=== PATIENT | male | born 1975 | race Hispanic/Latino ===

== ENCOUNTER 2024-09-06 19:13 | Emergency (ER) | payer SELFPAY ==
[~2024-09-06] VITALS: Ht 185.4 cm; Wt 106.1 kg
[2024-09-06 20:14] LABS: BASOPHILS # (AUTO) 0.09 K/uL (0.00-0.20); BASOPHILS % (AUTO) 0.7 % (0.0-5.0); EOSINOPHILS # (AUTO) 0.35 K/uL (0.00-0.70); EOSINOPHILS % (AUTO) 2.6 % (0.0-8.0); HEMATOCRIT 37.2 % (42-54); IMMATURE GRANULOCYTE ABSOLUTE 0.08 K/uL (0-1); LYMPHOCYTES # (AUTO) 2.1 K/uL (1.0-4.8); LYMPHOCYTES % (AUTO) 15.5 % (21.0-51.0); MEAN CORPUSCULAR HEMOGLOBIN 29.9 pg (27.0-33.0); MEAN CORPUSCULAR HGB CONC 34.7 g/dL (32.0-36.0); MEAN CORPUSCULAR VOLUME 86.1 fL (79-99); MONOCYTES # (AUTO) 1.4 K/uL (0.1-1.0); MONOCYTES % (AUTO) 10.4 % (3.0-13.0); NEUTROPHILS # (AUTO) 9.5 K/uL (1.8-7.7); NEUTROPHILS % (AUTO) 70.2 % (40.0-77.0); PLATELET COUNT (AUTO) 252 K/uL (130-400); RED BLOOD CELL COUNT(AUTO) 4.32 MIL/uL (4.50-6.20); RED CELL DISTRIBUTION WIDTH 13.6 % (11.0-15.5); WHITE BLOOD COUNT (AUTO) 13.5 K/uL (4.8-10.8)
[2024-09-06 20:28] LABS: CARBON DIOXIDE 24 mmol/L (21-32); CHLORIDE 106 mmol/L (101-111); GLOMERULAR FILTR. RATE CALC 93 mL/min (>90); GLUCOSE,RANDOM 99 mg/dL (70-105); POTASSIUM 4.2 mmol/L (3.5-5.1); SODIUM SERUM 138 mmol/L (136-145); UREA NITROGEN, BLOOD 9 mg/dL (7-18)
--- NOTE | 2024-09-06 20:31 | HMCIMG ---
RIGHT FOOT RADIOGRAPHS - 3 VIEWS INDICATION: Nonhealing ulcer right great toe COMPARISON: None FINDINGS: AP, lateral, and oblique views. No acute fracture or subluxation identified. No evidence for periosteal reaction, cortical erosive changes, or any abnormal subperiosteal bone resorption. Midfoot alignment is well maintained. No radiopaque foreign body noted. IMPRESSION: No evidence for osteomyelitis.
--- NOTE | 2024-09-06 21:30 | NUR ---
WOUND CARE DONE ORDERED
[2024-09-06 21:47] LABS: ERYTHROCYTE SEDIMENTATION RATE 27 MM/HR (0-15)
[2024-09-06] MEDS: CLINDAMYCIN IVPB 600MG/50ML 50 ML IV SCH (22:12)
[2024-09-06] MEDS: ketOROlac 15MG/ML VIAL (15MG/ML) IV ONE (22:12)
[2024-09-06] MEDS ORDERED: CLIN-141 PO (23:09)
[2024-09-06] MEDS ORDERED: KETO10TA2 PO (23:10)
--- NOTE | 2024-09-06 23:11 | ERN ---
General Chief Complaint: Wound Check Stated Complaint: RIGHT FOOT SWOLLEN Time Seen by MD: 19:16 Time Seen by Midlevel: 19:16 Source: patient History of Present Illness Initial Comments The patient is a 49-year-old morbidly obese male with a past medical history of uncontrolled type 2 diabetes presenting to the emergency department for evaluation of a wound to his right great toe. The patient reports have having a diabetic foot ulcer under his right great toe for the last eight months. Most recently he has noticed an increase in redness to his great toe so he decided to report to the ER for further evaluation. He does not take any medication for his 80s. The last time he took medication was six months ago and it was metformin. Denies any other symptoms. Allergies: Coded Allergies: No Known Allergies (Unverified Allergy, Unknown, 09/06/24) Home Meds Active Scripts Ketorolac Tromethamine (Ketorolac Tromethamine) 10 Mg Tablet, 1 TAB PO TID for pain for 5 Days, #15 TAB 0 Refills Prov:JARROD COLON 09/06/24 Clindamycin HCl (Clindamycin HCl) 300 Mg Capsule, 1 CAP PO QID for 10 Days, #40 CAP 0 Refills Prov:JARROD COLON 09/06/24 Past Medical History Past Medical History: Diabetes-Type II Past Surgical History: Unknown ROS Dictation CONSTITUTIONAL: Negative except for HPI HEAD/FACE: Negative except for HPI EENT: Negative except for HPI RESPIRATORY: Negative except for HPI GASTROINTESTINAL/ABDOMINAL: Negative except for HPI GENITOURINARY: Negative except for HPI MUSCULOSKELETAL: Negative except for HPI INTEGUMENTARY: Negative except for HPI NEUROLOGICAL/PSYCH: Negative except for HPI HEMATOLOGIC/LYMPHATIC: Negative except for HPI All Systems Negative, Except as noted above. 13 point review of systems assessed and all negative except for above. Physical Exam Physical Exam Dictation Vital Signs reviewed General Appearance: Alert, oriented x 3, no acute distress, morbidly obese Head and Face: non-traumatic. Eyes: PERRL, pink conjunctivas, eyelid no trauma, anterior chamber with arcus senilis. Ears: Pinnas intact and no signs of trauma or erythema ear canals clear and no discharge TM no erythema Nose: No discharge, no bleeding. Oropharynx: Mouth normal, tongue pink, pharynx clear,no erythema, tonsils no exudates, no abscesses noted, mucous membrane moist Neck: Supple, non-tender, no thyromegaly, no masses, no JVD, no bruits Breast:Deferred Chest:No tenderness, no crepitus, no paradoxical movement, no retractions Lungs:Clear, well-ventilated, symmetric, no rales, no wheezing, no rhonchi, no stridor, good breath sounds bilaterally Heart: Regular rate, regular rhythm, no murmur, no gallops Vascular: no peripheral edema, Abdomen: Soft, positive bowel sounds, nondistended, no guarding, nontender, no rebound, no masses no hepatomegaly, no splenomegaly, no Cotter's sign, no hernias. Rectal: Deferred Genital: Deferred Neurological: Normal speech, motor function intact, sensory function intact Musculoskeletal: Neck nontender, full range of motion, back nontender, full range of motion, Extremities: nontender, full range of motion Skin: Diabetic foot ulcer to the plantar aspect of the right great toe, there is some mild soft tissue swelling and redness to the right great toe. Pulses intact. Lymphatic: Deferred Results Laboratory and Microbiology Lab and Micro Result Laboratory Tests Test 09/06/24 20:00 White Blood Count 13.5 K/uL (4.8-10.8) H Red Blood Count 4.32 MIL/uL (4.50-6.20) L Hemoglobin 12.9 g/dL (14.0-18.0) L Hematocrit 37.2 % (42-54) L Mean Corpuscular Volume 86.1 fL (79-99) Mean Corpuscular Hemoglobin 29.9 pg (27.0-33.0) Mean Corpuscular Hemoglobin Concent 34.7 g/dL (32.0-36.0) Red Cell Distribution Width 13.6 % (11.0-15.5) Platelet Count 252 K/uL (130-400) Mean Platelet Volume 11.1 fL (7.5-10.5) H Immature Granulocyte % (Auto) 0.6 % (0-1) Neutrophils (%) (Auto) 70.2 % (40.0-77.0) Lymphocytes (%) (Auto) 15.5 % (21.0-51.0) L Monocytes (%) (Auto) 10.4 % (3.0-13.0) Eosinophils (%) (Auto) 2.6 % (0.0-8.0) Basophils (%) (Auto) 0.7 % (0.0-5.0) Neutrophils # (Auto) 9.5 K/uL (1.8-7.7) H Lymphocytes # (Auto) 2.1 K/uL (1.0-4.8) Monocytes # (Auto) 1.4 K/uL (0.1-1.0) H Eosinophils # (Auto) 0.35 K/uL (0.00-0.70) Basophils # (Auto) 0.09 K/uL (0.00-0.20) Absolute Immature Granulocyte (auto 0.08 K/uL (0-1) Nucleated Red Blood Cells 0.0 % (0.0-0.19) Erythrocyte Sedimentation Rate 27 MM/HR (0-15) H Sodium Level 138 mmol/L (136-145) Potassium Level 4.2 mmol/L (3.5-5.1) Chloride Level 106 mmol/L (101-111) Carbon Dioxide Level 24 mmol/L (21-32) Blood Urea Nitrogen 9 mg/dL (7-18) Creatinine 1.0 mg/dL (0.5-1.3) Glomerular Filtration Rate Calc 93 mL/min (>90) Random Glucose 99 mg/dL (70-105) Whole Blood Ketones Quantitative < 0.1 mmol/L (0.0-0.6) Lactic Acid Level 1.0 mmol/L (0.8-2.5) Total Calcium 8.4 mg/dL (8.5-10.1) L Labs Reviewed?: Yes MDM MDM: The patient is a 49-year-old morbidly obese male with a past medical history of uncontrolled type 2 diabetes presenting to the emergency department for evaluation of a wound to his right great toe. The patient reports have having a diabetic foot ulcer under his right great toe for the last eight months. Most recently he has noticed an increase in redness to his great toe so he decided to report to the ER for further evaluation. He does not take any medication for his 80s. The last time he took medication was six months ago and it was metformin. Denies any other symptoms. Patient was sent by his primary care doctor to rule out osteomyelitis. On physical examination there is a diabetic foot ulcer to the plantar aspect of the right great toe, there is some mild soft tissue swelling and redness to the right great toe. Pulses intact. His CBC shows leukocytosis with a white blood cell count of 13.5. No thrombocytopenia. There is mild anemia with a hemoglobin of 12.9. Chemistries are unremarkable. Lactic acid is normal. Ketones are negative. Random glucose is 99 which is unremarkable given his history of uncontrolled diabetes. His sed rate is normal. X-ray of the right foot shows no changes consistent with osteomyelitis. It appears patient has symptoms are chronic in nature with an acute component of soft tissue infection. The patient was given a loading dose of clindamycin in the emergency department and will be discharged home on oral antibiotics. Patient will need to follow up with Podiatry outpatient. Differential diagnosis: Cellulitis, osteomyelitis, diabetic foot ulcer There are no social concerns with this patient. Prescription drug management Prescriptions will include: Medical management and examination interpretation discussions were had by me with other qualified healthcare professionals as indicated for the patient's care. ED Course Orders Procedure Category Date Status Time Cbc With Differential LAB 09/06/24 Complete 19:32 Basic Metabolic Panel LAB 09/06/24 Complete 19:32 Erythrocyte LAB 09/06/24 Complete Sedimentation Rate 19:32 Ketone Blood LAB 09/06/24 Complete Quantitative 19:32 Foot Comp 3+Vws Rt RAD 09/06/24 Resulted 19:32 Lactic Acid LAB 09/06/24 Complete 19:32 Aerobic Culture DILMA 09/06/24 In Process 21:31 Anaerobic Culture DILMA 09/06/24 In Process 21:31 Ketorolac PHA 09/06/24 Complete Tromethamine 15mg/Ml 22:00 Clindamycin Ivpb PHA 09/06/24 Complete 600mg/50ml (Cleocin 22:00 Current Medications Medications (Trade) Dose Ordered Sig/Jennifer Route PRN Reason Start Time Stop Time Status Last Admin Dose Admin Clindamycin HCl/ Dextrose 50 ml @ 100 mls/hr Q8H IV 09/06/24 22:00 09/06/24 23:32 DC 09/06/24 22:12 Ketorolac Tromethamine (toRADol) 15 mg ONCE ONCE IV 09/06/24 22:00 09/06/24 22:01 DC 09/06/24 22:12 Vital Signs Date Time Temp Pulse Resp B/P (MAP) Pulse Ox O2 Delivery O2 Flow Rate FiO2 09/06/24 23:30 99.0 68 18 134/75 98 Room Air* 0 09/06/24 20:07 99.9 71 18 131/85 99 Room Air* 0 09/06/24 19:27 99.3 75 20 144/83 97 Room Air DX & DISP Disposition: Discharge Departure Impression: Primary Impression: Diabetic foot ulcer Additional Impression: Cellulitis Condition: Stable Scripts Ketorolac Tromethamine (Ketorolac Tromethamine) 10 Mg Tablet 1 TAB PO TID for pain for 5 Days, #15 TAB 0 Refills Prov: JARROD COLON 09/06/24 Clindamycin HCl (Clindamycin HCl) 300 Mg Capsule 1 CAP PO QID for 10 Days, #40 CAP 0 Refills Prov: JARROD COLON 09/06/24 Additional Instructions: Your blood work today is stable. Your x-ray does not show any evidence of osteomyelitis. Your blood sugar today was 99. You were given IV antibiotics. You will need to continue oral antibiotics outpatient and will need to follow up with a heel dipper for further evaluation. Referrals: SELF,REFERRAL (PCP) [facility] HYMAN DPM Time of Disposition: 23:08 I have reviewed the case, and I agree with, Diagnosis and Plan I performed the substantive portion of the visit. I have reviewed and per sonally made and approve the management plan that is documented in the note by myself or the CARRIE. I acknowledge for responsibility for the patient's management plan. JARROD COLON September 06, 2024 23:11
[2024-09-06 23:30] VITALS: BP 134/75; PULSE 68; RESP 18; TEMP 99; O2SAT 98
== END 2024-09-06 23:31 | disposition home or self-care (01) ==
LOC: EDH 19:13
DX: E11.621 Type 2 diabetes mellitus with foot ulcer (principal); L97.519 Non-pressure chronic ulcer of other part of right foot with unspecified severity; E66.01 Morbid (severe) obesity due to excess calories; Z79.899 Other long term (current) drug therapy
CPT/HCPCS: 99284; 96365; 96375; 80048; 85025; 85651; 87076; 87086; 87186; 83605; 82010; 36415; 73630; 87070; J1885; J3490

== ENCOUNTER 2024-09-20 20:08 | Inpatient (IN) | payer SELFPAY ==
[~2024-09-20] VITALS: Ht 185.4 cm; Wt 106.6 kg
[~2024-09-20 20:08] MED LIST: CLIN-141 PO; KETO10TA2 PO
[2024-09-20 20:38] LABS: BASOPHILS # (AUTO) 0.05 K/uL (0.00-0.20); BASOPHILS % (AUTO) 0.4 % (0.0-5.0); EOSINOPHILS # (AUTO) 0.06 K/uL (0.00-0.70); EOSINOPHILS % (AUTO) 0.5 % (0.0-8.0); HEMATOCRIT 28.8 % (42-54); IMMATURE GRANULOCYTE ABSOLUTE 0.16 K/uL (0-1); LYMPHOCYTES # (AUTO) 1.1 K/uL (1.0-4.8); LYMPHOCYTES % (AUTO) 8.6 % (21.0-51.0); MEAN CORPUSCULAR HEMOGLOBIN 29.7 pg (27.0-33.0); MEAN CORPUSCULAR HGB CONC 35.4 g/dL (32.0-36.0); MONOCYTES # (AUTO) 0.9 K/uL (0.1-1.0); MONOCYTES % (AUTO) 7.3 % (3.0-13.0); NEUTROPHILS # (AUTO) 10.5 K/uL (1.8-7.7); PLATELET COUNT (AUTO) 357 K/uL (130-400); RED BLOOD CELL COUNT(AUTO) 3.43 MIL/uL (4.50-6.20); RED CELL DISTRIBUTION WIDTH 13.5 % (11.0-15.5); WHITE BLOOD COUNT (AUTO) 12.8 K/uL (4.8-10.8)
--- NOTE | 2024-09-20 20:54 | ERN ---
ED Note History of Present Illness Stated Complaint: LEFT FOOT AND LEG PAIN Chief Complaint: Wound Check Time Seen by MD: 20:10 Time Seen by Midlevel: 20:10 Dictation: The Patient is a 49-year-old male with a history of diabetes who presents to the emergency department with complaints of right foot swelling and redness associated with the big toe ulcer. Patient reports that the ulcer has been going on for about 8-9 months but the redness and swelling started a last month. Patient was seen ere on September 06 and started on clindamycin for cellulitis but patient reports worsening swelling and redness. Reports fever and chills at home. Allergies: Coded Allergies: No Known Allergies (Unverified Allergy, Unknown, 09/06/24) Home Meds Active Scripts Ketorolac Tromethamine (Ketorolac Tromethamine) 10 Mg Tablet, 1 TAB PO TID for pain for 5 Days, #15 TAB 0 Refills Prov:JARROD COLON 09/06/24 Clindamycin HCl (Clindamycin HCl) 300 Mg Capsule, 1 CAP PO QID for 10 Days, #40 CAP 0 Refills Prov:JARROD COLON 09/06/24 Past Medical History Past Medical History: Diabetes-Type II, Hypertension Surgical History: Other Surgical History Other: RIGHT THIGH I AND D RN Note Reviewed/Agreed w/PFSH: Yes Review of System Dictation Constitutional: Negative for weight loss positive for fever, chills Eyes: Negative for injury, pain,redness, and discharge ENT: Negative for injury,pain or swelling Cardiovascular: Negative for chest pain, palpitations, and edema Respiratory: Negative for shortness of breath, cough, and wheezing, Abdomen/GI: Negative for abdominal pain, nausea, vomiting, diarrhea, and constipation Back: Negative for injury and pain : Negative for injury, bleeding and discharge MS/Extremity: Negative for injury and deformity positive for right foot swelling Skin: Negative for rash, and discoloration positive for right toe ulcer Neuro: Negative for headache, weakness, numbness, tingling, and seizure Psych: Negative for suicide ideation, homicidal ideation, and hallucinations Initial Vital Sign VS Vital Signs Date Time Temp Pulse Resp B/P (MAP) Pulse Ox O2 Delivery O2 Flow Rate FiO2 09/20/24 20:14 100.6 82 18 139/75 99 Room Air 0 09/20/24 21:49 21 Physical Exam Dictation Vital Signs reviewed General Appearance: Alert, oriented x 3, no acute distress, well developed, nourished. Head and Face: non-traumatic. Eyes: PERRL, pink conjunctivas, eyelid no trauma, anterior chamber with arcus senilis. Ears: Pinnas intact and no signs of trauma or erythema ear canals clear and no discharge TM no erythema Nose: No discharge, no bleeding. Oropharynx: Mouth normal, tongue pink. pharynx clear,no erythema, tonsils no exudates, no abscesses noted, mucous membrane moist Neck: Supple, non-tender, no thyromegaly, no masses, no JVD, no bruits Breast:Deferred Chest:No tenderness, no crepitus, no paradoxical movement, no retractions Lungs:Clear, well-ventilated, symmetric, no rales, no wheezing, no rhonchi, no stridor, good breath sounds bilaterally Heart: Regular rate, regular rhythm, no murmur, no gallops Vascular: no peripheral edema, dorsalis pedis 2+ right foot Abdomen: Soft, positive bowel sounds, nondistended, no guarding, nontender, no rebound, no masses no hepatomegaly, no splenomegaly, no Cotter's sign, no hernias. Rectal: Deferred Genital: Deferred Neurological: Normal speech, motor function intact, sensory function intact Musculoskeletal: Neck nontender, full range of motion, back nontender, full range of motion, Extremities: nontender, full range of motion , swelling to right ankle, swelling to right foot, Skin: Color pink, dry, no turgor, no rash, no lacerations, no abrasions, no contusions. Erythema to right foot, plantar toe diabetic ulcer with a purulent drainage Lymphatic: Deferred Results (Laboratory/Radiology) Laboratory/Radiology Laboratory Tests Test 09/20/24 20:31 09/20/24 21:38 White Blood Count 12.8 K/uL (4.8-10.8) H Red Blood Count 3.43 MIL/uL (4.50-6.20) L Hemoglobin 10.2 g/dL (14.0-18.0) L Hematocrit 28.8 % (42-54) L Mean Corpuscular Volume 84.0 fL (79-99) Mean Corpuscular Hemoglobin 29.7 pg (27.0-33.0) Mean Corpuscular Hemoglobin Concent 35.4 g/dL (32.0-36.0) Red Cell Distribution Width 13.5 % (11.0-15.5) Platelet Count 357 K/uL (130-400) Mean Platelet Volume 9.6 fL (7.5-10.5) Immature Granulocyte % (Auto) 1.2 % (0-1) H Neutrophils (%) (Auto) 82.0 % (40.0-77.0) H Lymphocytes (%) (Auto) 8.6 % (21.0-51.0) L Monocytes (%) (Auto) 7.3 % (3.0-13.0) Eosinophils (%) (Auto) 0.5 % (0.0-8.0) Basophils (%) (Auto) 0.4 % (0.0-5.0) Neutrophils # (Auto) 10.5 K/uL (1.8-7.7) H Lymphocytes # (Auto) 1.1 K/uL (1.0-4.8) Monocytes # (Auto) 0.9 K/uL (0.1-1.0) Eosinophils # (Auto) 0.06 K/uL (0.00-0.70) Basophils # (Auto) 0.05 K/uL (0.00-0.20) Absolute Immature Granulocyte (auto 0.16 K/uL (0-1) Nucleated Red Blood Cells 0.0 % (0.0-0.19) White Cell Morphology Comment See comments Erythrocyte Sedimentation Rate > 150 MM/HR (0-15) H Sodium Level 131 mmol/L (136-145) L Potassium Level 3.7 mmol/L (3.5-5.1) Chloride Level 100 mmol/L (101-111) L Carbon Dioxide Level 22 mmol/L (21-32) Blood Urea Nitrogen 16 mg/dL (7-18) Creatinine 1.2 mg/dL (0.5-1.3) Glomerular Filtration Rate Calc 75 mL/min (>90) Random Glucose 198 mg/dL (70-105) H Lactic Acid Level 1.2 mmol/L (0.8-2.5) Total Calcium 8.2 mg/dL (8.5-10.1) L Total Creatine Kinase 103 U/L (21-232) Troponin I High Sensitivity 25 ng/L (4-75) Urine Color LIGHT-YELLOW (YELLOW) Urine Appearance CLEAR (CLEAR) Urine pH 6.0 (5.0-8.0) Urine Specific [place] 1.014 (1.001-1.031) Urine Protein 50 mg/dL (NEGATIVE) H Urine Glucose (UA) NEGATIVE mg/dL (NEGATIVE) Urine Ketones NEGATIVE mg/dL (NEGATIVE) Urine Occult Blood SMALL (NEGATIVE) H Urine Nitrate NEGATIVE (NEGATIVE) Urine Bilirubin NEGATIVE mg/dL (NEGATIVE) Urine Urobilinogen 4.0 mg/dL (0.2-1.0) H Urine Leukocyte Esterase NEGATIVE [place]/uL Urine RBC 0-1 /HPF (0-1) Urine WBC 0-1 /HPF (0-1) Urine Bacteria RARE /HPF (None Seen) Labs Reviewed?: Yes EKG: (+) rhythm (Sinus rhythm) EKG Comment: Date: Time:2108 Ventricular rate:71 IL interval:194 QRS duration:94 QT/QTc:348 EKG interpretation: Sinus rhythm Reviewed by ED Attending no STEMI ED Course ED Course Orders Procedure Category Date Status Time Iv Insertion CPOE 09/20/24 Transmitted 20:20 Pulse Ox(Continuous) RT 09/20/24 Transmitted 20:20 Vital Signs Per CPOE 09/20/24 Transmitted Routine 20:20 12 Lead Ekg Tracing- EKG 09/20/24 Logged Technical 20:20 Cbc With Differential LAB 09/20/24 Complete 20:20 Blood Cult DILMA 09/20/24 In Process 20:20 Urinalysis Profile LAB 09/20/24 Complete 20:20 Culture Urine DILMA 09/20/24 In Process 20:20 Creatine Kinase, Total LAB 09/20/24 Complete 20:20 Troponin I High LAB 09/20/24 Complete Sensitivity 20:20 Lactic Acid LAB 09/20/24 Complete 20:20 Basic Metabolic Panel LAB 09/20/24 Complete 20:20 Erythrocyte LAB 09/20/24 Complete Sedimentation Rate 20:24 Aerobic Culture DILMA 09/20/24 Logged 20:24 Anaerobic Culture DILMA 09/20/24 Logged 20:24 Foot Comp 3+Vws Rt RAD 09/20/24 Resulted 20:24 Acetaminophen 500mg PHA 09/20/24 Complete Tab (Tylenol 500mg T 20:30 Zosyn 3.375gm+Ns 50ml PHA 09/20/24 Complete (Zosyn 3.375gm+Ns 20:24 Vancomycin 1g/250ml PHA 09/20/24 Complete Kit (Vancomycin 1g/2 20:30 0.9%Nacl 1000ml (Ns PHA 09/20/24 Complete 1000ml) 20:30 Ankle Comp 3vws Rt RAD 09/20/24 Resulted 20:51 Edm Admit Bridge Order ADM 09/20/24 Transmitted 22:17 Vital Signs(Adult CPOE 09/20/24 Transmitted Hospitalist) 22:42 Daily Weights CPOE 09/20/24 Transmitted 22:42 I&O Q Shift CPOE 09/20/24 Transmitted 22:42 Fever: Blood Cx X 2 CPOE 09/20/24 Transmitted 22:42 Famotidine 20mg Tab PHA 09/21/24 Complete (Pepcid 20mg Tab) 09:00 Ondansetron 4mg Inj PHA 09/20/24 In Process (Zofran 4mg Inj) 23:00 Lactulose 20 Gm/30 Ml PHA 09/20/24 In Process Udcup (Constulose 23:00 Nurse To Enter Home CPOE 09/20/24 Transmitted Medication 22:42 Admit Orders ADM 09/20/24 Transmitted 22:42 Condition: CPOE 09/20/24 Transmitted 22:42 Activity: Ad Adrianne CPOE 09/20/24 Transmitted 22:42 Consistent Carb DIET 09/21/24 Transmitted Breakfast Apply Scds CPOE 09/20/24 Transmitted 22:42 Famotidine 20mg Tab PHA 09/21/24 In Process (Pepcid 20mg Tab) 09:00 Vancomycin 1g/250ml PHA 09/20/24 Complete Kit (Vancomycin 1g/2 23:00 Zosyn 3.375gm+Ns 50ml PHA 09/21/24 In Process (Zosyn 3.375gm+Ns 05:00 Hydrocodone/Apap PHA 09/20/24 In Process 5325 ([place] 5/325mg) 23:00 Hydrocodone/Apap PHA 25 In Process 5325 ([place] 5/325mg) 23:00 0.9%Nacl 1000ml (Ns PHA 09/20/24 In Process 1000ml) 23:00 Initiate ENEDELIA 09/20/24 In Process Hyperglycemia Protoco 22:42 Insulin Regular, PHA 09/21/24 In Process Human 3ml (Humulin R 07:30 Initiate Hypoglycemia ENEDELIA 09/20/24 In Process Protocol 22:42 Dextrose 50%-Water PHA 09/20/24 In Process (D50w) 23:00 Glucagon 1mg Kit PHA 09/20/24 In Process (Glucagon 1mg Kit) 23:00 Magnesium 2gm Premix PHA 09/20/24 In Process 50ml (Magnesium 2gm 23:00 Initiate Po ENEDELIA 09/20/24 In Process Hypokalemia Protoc 22:42 Potassium Chloride PHA 09/20/24 In Process 20meq/100ml ([place] 23:00 Potassium Chl 10% PHA 09/20/24 In Process Elixir 20meq (Kcl 10% 23:00 Potassium Chloride PHA 09/20/24 In Process 20meq Er (K-Dur/Klor- 23:00 Notify Physician If CPOE 09/20/24 Transmitted There Is 22:42 Notify Md On The Next CPOE 09/20/24 Transmitted 22:42 Notify Md On The CPOE 09/20/24 Transmitted Next(Cont.) 22:42 Podiatry Consult CONPHYSVC 09/20/24 Transmitted 22:42 Infectious Disease CONPHYSVC 09/20/24 Transmitted Consult 22:42 Mr Foot Right Wo MRI 09/20/24 Logged 22:42 Cbc With Differential LAB 09/21/24 Verified 04:00 Comprehensive LAB 09/21/24 Verified Metabolic Panel 04:00 Magnesium LAB 09/21/24 Verified 04:00 Hemoglobin A1c LAB 09/21/24 Verified 04:00 Lactic Acid LAB 09/21/24 Verified 04:00 Procalcitonin LAB 09/21/24 Verified 04:00 Vancomycin Protocol PHA 09/20/24 In Process (Vancomycin Protocol 23:30 Vancomycin Trough LAB 09/22/24 Verified 08:00 Vancomycin 1.5 Gm/250 PHA 09/21/24 In Process Ml Bag (Vancomycin 09:00 Vital Signs Date Time Temp Pulse Resp B/P (MAP) Pulse Ox O2 Delivery O2 Flow Rate FiO2 09/20/24 21:49 100.9 85 20 121/52 99 Room Air* 0 21 09/20/24 21:04 100.9 09/20/24 20:14 100.6 82 18 139/75 99 Room Air 0 Medical Decision Making MDM MDM: The Patient is a 49-year-old male with a history of diabetes who presents to the emergency department with complaints of right foot swelling and redness associated with the big toe ulcer. Patient reports that the ulcer has been going on for about 8-9 months but the redness and swelling started a last month. Patient was seen ere on September 06 and started on clindamycin for cellulitis but patient reports worsening swelling and redness. Reports fever and chills at home. CBC showed mild leukocytosis, mild normocytic anemia, chemistry showed mild hyponatremia, hypochloremia, blood glucose of 188, negative troponin, ESR of greater than 150 x-ray showed no osteomyelitis. Patient wound is getting worse and will be admitted for further evaluation and treatment. Differential diagnosis: Cellulitis, sepsis, osteomyelitis, diabetic ulcer Comorbidities: Diabetes Tests considered and not ordered secondary to shared decision making include: none Previous outside records reviewed: none Risk of complication and/or morbidity or mortality of patient management: The patient meets criteria for admission. Need for emergency major/minor surgery: No There are no social concerns with this patient. I independently interpreted the tests I ordered (labs, urinalysis, etc.). I discussed the case with the hospitalist for admission. [facility] who accepts admission I discussed the case with the following specialists: none. Historian: pateint. I independently interpreted imaging studies and EKGs that I ordered (US, CT, XR, EKG, etc.). External chart review: none. Medical management and examination interpretation discussions were had by me w ith other qualified healthcare professionals as indicated for the patient's care. DX & DISP Disposition: Inpatient Decision to Admit Date: Sep 20, 2024 Decision to Admit Time: 22:17 Departure Impression: Primary Impression: Cellulitis of right foot Additional Impressions: Diabetic ulcer of right great toe, Leukocytosis, Hyponatremia, Hypochloremia Condition: Stable Referrals: SELF,REFERRAL (PCP) I have reviewed the case, and I agree with, Diagnosis and Plan REINA SEAMAN [facility] Sep 20, 2024 20:54
[2024-09-20 21:03] LABS: CREATININE 1.2 mg/dL (0.5-1.3); POTASSIUM 3.7 mmol/L (3.5-5.1)
[2024-09-20] MEDS: [UNRECOGNIZED DRUG - OTHER] IV ONE (21:04)
[2024-09-20] MEDS: acetaMINOPHEN 500 MG TABLET PO ONE (21:04)
[2024-09-20] MEDS: VANCOMYCIN 1G/250ML KIT 250 ML IV ONE (21:04)
[2024-09-20] MEDS: ZOSYN 3.375GM+NS 50ML 50 ML IVPB STA (21:04)
--- NOTE | 2024-09-20 21:12 | HMCIMG ---
Exam Type: FOOT COMP 3+VWS RT, ANKLE COMP 3VWS RT Clinical Information: r/o osteomyelitis, swelling, cellulitis Comparison: None Findings and impression: Soft tissue swelling of the ankle consistent with cellulitis or sprain. No fractures or dislocations. Calcaneal spurs. No bone destruction to suggest osteomyelitis
[2024-09-20 21:46] LABS: ADD UA MICROSCOPIC YES; APPEARANCE,URINE CLEAR (CLEAR); BILIRUBIN,URINE NEGATIVE (NEGATIVE); COLOR,URINE LIGHT-YELLOW (YELLOW); GLUCOSE, URINE (UA) NEGATIVE (NEGATIVE); KETONES,URINE NEGATIVE (NEGATIVE); LEUKOCYTE ESTERASE ,URINE NEGATIVE Leu/uL (NEGATIVE); NITRATE,URINE NEGATIVE (NEGATIVE); OCCULT BLOOD,URINE SMALL (NEGATIVE); PROTEIN,URINE 50 mg/dL (NEGATIVE)
[2024-09-20 21:51] LABS: BACTERIA,URINE RARE /HPF (None Seen); RBC,URINE 0-1 /HPF (0-1); WBC,URINE 0-1 /HPF (0-1)
[2024-09-20] MEDS ORDERED: MAGNESIUM 2GM PREMIX 50ML 50 ML IV PRN (23:00)
[2024-09-20] MEDS ORDERED: GLUCAGON 1MG KIT 1 MG ML IM PRN (23:00)
[2024-09-20] MEDS ORDERED: PoTASSium chloRIDE 20MEQ/100ML 100 ML IV PRN (23:00)
[2024-09-20] MEDS ORDERED: ondanSETRON 4MG INJ IV PRN (23:00)
[2024-09-20] MEDS ORDERED: VANCOMYCIN 1G/250ML KIT 250 ML IV SCH (23:00)
[2024-09-20] MEDS ORDERED: PoTASSium chl 10% ELIXIR 20MEQ 20 MEQ/15 ML UDCUP PO PRN (23:00)
[2024-09-20] MEDS ORDERED: DEXTROSE 50%-WATER 50 ML DISP.SYRIN IV PRN (23:00)
[2024-09-20] MEDS: 0.9%NACL 1000ML 1,000 ML IV SCH (23:01)
--- NOTE | 2024-09-20 23:11 | HP ---
[facility] Date of Service: Sep 20, 2024 Time of Service: 22:42 PCP: Self-referral HISTORY OF PRESENT ILLNESS: This is a 49-year-old male with past medical history of diabetes who presents to the ED for complaints of swelling, redness and pain to the right ankle which started 4 days ago.Patient reports he has an old ulcer underneath his right big toe and has been an ongoing ulcer for almost 9 months and he was seen in this facility last August for his right big toe ulcer was given antibiotic and so far it improves ,not as painful and swollen like it was he said however the swelling went to his right ankle.Patient denies trauma,injury or any insect bites and today pain is worse and he is having difficulty walking and on and off fever so he decided to come to the Ed for evaluation. Seen and examined patient in the ER awake alert and coherent appears uncomfortable complaints of 9/10 pain level to the right foot. Patient denies nausea, vomiting, abdominal pain, chest pain, palpitation and shortness of breaths. Latest vital signs temperature a 100.9, heart rate 85, blood pressure 121/52 saturation 99% on room air. Labs: WBC 12.8 with negative left shift of neutrophils 82, hemoglobin 10.2, hematocrit 28 platelet count 357, ESR >150. Sodium 131, chloride 100, glucose 198, total calcium 8.2 troponin 25. Right foot ankle x-ray result revealed soft tissue swelling of the ankle consistent with cellulitis or sprain. No fractures or dislocations. Calcaneal spurs. No bone destruction to suggest osteomyelitis. Right foot x-ray result revealed soft tissue swelling of the ankle consistent with cellulitis or sprain. No fracture or dislocation . Calcaneal spurs. No bone destruction to suggest osteomyelitis. While in the ER patient received Tylenol 1000 mg p.o., vancomycin 125 mL/hour, Zosyn IV, and fluid resuscitation of 30 mL/kilogram over 3 hours of NS. We will admit patient for further medical management. REVIEW OF SYSTEMS CONSTITUTIONAL: Denies fevers, chills, or night sweats. No unintentional weight loss reported. NEUROLOGICAL: Denies headache, amaurosis fugax, motor weakness, sensory deficit, vertigo/spinning sensation, gait abnormalities, or tremors. ENT: No hearing loss, otalgia, otorrhea, rhinitis, rhinorrhea, hoarseness, or sore throat. CARDIOVASCULAR: Denies any exertional angina, dyspnea on exertion, orthopnea, paroxysmal nocturnal dyspnea, palpitations, life-threatening arrhythmias, claudication. PULMONARY: Denies any shortness of breath, cough, phlegm/sputum, hemoptysis, pleuritic chest pain. SLEEP: Denies morning headaches, daytime somnolence or napping. Denies di fficulty falling asleep, staying asleep, waking from sleep. Denies knowledge of snoring. GASTROINTESTINAL: Denies any type of dysphagia to either liquids or solids. Denies nausea, vomiting, pyrosis, early satiety, abdominal pain, diarrhea, constipation, or changes in stool consistency or caliber. Denies coffee-ground emesis, hematemesis, hematochezia, or melanotic stools. GENITOURINARY: Denies frequency, urgency, nocturia, hematuria or incontinence (Storage/Irritative symptoms.) Low urinary stream, straining to void, urinary intermittency or hesitancy, splitting of the voiding stream, terminal dribbling. ENDOCRINOLOGIC: Denies polyuria, polydipsia, polyphagia or heat/cold intolerances. HEMATOLOGIC: Denies thrombophilia/previous clots, or coagulopathy/bleeding disorders. ONCOLOGIC: Denies personal history of malignancy. DERMATOLOGIC: Denies rashes or pruritus. PSYCHIATRIC: Denies any suicidal or homicidal ideation. Denies hallucinations. PAST MEDICAL HISTORY: [ Diabetes ] PAST SURGICAL HISTORY: [ Patient denies ] PAST SOCIAL HISTORY: [ Patient lives alone. Patient admits to smoking one pack of cigarette every two days admits to drinking four beers per month denies recreational drug use] FAMILY HISTORY: [ Noncontributory ] Coded Allergies: No Known Allergies (Unverified Allergy, Unknown, 09/06/24) PHYSICAL EXAM GENERAL APPEARANCE: The patient is awake, alert, and oriented, in no acute cardiopulmonary distress. NEUROLOGICAL: Cranial nerves II-XII grossly intact. Motor is 5/5 in bilateral upper and lower extremities proximal to distal. No sensory deficits. HEENT: Face is symmetric. Pupils are equal and reactive. Extraocular movements are intact. NECK: Supple. No JVD. No thyromegaly. No submental, submandibular, pre- /postauricular, occipital or supraclavicular lymphadenopathy. CHEST: Normal chest expansion. No Telemetry. LUNGS: Absence of any rales, rhonchi or any wheezing. CARDIOVASCULAR: Regular. S1 and S2 normal. No appreciable rubs, murmurs or gallops. ABDOMEN: Soft, nontender, and nondistended. There is no rebound, voluntary guarding, or rigidity. : Deferred. No Newman. EXTREMITIES: Right foot swelling and redness SKIN: Poor healing wound ulcer to right big toe Vital Sign (Last 24 Hours) 09/20/24 21:49 Temp 100.9 Pulse 85 Resp 20 B/P (MAP) 121/52 Pulse Ox 99 O2 Delivery Room Air* O2 Flow Rate 0 FiO2 21 LABS: Laboratory: Test 09/20/24 21:38 09/20/24 20:31 Range/Units Urine Color LIGHT-YELLOW YELLOW Urine Appearance CLEAR CLEAR Urine pH 6.0 5.0-8.0 Urine Specific [place] 1.014 1.001-1.031 Urine Protein 50 H NEGATIVE mg/dL Urine Glucose (UA) NEGATIVE NEGATIVE mg/dL Urine Ketones NEGATIVE NEGATIVE mg/dL Urine Occult Blood SMALL H NEGATIVE Urine Nitrate NEGATIVE NEGATIVE Urine Bilirubin NEGATIVE NEGATIVE mg/dL Urine Urobilinogen 4.0 H 0.2-1.0 mg/dL Urine Leukocyte Esterase NEGATIVE NEGATIVE Marshall/uL Urine RBC 0-1 0-1 /HPF Urine WBC 0-1 0-1 /HPF Urine Bacteria RARE None Seen /HPF White Blood Count 12.8 H 4.8-10.8 K/uL Red Blood Count 3.43 L 4.50-6.20 MIL/uL Hemoglobin 10.2 L 14.0-18.0 g/dL Hematocrit 28.8 L 42-54 % Mean Corpuscular Volume 84.0 79-99 fL Mean Corpuscular Hemoglobin 29.7 27.0-33.0 pg Mean Corpuscular Hemoglobin Concent 35.4 32.0-36.0 g/dL Red Cell Distribution Width 13.5 11.0-15.5 % Platelet Count 357 130-400 K/uL Mean Platelet Volume 9.6 7.5-10.5 fL Immature Granulocyte % (Auto) 1.2 H 0-1 % Neutrophils (%) (Auto) 82.0 H 40.0-77.0 % Lymphocytes (%) (Auto) 8.6 L 21.0-51.0 % Monocytes (%) (Auto) 7.3 3.0-13.0 % Eosinophils (%) (Auto) 0.5 0.0-8.0 % Basophils (%) (Auto) 0.4 0.0-5.0 % Neutrophils # (Auto) 10.5 H 1.8-7.7 K/uL Lymphocytes # (Auto) 1.1 1.0-4.8 K/uL Monocytes # (Auto) 0.9 0.1-1.0 K/uL Eosinophils # (Auto) 0.06 0.00-0.70 K/uL Basophils # (Auto) 0.05 0.00-0.20 K/uL Absolute Immature Granulocyte (auto 0.16 0-1 K/uL Nucleated Red Blood Cells 0.0 0.0-0.19 % White Cell Morphology Comment See comments Erythrocyte Sedimentation Rate > 150 H 0-15 MM/HR Sodium Level 131 L 136-145 mmol/L Potassium Level 3.7 3.5-5.1 mmol/L Chloride Level 100 L 101-111 mmol/L Carbon Dioxide Level 22 21-32 mmol/L Blood Urea Nitrogen 16 7-18 mg/dL Creatinine 1.2 0.5-1.3 mg/dL Glomerular Filtration Rate Calc 75 >90 mL/min Random Glucose 198 H 70-105 mg/dL Lactic Acid Level 1.2 0.8-2.5 mmol/L Total Calcium 8.2 L 8.5-10.1 mg/dL Total Creatine Kinase 103 21-232 U/L Troponin I High Sensitivity 25 4-75 ng/L Current Medications Medications (Trade) Dose Ordered Sig/Jennifer Route PRN Reason Start Time Stop Time Status Last Admin Dose Admin Piperacillin Sod/ Tazobactam Sod 50 ml @ 200 mls/hr STAT STAT IVPB 09/20/24 20:24 09/20/24 20:38 DC 09/20/24 21:04 200 MLS/HR DIAGNOSTICS / RADIOLOGY: [ ] ASSESSMENT: Right ankle cellulitis POA Poor wound healing ulcer to right big toe POA Uncontrolled diabetes POA Obesity POA Acute normocytic normochromic anemia Hyponatremia POA Nicotine dependence POA Active alcohol drinker POA PLAN: We will admit patient in medical surgical We will start on consistent carb diet We will start NS @ 100 ml / hr x1 bag and re evaluate We will start patient on Zosyn IV and vancomycin IV for broad-spectrum coverage We will start on Famotidine 20 mg p.o. bid for GI prophylaxis We will replace electrolytes as needed per protocol We will start on insulin sliding scale AC & HS with hypoglycemia protocol We will add prn medication for fever,pain,cough ,nausea and vomiting We will obtain MR I of right foot without contrast Counseled on smoking and alcohol use cessation We will seek podiatry consultation We will seek Infectious Disease consultation We will reconcile home meds once medlist available We will follow up urine culture , blood and wound culture We will request labs in am Further orders to follow depending on above results Case discussed with attending physician and came up with above treatment and plan of care. ADVANCED CARE PLANNING 1. Which of the following were discussed? Hospice Care - No Therapeutic options - Yes Advance Directives - No Other discussions - 2. Discussed with who? Patient 3. Voluntary nature of this service was explained to the patient? Yes 4. Amount of time spent - __22 5. Reviewed by Physician? (if this service was performed by NPP) Yes Patient seen and examined by me. Agree with note by [employer] SEE ADDITIONAL ORDERS PER CHART DISCUSSED WITH NURSING STAFF ISABEL AGEE [facility] Sep 20, 2024 23:10
[2024-09-20] MEDS ORDERED: VANCOMYCIN PROTOCOL PER PHARMACY IV SCH (23:30)
[2024-09-21] VITALS (10 sets, daily range): BP systolic 110–145; BP diastolic 49–76; PULSE 67–82; RESP 18–20; TEMP 98.4–102.3; O2SAT 94–100
[2024-09-21] MEDS: HYDROcodone/APAP 5/325 1 TAB TABLET PO PRN ×2 (01:42→05:45)
[2024-09-21] MEDS: ZOSYN 3.375GM+NS 50ML 50 ML IV SCH (05:44)
[2024-09-21 05:45] LABS: BASOPHILS # (AUTO) 0.05 K/uL (0.00-0.20); BASOPHILS % (AUTO) 0.4 % (0.0-5.0); EOSINOPHILS # (AUTO) 0.04 K/uL (0.00-0.70); EOSINOPHILS % (AUTO) 0.3 % (0.0-8.0); HEMATOCRIT 28.1 % (42-54); LYMPHOCYTES # (AUTO) 1.4 K/uL (1.0-4.8); LYMPHOCYTES % (AUTO) 10.1 % (21.0-51.0); MEAN CORPUSCULAR HEMOGLOBIN 29.4 pg (27.0-33.0); MEAN CORPUSCULAR HGB CONC 33.8 g/dL (32.0-36.0); MONOCYTES # (AUTO) 1.3 K/uL (0.1-1.0); MONOCYTES % (AUTO) 9.4 % (3.0-13.0); NEUTROPHILS # (AUTO) 10.7 K/uL (1.8-7.7); NEUTROPHILS % (AUTO) 79.1 % (40.0-77.0); PLATELET COUNT (AUTO) 346 K/uL (130-400); RED BLOOD CELL COUNT(AUTO) 3.23 MIL/uL (4.50-6.20); RED CELL DISTRIBUTION WIDTH 13.9 % (11.0-15.5); WHITE BLOOD COUNT (AUTO) 13.5 K/uL (4.8-10.8)
[2024-09-21 06:04] LABS: ALBUMIN 2.1 g/dL (3.5-5.0); BILIRUBIN,TOTAL 0.8 mg/dL (0.2-1.0); CREATININE 1.2 mg/dL (0.5-1.3); MAGNESIUM 1.8 mg/dL (1.80-2.40); POTASSIUM 3.8 mmol/L (3.5-5.1); TOTAL PROTEIN, SERUM 6.5 g/dL (6.0-8.3)
[2024-09-21 06:07] LABS: HEMOGLOBIN A1C 7.6 % (4.0-6.0)
--- NOTE | 2024-09-21 06:35 | EKG ---
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
[2024-09-21] MEDS: INSULIN humuLIN R 100 UNIT/ML 3ML SQ SCH (07:30)
[2024-09-21] MEDS: FAMOTIDINE 20MG TAB PO SCH (08:49)
[2024-09-21] MEDS: PoTASSium chloRIDE 20MEQ ER 20 MEQ ERTAB PO PRN (08:49)
[2024-09-21] MEDS: VANCOMYCIN 1.5 GM/250 ML BAG 250 ML IV SCH (08:50)
[2024-09-21] MEDS: LACTULOSE 20 GM/30 ML UDCUP PO PRN (08:51)
[2024-09-21] MEDS ORDERED: FAMOTIDINE 20MG TAB PO SCH (09:00)
--- NOTE | 2024-09-21 09:54 | HMCIMG ---
Exam Type: CHEST 1VW Clinical Information: Shortness of breath on exertion, leukocytosis Comparison: None Findings: The lungs are clear of infiltrates. The heart is normal in size. The bony and soft tissue structures of the chest are unremarkable. Impression: Clear lungs.
--- NOTE | 2024-09-21 10:54 | PN ---
[facility] PROGRESS NOTE Date of Service: Sep 21, 2024 Time of Service: 10:54 SUBJECTIVE: The patient is a 49-year-old male with a past medical history of type 2 diabetes mellitus presented to the emergency department with swelling, redness, and pain in his right ankle. Additionally, he has had an ulcer on his right big toe for approximately nine months. The patient was seen at this facility on September 06 and prescribed antibiotics; however, he did not complete the course. While the pain slightly improved, the swelling worsened and extended further into the right ankle. In the emergency department, the patient was febrile, with a temperature of 10 0.9F. Laboratory results showed a white blood cell count of 12.8, an ESR greater than 150, sodium levels of 131, and glucose levels of 198. An X-ray of the right foot and ankle indicated soft tissue swelling consistent with cellulitis, but no evidence of bony destruction or osteomyelitis was found. The patient received fluid resuscitation and was started on vancomycin and Zosyn. He was admitted for further management. 09/21/24: The patient was examined at bedside today. He had a fever of 102F at 4:00 a.m. but was otherwise normotensive and breathing room air. He is complaining of swelling and pain in his right foot, which is very sensitive and extremely tender to the touch. The patient is a chronic smoker, consuming one pack of cigarettes every two days for the past 33 years, and he does not have an established primary care provider. 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 He denies any vomiting, abdominal pain, dizziness, or other complaints. Laboratory results show that his white blood cell count has increased to 13.5 from 12.8, with neutrophils at 79.1%. His hemoglobin is at 9.5 g/dL, and hematocrit is at 28.1%. Kidney function tests are normal, blood sugar is 140 mg/dL, and a procalcitonin level is 0.51. We will continue treatment with 0.9% NaCl at 100 cc/hour, Zosyn, and vancomycin. An MRI of foot without contrast is pending. Podiatry recommendations are available, Iodosorb daily for wound care. The 10 mL fluid over foot swelling was aspirated, which was sent for analysis by the Infectious Disease provider. Wound cultures, both aerobic and anaerobic, are pending. Further assessment and planning will be discussed below. REVIEW OF SYSTEMS CONSTITUTIONAL: Complaints of fever, no chills, or night sweats. No unintentional weight loss reported. NEUROLOGICAL: Denies headache, amaurosis fugax, motor weakness, sensory deficit, vertigo/spinning sensation, gait abnormalities, or tremors. ENT: No hearing loss, otalgia, otorrhea, rhinitis, rhinorrhea, hoarseness, or sore throat. CARDIOVASCULAR: Denies any exertional angina, dyspnea on exertion, orthopnea, paroxysmal nocturnal dyspnea, palpitations, life-threatening arrhythmias, claudication. PULMONARY: Denies any shortness of breath, cough, phlegm/sputum, hemoptysis, pleuritic chest pain. SLEEP: Denies morning headaches, daytime somnolence or napping. Denies difficulty falling asleep, staying asleep, waking from sleep. Denies knowledge of snoring. GASTROINTESTINAL: Denies any type of dysphagia to either liquids or solids. Denies nausea, vomiting, pyrosis, early satiety, abdominal pain, diarrhea, constipation, or changes in stool consistency or caliber. Denies coffee-ground emesis, hematemesis, hematochezia, or melanotic stools. GENITOURINARY: Denies frequency, urgency, nocturia, hematuria or incontinence (Storage/Irritative symptoms.) Low urinary stream, straining to void, urinary intermittency or hesitancy, splitting of the voiding stream, terminal dribbling. ENDOCRINOLOGIC: Denies polyuria, polydipsia, polyphagia or heat/cold intolerances. HEMATOLOGIC: Denies thrombophilia/previous clots, or coagulopathy/bleeding disorders. ONCOLOGIC: Denies personal history of malignancy. DERMATOLOGIC: Complaints of right ankle and foot swelling pain, ulcer over right great toe Denies rashes or pruritus. PSYCHIATRIC: Denies any suicidal or homicidal ideation. Denies hallucinations. PHYSICAL EXAM GENERAL APPEARANCE: The patient is awake, alert, and oriented, in no acute cardiopulmonary distress. NEUROLOGICAL: Cranial nerves II-XII grossly intact. Motor is 5/5 in bilateral upper and lower extremities proximal to distal. No sensory deficits. HEENT: Face is symmetric. Pupils are equal and reactive. Extraocular movements are intact. NECK: Supple. No JVD. No thyromegaly. No submental, submandibular, pre- /postauricular, occipital or supraclavicular lymphadenopathy. CHEST: Normal chest expansion. No Telemetry. LUNGS: Absence of any rales, rhonchi or any wheezing. CARDIOVASCULAR: Regular. S1 and S2 normal. No appreciable rubs, murmurs or gallops. ABDOMEN: Soft, nontender, and nondistended. There is no rebound, voluntary guarding, or rigidity. : Deferred. No Newman. EXTREMITIES: Right foot swelling, redness and tenderness. Rashes, pruritus SKIN: Poor healing wound ulcer to right big toe Vital Signs (last 8hr) Date Time Temp Pulse Resp B/P (MAP) Pulse Ox O2 Delivery O2 Flow Rate FiO2 09/21/24 08:00 98.4 67 20 110/64 97 Room Air 09/21/24 04:00 102.0 81 20 122/60 Room Air LABS: Laboratory: Test 09/21/24 05:42 09/21/24 05:10 09/20/24 21:38 09/20/24 20:31 Range/Units Whole Blood Glucose 140 H 70-110 MG/DL White Blood Count 13.5 H 4.8-10.8 K/uL Red Blood Count 3.23 L 4.50-6.20 MIL/uL Hemoglobin 9.5 L 14.0-18.0 g/dL Hematocrit 28.1 L 42-54 % Mean Corpuscular Volume 87.0 79-99 fL Mean Corpuscular Hemoglobin 29.4 27.0-33.0 pg Mean Corpuscular Hemoglobin Concent 33.8 32.0-36.0 g/dL Red Cell Distribution Width 13.9 11.0-15.5 % Platelet Count 346 130-400 K/uL Mean Platelet Volume 9.9 7.5-10.5 fL Immature Granulocyte % (Auto) 0.7 0-1 % Neutrophils (%) (Auto) 79.1 H 40.0-77.0 % Lymphocytes (%) (Auto) 10.1 L 21.0-51.0 % Monocytes (%) (Auto) 9.4 3.0-13.0 % Eosinophils (%) (Auto) 0.3 0.0-8.0 % Basophils (%) (Auto) 0.4 0.0-5.0 % Neutrophils # (Auto) 10.7 H 1.8-7.7 K/uL Lymphocytes # (Auto) 1.4 1.0-4.8 K/uL Monocytes # (Auto) 1.3 H 0.1-1.0 K/uL Eosinophils # (Auto) 0.04 0.00-0.70 K/uL Basophils # (Auto) 0.05 0.00-0.20 K/uL Absolute Immature Granulocyte (auto 0.10 0-1 K/uL Nucleated Red Blood Cells 0.0 0.0-0.19 % Sodium Level 137 136-145 mmol/L Potassium Level 3.8 3.5-5.1 mmol/L Chloride Level 105 101-111 mmol/L Carbon Dioxide Level 21 21-32 mmol/L Blood Urea Nitrogen 10 7-18 mg/dL Creatinine 1.2 0.5-1.3 mg/dL Glomerular Filtration Rate Calc 75 >90 mL/min Random Glucose 138 H 70-105 mg/dL Hemoglobin A1c 7.6 H 4.0-6.0 % Estimated Average Glucose (eAG) 171 H 70-126 mg/dL Lactic Acid Level 1.0 0.8-2.5 mmol/L Total Calcium 8.0 L 8.5-10.1 mg/dL Magnesium Level 1.80 1.80-2.40 mg/dL Total Bilirubin 0.8 0.2-1.0 mg/dL Aspartate Amino Transf (AST/SGOT) 12 10-37 U/L Alanine Aminotransferase (ALT/SGPT) 22 12-78 U/L Alkaline Phosphatase 104 50-136 U/L Total Protein 6.5 6.0-8.3 g/dL Albumin 2.1 L 3.5-5.0 g/dL Procalcitonin 0.51 H 0.05-0.5 ng/mL Urine Color LIGHT-YELLOW YELLOW Urine Appearance CLEAR CLEAR Urine pH 6.0 5.0-8.0 Urine Specific [place] 1.014 1.001-1.031 Urine Protein 50 H NEGATIVE mg/dL Urine Glucose (UA) NEGATIVE NEGATIVE mg/dL Urine Ketones NEGATIVE NEGATIVE mg/dL Urine Occult Blood SMALL H NEGATIVE Urine Nitrate NEGATIVE NEGATIVE Urine Bilirubin NEGATIVE NEGATIVE mg/dL Urine Urobilinogen 4.0 H 0.2-1.0 mg/dL Urine Leukocyte Esterase NEGATIVE NEGATIVE Marshall/uL Urine RBC 0-1 0-1 /HPF Urine WBC 0-1 0-1 /HPF Urine Bacteria RARE None Seen /HPF White Cell Morphology Comment See comments Erythrocyte Sedimentation Rate > 150 H 0-15 MM/HR Total Creatine Kinase 103 21-232 U/L Troponin I High Sensitivity 25 4-75 ng/L Current Medications Medications (Trade) Dose Ordered Sig/Jennifer Route PRN Reason Start Time Stop Time Status Last Admin Dose Admin Acetaminophen (TYLenol 325MG TAB) 650 mg Q6H PRN PO FEVER/HEADACHE 09/21/24 06:30 10/21/24 06:29 Acetaminophen/ Hydrocodone Bitart (NORco 5/325MG) 1 tab Q4H PRN PO MODERATE PAIN (4-6) 09/20/24 23:00 09/25/24 22:59 09/21/24 08:50 1 TAB Acetaminophen/ Hydrocodone Bitart (NORco 5/325MG) 2 tab Q4H PRN PO SEVERE PAIN (7-10) 09/20/24 23:00 09/25/24 22:59 09/21/24 05:45 2 TAB Dextrose (D50w) 50 ml AD PRN IV HYPOGLYCEMIA PROTOCOL 09/20/24 23:00 10/20/24 22:59 Famotidine (Pepcid 20mg Tab) 20 mg BID PO 09/21/24 09:00 09/20/24 22:56 DC Famotidine (Pepcid 20mg Tab) 20 mg BID PO 09/21/24 09:00 10/21/24 08:59 09/21/24 08:49 20 MG Glucagon (Glucagon 1mg Kit) 1 mg AD PRN IM HYPOGLYCEMIA PROTOCOL 09/20/24 23:00 10/20/24 22:59 Insulin Human Regular (humuLIN R 100 UNIT/ML 3ML) INSULIN SLIDING SCAL... ACHS SQ 09/21/24 07:30 10/21/24 07:29 Lactulose (Constulose 20gm/ 30ml Udcup) 20 gm BID PRN PO CONSTIPATION 09/20/24 23:00 10/20/24 22:59 09/21/24 08:51 20 GM Magnesium Sulfate 50 ml @ 0 mls/hr PROTOCOL PRN IV OTHER [SEE ORDER COMMENTS] 09/20/24 23:00 10/20/24 22:59 Ondansetron HCl (zoFRAN 4MG INJ) 4 mg Q6H PRN IV NAUSEA/VOMITING 09/20/24 23:00 10/20/24 22:59 Piperacillin Sod/ Tazobactam Sod 50 ml @ 12.5 mls/hr ZOSY8 IV 09/21/24 05:00 10/01/24 04:59 09/21/24 05:44 12.5 MLS/HR Piperacillin Sod/ Tazobactam Sod 50 ml @ 200 mls/hr STAT STAT IVPB 09/20/24 20:24 09/20/24 20:38 DC 09/20/24 21:04 200 MLS/HR Potassium Chloride 100 ml @ 100 mls/hr AD PRN IV POTASSIUM PROTOCOL 09/20/24 23:00 10/20/24 22:59 Potassium Chloride (K-Dur/Klor-Con 20meq) 20 meq AD PRN PO POTASSIUM PROTOCOL 09/20/24 23:00 10/20/24 22:59 09/21/24 08:49 20 MEQ Potassium Chloride (KCl 10% Elixir 20meq/15ml) 20 meq AD PRN PO POTASSIUM PROTOCOL 09/20/24 23:00 10/20/24 22:59 Sodium Chloride 1,000 ml @ 100 mls/hr Q10H IV 09/20/24 23:00 10/20/24 22:59 09/21/24 08:48 100 MLS/HR Vancomycin HCl 250 ml @ 125 mls/hr ONCE IV 09/20/24 23:00 09/20/24 23:12 DC Vancomycin HCl 250 ml @ 125 mls/hr Q12H IV 09/21/24 09:00 10/01/24 08:59 09/21/24 08:50 125 MLS/HR Vancomycin HCl (Vancomycin Protocol) 1 each AD IV 09/20/24 23:30 10/04/24 23:29 DIAGNOSTICS / RADIOLOGY: [address] [address] IMAGING REPORT Signed PATIENT: VERNON LAMBERT MR#: [id number] : 1975 SEX: M AGE: 49 LOCATION: EDH ORDER 28 STATUS: REG ER REPORT#: [id number] SERVICE 23 REASON: r/o osteomyelitis, swelling, cellulitis ORDERING PHYSICIAN: SEAMAN,REINA EMPLOYER RELATIONS REPRESENTATIVE PROCEDURE: FT 3VW RT - FOOT COMP 3+VWS RT Exam Type: FOOT COMP 3+VWS RT, ANKLE COMP 3VWS RT Clinical Information: r/o osteomyelitis, swelling, cellulitis Comparison: None Findings and impression: Soft tissue swelling of the ankle consistent with cellulitis or sprain. No fractures or dislocations. Calcaneal spurs. No bone destruction to suggest osteomyelitis DICTATED BY: SHARDA SAMUEL MD DATE: 09/20/242107 ELECTRONICALLY SIGNED BY: SHARDA SAMUEL MD DATE: 09/20/242111 [place] [address] [id number] IMAGING REPORT Signed PATIENT: VERNON LAMBERT MR#: [id number] : 1975 SEX: M AGE: 49 LOCATION: ED ORDER 51 STATUS: REG ER REPORT#: [id number] SERVICE 50 REASON: swelling ORDERING PHYSICIAN: REINA SEAMAN EMPLOYER RELATIONS REPRESENTATIVE PROCEDURE: [id number] - ANKLE COMP 3VWS RT Exam Type: FOOT COMP 3+VWS RT, ANKLE COMP 3VWS RT Clinical Information: r/o osteomyelitis, swelling, cellulitis Comparison: None Findings and impression: Soft tissue swelling of the ankle consistent with cellulitis or sprain. No fractures or dislocations. Calcaneal spurs. No bone destruction to suggest osteomyelitis DICTATED BY: SHARDA SAMUEL MD DATE: 09/20/242107 ELECTRONICALLY SIGNED BY: SHARDA SAMUEL MD DATE: 09/20/242111 [place] [address] [id number] IMAGING REPORT Signed PATIENT: VERNON LAMBERT MR#: [id number] : 1975 SEX: M AGE: 49 LOCATION: 3BH ORDER 6 STATUS: ADM IN REPORT#: [id number] SERVICE 4 REASON: Shortness of breath on exertion, leukocytosis ORDERING PHYSICIAN: VIRI JACKSON MD PROCEDURE: CXR1VW - CHEST 1VW Exam Type: CHEST 1VW Clinical Information: Shortness of breath on exertion, leukocytosis Comparison: None Findings: The lungs are clear of infiltrates. The heart is normal in size. The bony and soft tissue structures of the chest are unremarkable. Impression: Clear lungs. DICTATED BY: SHARDA SAMUEL MD DATE: 09/21/24944 ELECTRONICALLY SIGNED BY: SHARDA SAMUEL MD DATE: 09/21/24953 ASSESSMENT: Right ankle cellulitis POA Poor wound healing ulcer to right big toe, pending culture results POA Leukocytosis POA Elevated acute phase reactants, ESR, Procalcitonin POA Uncontrolled type 2 diabetes mellitus POA Acute normocytic normochromic anemia Hyponatremia, resolved POA Hypoalbuminemia POA Obesity POA Nicotine dependence POA Active alcohol drinker POA PLAN: The patient remains admitted on the medical surgical floor. Right ankle cellulitis POA Poor wound healing ulcer to right big toe POA Leukocytosis Elevated acute phase reactants, ESR, Procalcitonin POA * Continue with 0.9% Na Cl 100 cc/hour and re-evaluate tomorrow. * Continue with broad-spectrum antibiotics IV Zosyn and vancomycin. * Monitor for febrile episodes. * MRI right foot without contrast is pending. Follow up with aerobic and anaerobic cultures when the results are available. * Continue with Iodosorb daily for wound care per implementation project manager recommendations. * Follow up with Infectious Disease recommendations. Uncontrolled type 2 diabetes mellitus POA * Continue with insulin sliding scale AC & HS with hypoglycemia protocol * Continue with consistent carb diet. Nicotine dependence POA Active alcohol drinker POA * Counseled on smoking and alcohol use cessation DVT prophylaxis: Heparin 5000 IU q.12h GI prophylaxis: Famotidine 20 mg p.o. b.i.d. We will replace electrolytes as needed per protocol P.r.n. medications: * Zofran 4 mg q.6 for nausea/vomiting * [place] 5/325 2 tablets q.4 for severe pain (7-10) * [place] 5/325 tablet q.4 for moderate pain (4-6) * Lactulose 20 g b.i.d. for constipation * Tylenol 650 mg q.6 for fever and headaches. Patient does not take any medications at home. A.m. labs: CBC, BMP The plan was discussed with the patient. He verbalizes understanding. Further orders per hospitalization course. ATTESTATION BY PHYSICIAN I have seen and examined the patient. I reviewed the documentation, medical decision making, and treatment plan as noted by the resident provider above. I agree with the findings and plan of care. Nickolas Fraser MD, MANALI MD Sep 21, 2024 10:54
--- NOTE | 2024-09-21 11:14 | NUR ---
DCP: HOME Pt currently lives alone in his home. Pt states that he just moved to the [place] from [place] a month ago. Pt does not report any insecurities with food, mcc, and/or utilities. Pt does not have DME, home health, or provider services. Pt states that recently he has been needing some help from girlfriend in completing ADLs. Pt does not have a PCP however SW left him some community resources. At [place] pt will stay with girlfriend for a few days and then go back home. Addendum: 09/21/24 at 1117 by TROY CARRERA SS Amended: Links added.
[2024-09-21] MEDS: IODOSORB GEL 40GM TP SCH (12:00)
--- NOTE | 2024-09-21 13:18 | CONS ---
CONSULTATION NOTE Date of Service: Sep 21, 2024 Reason for Consultation: This 49 years old male was seen for consultation on cellulitis to the right ankle and ulceration today right big toe patient was seen in the past at the hospital was given antibiotics patient continues to works were his stay in that he have to stay in on his foot all the time. Patient has a history of diabetes Requesting Physician: Dr. Thao HISTORY OF PRESENT ILLNESS: As stated above REVIEW OF SYSTEMS CONSTITUTIONAL: Denies fever, chills, or fatigue. HEAD/FACE: No signs of trauma. EENT: Denies eye pain, blurred vision, double vision, or light sensitivity. RESPIRATORY: Denies shortness of breath, cough, wheezing CARDIOVASCULAR: Denies chest pain, palpitation, syncope GASTROINTESTINAL/ABDOMINAL: Denies abdominal pain, constipation, diarrhea, nausea or vomiting GENITOURINARY: Denies dysuria or hematuria. MUSCULOSKELETAL: Denies joint pain, tenderness, or trauma. INTEGUMENTARY: Open ulcer plantar great toe right foot cellulitis of the right ankle NEUROLOGICAL/PSYCH: Denies anxiety, depression, heat or cold intolerance. PAST MEDICAL HISTORY: Diabetes hypertension. PAST SURGICAL HISTORY: None PAST SOCIAL HISTORY: Denies any smoking drinking or using illicit drugs FAMILY HISTORY: Noncontributory Coded Allergies: No Known Allergies (Unverified Allergy, Unknown, 09/06/24) PHYSICAL EXAM EYES: Anicteric. Pupils equal and reactive. HENT: No oral thrush seen, moist Oral mucosa NECK: Supple, no JVD or thyromegaly. LUNGS: Good air entry. No rales, no rhonchi. CARDIOVASCULAR: S1, S2 regular. No murmur heard. ABDOMEN: Soft, non tender, bowel sounds present, no organomegaly CENTRAL NERVOUS SYSTEM: Awake, alert, oriented x 3. Peripheral polyneuropathy secondary to diabetes SKIN: Ulcer plantar aspect of the right hallux at the level of subcutaneous tissue cellulitis of the right ankle LYMPHATICS: No peripheral lymphadenopathy MUSCULOSKELETAL: No joint swelling, erythema or tenderness. EXTREMITIES: No cyanosis or clubbing BACK: No deformity, no pressure ulcer. GENITOURINARY: No dysuria or hematuria Vital Sign (Last 24 Hours) 09/21/24 09/21/24 02:35 11:54 Temp 99.1 Pulse 75 Resp 18 B/P (MAP) 125/72 Pulse Ox 95 O2 Delivery Room Air O2 Flow Rate 0 FiO2 21 Intake & Output (last 24hrs) 09/20/24 09/20/24 09/21/24 15:00 23:00 07:00 Output Total 750 ml Balance -750 ml LABS: Laboratory: Test 09/21/24 11:26 09/21/24 05:10 09/20/24 21:38 09/20/24 20:31 Range/Units Whole Blood Glucose 201 H 70-110 MG/DL White Blood Count 13.5 H 4.8-10.8 K/uL Red Blood Count 3.23 L 4.50-6.20 MIL/uL Hemoglobin 9.5 L 14.0-18.0 g/dL Hematocrit 28.1 L 42-54 % Mean Corpuscular Volume 87.0 79-99 fL Mean Corpuscular Hemoglobin 29.4 27.0-33.0 pg Mean Corpuscular Hemoglobin Concent 33.8 32.0-36.0 g/dL Red Cell Distribution Width 13.9 11.0-15.5 % Platelet Count 346 130-400 K/uL Mean Platelet Volume 9.9 7.5-10.5 fL Immature Granulocyte % (Auto) 0.7 0-1 % Neutrophils (%) (Auto) 79.1 H 40.0-77.0 % Lymphocytes (%) (Auto) 10.1 L 21.0-51.0 % Monocytes (%) (Auto) 9.4 3.0-13.0 % Eosinophils (%) (Auto) 0.3 0.0-8.0 % Basophils (%) (Auto) 0.4 0.0-5.0 % Neutrophils # (Auto) 10.7 H 1.8-7.7 K/uL Lymphocytes # (Auto) 1.4 1.0-4.8 K/uL Monocytes # (Auto) 1.3 H 0.1-1.0 K/uL Eosinophils # (Auto) 0.04 0.00-0.70 K/uL Basophils # (Auto) 0.05 0.00-0.20 K/uL Absolute Immature Granulocyte (auto 0.10 0-1 K/uL Nucleated Red Blood Cells 0.0 0.0-0.19 % Sodium Level 137 136-145 mmol/L Potassium Level 3.8 3.5-5.1 mmol/L Chloride Level 105 101-111 mmol/L Carbon Dioxide Level 21 21-32 mmol/L Blood Urea Nitrogen 10 7-18 mg/dL Creatinine 1.2 0.5-1.3 mg/dL Glomerular Filtration Rate Calc 75 >90 mL/min Random Glucose 138 H 70-105 mg/dL Hemoglobin A1c 7.6 H 4.0-6.0 % Estimated Average Glucose (eAG) 171 H 70-126 mg/dL Lactic Acid Level 1.0 0.8-2.5 mmol/L Total Calcium 8.0 L 8.5-10.1 mg/dL Magnesium Level 1.80 1.80-2.40 mg/dL Total Bilirubin 0.8 0.2-1.0 mg/dL Aspartate Amino Transf (AST/SGOT) 12 10-37 U/L Alanine Aminotransferase (ALT/SGPT) 22 12-78 U/L Alkaline Phosphatase 104 50-136 U/L Total Protein 6.5 6.0-8.3 g/dL Albumin 2.1 L 3.5-5.0 g/dL Procalcitonin 0.51 H 0.05-0.5 ng/mL Urine Color LIGHT-YELLOW YELLOW Urine Appearance CLEAR CLEAR Urine pH 6.0 5.0-8.0 Urine Specific [place] 1.014 1.001-1.031 Urine Protein 50 H NEGATIVE mg/dL Urine Glucose (UA) NEGATIVE NEGATIVE mg/dL Urine Ketones NEGATIVE NEGATIVE mg/dL Urine Occult Blood SMALL H NEGATIVE Urine Nitrate NEGATIVE NEGATIVE Urine Bilirubin NEGATIVE NEGATIVE mg/dL Urine Urobilinogen 4.0 H 0.2-1.0 mg/dL Urine Leukocyte Esterase NEGATIVE NEGATIVE Marshall/uL Urine RBC 0-1 0-1 /HPF Urine WBC 0-1 0-1 /HPF Urine Bacteria RARE None Seen /HPF White Cell Morphology Comment See comments Erythrocyte Sedimentation Rate > 150 H 0-15 MM/HR Total Creatine Kinase 103 21-232 U/L Troponin I High Sensitivity 25 4-75 ng/L DIAGNOSTICS / RADIOLOGY: X-rays negative for osteomyelitis or gas in the soft tissues. ASSESSMENT: Diabetic foot ulcer right hallux Cellulitis of the right ankle Diabetic foot infection. Diabetic polyneuropathy PLAN: Continue IV antibiotic therapy follow up cultures and sensitivity start Iodosorb daily for wound care and more we will monitor progress thank you. JARROD SMITH DPM Sep 21, 2024 13:18
[2024-09-21] MEDS: HEParin 5,000 UNIT VIAL SQ SCH (13:30)
--- NOTE | 2024-09-21 15:08 | NUR ---
[facility] Consult: Patient assessed by wound healing team. See wound assessment. Assessment and recommendations provided to primary nurse. Education provided. Wound care done. Addendum: 09/21/24 at 1544 by RILEY WEST RN RN/ Amended: Links added.
[2024-09-21] MEDS: acetaMINOPHEN 325 MG TAB PO PRN (16:26)
[2024-09-22] VITALS (22 sets, daily range): BP systolic 91–145; BP diastolic 45–77; PULSE 61–79; RESP 15–20; TEMP 97.5–101; O2SAT 92–96
--- NOTE | 2024-09-22 00:45 | PN ---
INFECTIOUS DISEASE FOLLOWUP NOTE DATE OF SERVICE: 09/21/2024 SUBJECTIVE: The patient is seen and examined at bedside. No fever or chills. No nausea or vomiting. right ankle, but I aspirated 10 mL of purulent fluid from the lateral right ankle. PHYSICAL EXAMINATION: VITAL SIGNS: Temperature 99.5. EYES: No icterus. Pupils equal and reactive. HENT: No oral thrush seen. Moist oral mucosa. NECK: Supple. No JVD. No thyromegaly. LUNGS: Good air entry. No rales. No rhonchi. CARDIOVASCULAR: S1 and S2, regular. No murmur heard. ABDOMEN: Full, soft, nontender. Bowel sounds are present. CENTRAL NERVOUS SYSTEM: Awake, alert and oriented x 3. No focal deficits. SKIN: No rashes, no itchiness. LYMPHATIC: Has right ankle lymphadenopathy. EXTREMITIES: Swelling involving the lateral aspect of the right ankle. also involvement of the lateral aspect of the right great toe. ASSESSMENT: A 49-year-old male with multiple problems, which include: * Possible right great toe osteomyelitis. * Right ankle cellulitis and abscess. * Diabetic foot ulcer. * Morbid obesity. * . PLAN: * Continue wound care. * Continue vancomycin. * Continue Zosyn. * Continue pain management. * Continue antidiabetic. * Followup cultures. TID: [id number] RECEIPT: [id number]
[2024-09-22 05:29] LABS: BASOPHILS # (AUTO) 0.07 K/uL (0.00-0.20); BASOPHILS % (AUTO) 0.6 % (0.0-5.0); EOSINOPHILS % (AUTO) 0.9 % (0.0-8.0); HEMATOCRIT 25.5 % (42-54); IMMATURE GRANULOCYTE ABSOLUTE 0.11 K/uL (0-1); LYMPHOCYTES # (AUTO) 1.7 K/uL (1.0-4.8); LYMPHOCYTES % (AUTO) 14.2 % (21.0-51.0); MEAN CORPUSCULAR HEMOGLOBIN 29.9 pg (27.0-33.0); MEAN CORPUSCULAR HGB CONC 34.9 g/dL (32.0-36.0); MEAN CORPUSCULAR VOLUME 85.6 fL (79-99); MONOCYTES # (AUTO) 1.3 K/uL (0.1-1.0); MONOCYTES % (AUTO) 11.3 % (3.0-13.0); NEUTROPHILS # (AUTO) 8.5 K/uL (1.8-7.7); NEUTROPHILS % (AUTO) 72.1 % (40.0-77.0); PLATELET COUNT (AUTO) 406 K/uL (130-400); RED BLOOD CELL COUNT(AUTO) 2.98 MIL/uL (4.50-6.20); WHITE BLOOD COUNT (AUTO) 11.7 K/uL (4.8-10.8)
[2024-09-22 05:51] LABS: POTASSIUM 3.8 mmol/L (3.5-5.1)
--- NOTE | 2024-09-22 09:13 | HMCIMG ---
MR FOOT RIGHT WO HISTORY: right foot cellulitis TECHNIQUE: Multiplanar multisequence MRI of the right mid/forefoot was performed without contrast. FINDINGS: Diffuse soft tissue swelling suggesting cellulitis/myositis. Study degraded by motion. Soft tissue ulcer seen in the first toe. Mild abnormal T1 and T2 signals in the distal phalanx of the first toe suggesting early osteomyelitis.. IMPRESSION: 1. Diffuse soft tissue swelling suggesting cellulitis/myositis. 2. Study degraded by motion. 3. Soft tissue ulcer seen in the first toe. 4. Mild abnormal T1 and T2 signals in the inferior distal phalanx of the first toe suggesting early osteomyelitis..
--- NOTE | 2024-09-22 11:08 | PN ---
PROGRESS NOTE Date of Service: Sep 22, 2024 Time of Service: 11:03 SUBJECTIVE: Follow up cellulitis and abscess ankle right s/p aspiration of ankle with pus discharge. MRI positive for osteomyelitis of the right hallux. REVIEW OF SYSTEMS CONSTITUTIONAL: Denies fever, chills, or fatigue. HEAD/FACE: No signs of trauma. EENT: Denies eye pain, blurred vision, double vision, or light sensitivity. RESPIRATORY: Denies shortness of breath, cough, wheezing CARDIOVASCULAR: Denies chest pain, palpitation, syncope GASTROINTESTINAL/ABDOMINAL: Denies abdominal pain, constipation, diarrhea, nausea or vomiting GENITOURINARY: Denies dysuria or hematuria. MUSCULOSKELETAL: Denies joint pain, tenderness, or trauma. INTEGUMENTARY: Open ulcer plantar great toe right foot cellulitis of the right ankle NEUROLOGICAL/PSYCH: Denies anxiety, depression, heat or cold intolerance. PHYSICAL EXAM EYES: Anicteric. Pupils equal and reactive. HENT: No oral thrush seen, moist Oral mucosa NECK: Supple, no JVD or thyromegaly. LUNGS: Good air entry. No rales, no rhonchi. CARDIOVASCULAR: S1, S2 regular. No murmur heard. ABDOMEN: Soft, non tender, bowel sounds present, no organomegaly CENTRAL NERVOUS SYSTEM: Awake, alert, oriented x 3. Peripheral polyneuropathy secondary to diabetes SKIN: Ulcer plantar aspect of the right hallux at the level of subcutaneous tissue cellulitis of the right ankle LYMPHATICS: No peripheral lymphadenopathy MUSCULOSKELETAL: No joint swelling, erythema or tenderness. EXTREMITIES: No cyanosis or clubbing BACK: No deformity, no pressure ulcer. GENITOURINARY: No dysuria or hematuria Vital Signs (last 8hr) Date Time Temp Pulse Resp B/P (MAP) Pulse Ox O2 Delivery O2 Flow Rate FiO2 09/22/24 07:48 98.2 67 18 135/77 96 Room Air 09/22/24 04:31 99.7 75 17 131/65 100 Room Air LABS: Laboratory: Test 09/22/24 07:50 09/22/24 05:37 09/22/24 04:53 09/21/24 05:10 Range/Units Vancomycin Level Trough 7.4 L 10.0-20.0 UG/ML Whole Blood Glucose 119 #H 70-110 MG/DL White Blood Count 11.7 H 4.8-10.8 K/uL Red Blood Count 2.98 L 4.50-6.20 MIL/uL Hemoglobin 8.9 L 14.0-18.0 g/dL Hematocrit 25.5 L 42-54 % Mean Corpuscular Volume 85.6 79-99 fL Mean Corpuscular Hemoglobin 29.9 27.0-33.0 pg Mean Corpuscular Hemoglobin Concent 34.9 32.0-36.0 g/dL Red Cell Distribution Width 14.0 11.0-15.5 % Platelet Count 406 H 130-400 K/uL Mean Platelet Volume 9.9 7.5-10.5 fL Immature Granulocyte % (Auto) 0.9 0-1 % Neutrophils (%) (Auto) 72.1 40.0-77.0 % Lymphocytes (%) (Auto) 14.2 L 21.0-51.0 % Monocytes (%) (Auto) 11.3 3.0-13.0 % Eosinophils (%) (Auto) 0.9 0.0-8.0 % Basophils (%) (Auto) 0.6 0.0-5.0 % Neutrophils # (Auto) 8.5 H 1.8-7.7 K/uL Lymphocytes # (Auto) 1.7 1.0-4.8 K/uL Monocytes # (Auto) 1.3 H 0.1-1.0 K/uL Eosinophils # (Auto) 0.10 0.00-0.70 K/uL Basophils # (Auto) 0.07 0.00-0.20 K/uL Absolute Immature Granulocyte (auto 0.11 0-1 K/uL Nucleated Red Blood Cells 0.0 0.0-0.19 % Sodium Level 137 136-145 mmol/L Potassium Level 3.8 3.5-5.1 mmol/L Chloride Level 104 101-111 mmol/L Carbon Dioxide Level 22 21-32 mmol/L Blood Urea Nitrogen 8 7-18 mg/dL Creatinine 1.0 0.5-1.3 mg/dL Glomerular Filtration Rate Calc 93 >90 mL/min Random Glucose 107 H 70-105 mg/dL Total Calcium 8.3 L 8.5-10.1 mg/dL Hemoglobin A1c 7.6 H 4.0-6.0 % Estimated Average Glucose (eAG) 171 H 70-126 mg/dL Lactic Acid Level 1.0 0.8-2.5 mmol/L Magnesium Level 1.80 1.80-2.40 mg/dL Total Bilirubin 0.8 0.2-1.0 mg/dL Aspartate Amino Transf (AST/SGOT) 12 10-37 U/L Alanine Aminotransferase (ALT/SGPT) 22 12-78 U/L Alkaline Phosphatase 104 50-136 U/L Total Protein 6.5 6.0-8.3 g/dL Albumin 2.1 L 3.5-5.0 g/dL Procalcitonin 0.51 H 0.05-0.5 ng/mL Test 09/20/24 21:38 09/20/24 20:31 Range/Units Urine Color LIGHT-YELLOW YELLOW Urine Appearance CLEAR CLEAR Urine pH 6.0 5.0-8.0 Urine Specific [place] 1.014 1.001-1.031 Urine Protein 50 H NEGATIVE mg/dL Urine Glucose (UA) NEGATIVE NEGATIVE mg/dL Urine Ketones NEGATIVE NEGATIVE mg/dL Urine Occult Blood SMALL H NEGATIVE Urine Nitrate NEGATIVE NEGATIVE Urine Bilirubin NEGATIVE NEGATIVE mg/dL Urine Urobilinogen 4.0 H 0.2-1.0 mg/dL Urine Leukocyte Esterase NEGATIVE NEGATIVE Marshall/uL Urine RBC 0-1 0-1 /HPF Urine WBC 0-1 0-1 /HPF Urine Bacteria RARE None Seen /HPF White Cell Morphology Comment See comments Erythrocyte Sedimentation Rate > 150 H 0-15 MM/HR Total Creatine Kinase 103 21-232 U/L Troponin I High Sensitivity 25 4-75 ng/L DIAGNOSTICS / RADIOLOGY: X-rays negative for osteomyelitis or gas in the soft tissues. ASSESSMENT: Diabetic foot ulcer right hallux Cellulitis of the right ankle Diabetic foot infection. Diabetic polyneuropathy Osteomyelitis hallux right abscess ankle right PLAN: Plan for I&D abscess , amputation of hallux was recommended patient does not want amputation Continue IV antibiotics and local wound care after I&D today. JARROD SMITH DPM Sep 22, 2024 11:08
--- NOTE | 2024-09-22 12:10 | PN ---
INFECTIOUS DISEASE PROGRESS NOTE Date of Service: Sep 22, 2024 SUBJECTIVE: This 49 year old male patient is being seen today at bedside. No fever or chills. No nausea or vomiting. Patient states to have discomfort to right lower extremity, redness, swelling and tenderness noted. Denies dysuria or hematuria. No distress. He continues with antibiotics. 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 no other issues or concerns, we continue to follow patient. No over night events reported by nurse. PHYSICAL EXAM EYES: Anicteric. Pupils equal and reactive. HENT: No oral thrush seen, moist Oral mucosa NECK: Supple, no JVD or thyromegaly. LUNGS: Good air entry. No rales, no rhonchi. CARDIOVASCULAR: S1, S2 regular. No murmur heard. ABDOMEN: Soft, non tender, bowel sounds present, no organomegaly CENTRAL NERVOUS SYSTEM: Awake, alert, oriented x 3. No focal deficits. SKIN: No rashes, no swelling. LYMPHATICS: No peripheral lymphadenopathy MUSCULOSKELETAL: No joint swelling, erythema or tenderness. EXTREMITIES: redness, tenderness and swelling to right lower extremity, dry dressing BACK: No deformity, no pressure ulcer. GENITOURINARY: No dysuria or hematuria Vital Sign (Last 12 Hours) 09/22/24 09/22/24 09/22/24 04:31 07:48 11:22 Temp 99.7 98.2 97.9 Pulse 75 67 61 Resp 17 18 18 B/P (MAP) 131/65 135/77 128/71 Pulse Ox 100 96 100 O2 Delivery Room Air Room Air Room Air Intake & Output (last 24hrs) 09/21/24 09/21/24 09/22/24 15:00 23:00 07:00 Intake Total 440 ml 720 ml Output Total 900 ml 900 ml 1500 ml Balance -460 ml -180 ml -1500 ml LABS: Laboratory: Test 09/22/24 11:06 09/22/24 07:50 09/22/24 04:53 09/21/24 05:10 Range/Units Whole Blood Glucose 160 H 70-110 MG/DL Vancomycin Level Trough 7.4 L 10.0-20.0 UG/ML White Blood Count 11.7 H 4.8-10.8 K/uL Red Blood Count 2.98 L 4.50-6.20 MIL/uL Hemoglobin 8.9 L 14.0-18.0 g/dL Hematocrit 25.5 L 42-54 % Mean Corpuscular Volume 85.6 79-99 fL Mean Corpuscular Hemoglobin 29.9 27.0-33.0 pg Mean Corpuscular Hemoglobin Concent 34.9 32.0-36.0 g/dL Red Cell Distribution Width 14.0 11.0-15.5 % Platelet Count 406 H 130-400 K/uL Mean Platelet Volume 9.9 7.5-10.5 fL Immature Granulocyte % (Auto) 0.9 0-1 % Neutrophils (%) (Auto) 72.1 40.0-77.0 % Lymphocytes (%) (Auto) 14.2 L 21.0-51.0 % Monocytes (%) (Auto) 11.3 3.0-13.0 % Eosinophils (%) (Auto) 0.9 0.0-8.0 % Basophils (%) (Auto) 0.6 0.0-5.0 % Neutrophils # (Auto) 8.5 H 1.8-7.7 K/uL Lymphocytes # (Auto) 1.7 1.0-4.8 K/uL Monocytes # (Auto) 1.3 H 0.1-1.0 K/uL Eosinophils # (Auto) 0.10 0.00-0.70 K/uL Basophils # (Auto) 0.07 0.00-0.20 K/uL Absolute Immature Granulocyte (auto 0.11 0-1 K/uL Nucleated Red Blood Cells 0.0 0.0-0.19 % Sodium Level 137 136-145 mmol/L Potassium Level 3.8 3.5-5.1 mmol/L Chloride Level 104 101-111 mmol/L Carbon Dioxide Level 22 21-32 mmol/L Blood Urea Nitrogen 8 7-18 mg/dL Creatinine 1.0 0.5-1.3 mg/dL Glomerular Filtration Rate Calc 93 >90 mL/min Random Glucose 107 H 70-105 mg/dL Total Calcium 8.3 L 8.5-10.1 mg/dL Hemoglobin A1c 7.6 H 4.0-6.0 % Estimated Average Glucose (eAG) 171 H 70-126 mg/dL Lactic Acid Level 1.0 0.8-2.5 mmol/L Magnesium Level 1.80 1.80-2.40 mg/dL Total Bilirubin 0.8 0.2-1.0 mg/dL Aspartate Amino Transf (AST/SGOT) 12 10-37 U/L Alanine Aminotransferase (ALT/SGPT) 22 12-78 U/L Alkaline Phosphatase 104 50-136 U/L Total Protein 6.5 6.0-8.3 g/dL Albumin 2.1 L 3.5-5.0 g/dL Procalcitonin 0.51 H 0.05-0.5 ng/mL Test 09/20/24 21:38 09/20/24 20:31 Range/Units Urine Color LIGHT-YELLOW YELLOW Urine Appearance CLEAR CLEAR Urine pH 6.0 5.0-8.0 Urine Specific [place] 1.014 1.001-1.031 Urine Protein 50 H NEGATIVE mg/dL Urine Glucose (UA) NEGATIVE NEGATIVE mg/dL Urine Ketones NEGATIVE NEGATIVE mg/dL Urine Occult Blood SMALL H NEGATIVE Urine Nitrate NEGATIVE NEGATIVE Urine Bilirubin NEGATIVE NEGATIVE mg/dL Urine Urobilinogen 4.0 H 0.2-1.0 mg/dL Urine Leukocyte Esterase NEGATIVE NEGATIVE Marshall/uL Urine RBC 0-1 0-1 /HPF Urine WBC 0-1 0-1 /HPF Urine Bacteria RARE None Seen /HPF White Cell Morphology Comment See comments Erythrocyte Sedimentation Rate > 150 H 0-15 MM/HR Total Creatine Kinase 103 21-232 U/L Troponin I High Sensitivity 25 4-75 ng/L ASSESSMENT: A 49-year-old male with multiple problems, which include: * possible right great toe osteomyelitis. * Right ankle cellulitis and abscess. * Diabetic foot ulcer. * Morbid obesity. PLAN: * Continue wound care. * Continue vancomycin. * Continue Zosyn. * Continue pain management. * Continue antidiabetic. * Followup cultures. * pending possible I&D to right ankle * continue pain management This case has been discussed with my supervising physician Dr. Ny. DEBORAH [facility] Sep 22, 2024 12:10
--- NOTE | 2024-09-22 13:12 | PN ---
[facility] PROGRESS NOTE Date of Service: Sep 22, 2024 Time of Service: 13:11 SUBJECTIVE: The patient is a 49-year-old male with a past medical history of type 2 diabetes mellitus presented to the emergency department with swelling, redness, and pain in his right ankle. Additionally, he has had an ulcer on his right big toe for approximately nine months. The patient was seen at this facility on September 06 and prescribed antibiotics; however, he did not complete the course. While the pain slightly improved, the swelling worsened and extended further into the right ankle. In the emergency department, the patient was febrile, with a temperature of 10 0.9F. Laboratory results showed a white blood cell count of 12.8, an ESR greater than 150, sodium levels of 131, and glucose levels of 198. An X-ray of the right foot and ankle indicated soft tissue swelling consistent with cellulitis, but no evidence of bony destruction or osteomyelitis was found. The patient received fluid resuscitation and was started on vancomycin and Zosyn. He was admitted for further management. 09/21/24: The patient was examined at bedside today. He had a fever of 102F at 4:00 a.m. but was otherwise normotensive and breathing room air. He is complaining of swelling and pain in his right foot, which is very sensitive and extremely tender to the touch. The patient is a chronic smoker, consuming one pack of cigarettes every two days for the past 33 years, and he does not have an established primary care provider. 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 He denies any vomiting, abdominal pain, dizziness, or other complaints. Laboratory results show that his white blood cell count has increased to 13.5 from 12.8, with neutrophils at 79.1%. His hemoglobin is at 9.5 g/dL, and hematocrit is at 28.1%. Kidney function tests are normal, blood sugar is 140 mg/dL, and a procalcitonin level is 0.51. We will continue treatment with 0.9% NaCl at 100 cc/hour, Zosyn, and vancomycin. An MRI of foot without contrast is pending. Podiatry recommendations are available, Iodosorb daily for wound care. The 10 mL fluid over foot swelling was aspirated, which was sent for analysis by the Infectious Disease provider. Wound cultures, both aerobic and anaerobic, are pending. Further assessment and planning will be discussed below. 09/22/24 patient was seen and examined at bedside. Case discussed with RN and family by the bedside. He was still having a fever as high as 102 await podiatry intervention. REVIEW OF SYSTEMS CONSTITUTIONAL: Complaints of fever, no chills, or night sweats. No unintentional weight loss reported. NEUROLOGICAL: Denies headache, amaurosis fugax, motor weakness, sensory deficit, vertigo/spinning sensation, gait abnormalities, or tremors. ENT: No hearing loss, otalgia, otorrhea, rhinitis, rhinorrhea, hoarseness, or sore throat. CARDIOVASCULAR: Denies any exertional angina, dyspnea on exertion, orthopnea, paroxysmal nocturnal dyspnea, palpitations, life-threatening arrhythmias, claudication. PULMONARY: Denies any shortness of breath, cough, phlegm/sputum, hemoptysis, pleuritic chest pain. SLEEP: Denies morning headaches, daytime somnolence or napping. Denies difficulty falling asleep, staying asleep, waking from sleep. Denies knowledge of snoring. GASTROINTESTINAL: Denies any type of dysphagia to either liquids or solids. Denies nausea, vomiting, pyrosis, early satiety, abdominal pain, diarrhea, constipation, or changes in stool consistency or caliber. Denies coffee-ground emesis, hematemesis, hematochezia, or melanotic stools. GENITOURINARY: Denies frequency, urgency, nocturia, hematuria or incontinence (Storage/Irritative symptoms.) Low urinary stream, straining to void, urinary intermittency or hesitancy, splitting of the voiding stream, terminal dribbling. ENDOCRINOLOGIC: Denies polyuria, polydipsia, polyphagia or heat/cold intolerances. HEMATOLOGIC: Denies thrombophilia/previous clots, or coagulopathy/bleeding disorders. ONCOLOGIC: Denies personal history of malignancy. DERMATOLOGIC: Complaints of right ankle and foot swelling pain, ulcer over right great toe Denies rashes or pruritus. PSYCHIATRIC: Denies any suicidal or homicidal ideation. Denies hallucinations. PHYSICAL EXAM GENERAL APPEARANCE: The patient is awake, alert, and oriented, in no acute car diopulmonary distress. NEUROLOGICAL: Cranial nerves II-XII grossly intact. Motor is 5/5 in bilateral upper and lower extremities proximal to distal. No sensory deficits. HEENT: Face is symmetric. Pupils are equal and reactive. Extraocular movements are intact. NECK: Supple. No JVD. No thyromegaly. No submental, submandibular, pre- /postauricular, occipital or supraclavicular lymphadenopathy. CHEST: Normal chest expansion. No Telemetry. LUNGS: Absence of any rales, rhonchi or any wheezing. CARDIOVASCULAR: Regular. S1 and S2 normal. No appreciable rubs, murmurs or gallops. ABDOMEN: Soft, nontender, and nondistended. There is no rebound, voluntary guarding, or rigidity. : Deferred. No Newman. EXTREMITIES: Right foot swelling, redness and tenderness. Rashes, pruritus SKIN: Poor healing wound ulcer to right big toe Vital Signs (last 8hr) Date Time Temp Pulse Resp B/P (MAP) Pulse Ox O2 Delivery O2 Flow Rate FiO2 09/22/24 11:22 97.9 61 18 128/71 100 Room Air 09/22/24 07:48 98.2 67 18 135/77 96 Room Air LABS: Laboratory: Test 09/22/24 11:06 09/22/24 07:50 09/22/24 04:53 09/21/24 05:10 Range/Units Whole Blood Glucose 160 H 70-110 MG/DL Vancomycin Level Trough 7.4 L 10.0-20.0 UG/ML White Blood Count 11.7 H 4.8-10.8 K/uL Red Blood Count 2.98 L 4.50-6.20 MIL/uL Hemoglobin 8.9 L 14.0-18.0 g/dL Hematocrit 25.5 L 42-54 % Mean Corpuscular Volume 85.6 79-99 fL Mean Corpuscular Hemoglobin 29.9 27.0-33.0 pg Mean Corpuscular Hemoglobin Concent 34.9 32.0-36.0 g/dL Red Cell Distribution Width 14.0 11.0-15.5 % Platelet Count 406 H 130-400 K/uL Mean Platelet Volume 9.9 7.5-10.5 fL Immature Granulocyte % (Auto) 0.9 0-1 % Neutrophils (%) (Auto) 72.1 40.0-77.0 % Lymphocytes (%) (Auto) 14.2 L 21.0-51.0 % Monocytes (%) (Auto) 11.3 3.0-13.0 % Eosinophils (%) (Auto) 0.9 0.0-8.0 % Basophils (%) (Auto) 0.6 0.0-5.0 % Neutrophils # (Auto) 8.5 H 1.8-7.7 K/uL Lymphocytes # (Auto) 1.7 1.0-4.8 K/uL Monocytes # (Auto) 1.3 H 0.1-1.0 K/uL Eosinophils # (Auto) 0.10 0.00-0.70 K/uL Basophils # (Auto) 0.07 0.00-0.20 K/uL Absolute Immature Granulocyte (auto 0.11 0-1 K/uL Nucleated Red Blood Cells 0.0 0.0-0.19 % Sodium Level 137 136-145 mmol/L Potassium Level 3.8 3.5-5.1 mmol/L Chloride Level 104 101-111 mmol/L Carbon Dioxide Level 22 21-32 mmol/L Blood Urea Nitrogen 8 7-18 mg/dL Creatinine 1.0 0.5-1.3 mg/dL Glomerular Filtration Rate Calc 93 >90 mL/min Random Glucose 107 H 70-105 mg/dL Total Calcium 8.3 L 8.5-10.1 mg/dL Hemoglobin A1c 7.6 H 4.0-6.0 % Estimated Average Glucose (eAG) 171 H 70-126 mg/dL Lactic Acid Level 1.0 0.8-2.5 mmol/L Magnesium Level 1.80 1.80-2.40 mg/dL Total Bilirubin 0.8 0.2-1.0 mg/dL Aspartate Amino Transf (AST/SGOT) 12 10-37 U/L Alanine Aminotransferase (ALT/SGPT) 22 12-78 U/L Alkaline Phosphatase 104 50-136 U/L Total Protein 6.5 6.0-8.3 g/dL Albumin 2.1 L 3.5-5.0 g/dL Procalcitonin 0.51 H 0.05-0.5 ng/mL Test 09/20/24 21:38 09/20/24 20:31 Range/Units Urine Color LIGHT-YELLOW YELLOW Urine Appearance CLEAR CLEAR Urine pH 6.0 5.0-8.0 Urine Specific [place] 1.014 1.001-1.031 Urine Protein 50 H NEGATIVE mg/dL Urine Glucose (UA) NEGATIVE NEGATIVE mg/dL Urine Ketones NEGATIVE NEGATIVE mg/dL Urine Occult Blood SMALL H NEGATIVE Urine Nitrate NEGATIVE NEGATIVE Urine Bilirubin NEGATIVE NEGATIVE mg/dL Urine Urobilinogen 4.0 H 0.2-1.0 mg/dL Urine Leukocyte Esterase NEGATIVE NEGATIVE Marshall/uL Urine RBC 0-1 0-1 /HPF Urine WBC 0-1 0-1 /HPF Urine Bacteria RARE None Seen /HPF White Cell Morphology Comment See comments Erythrocyte Sedimentation Rate > 150 H 0-15 MM/HR Total Creatine Kinase 103 21-232 U/L Troponin I High Sensitivity 25 4-75 ng/L Current Medications Medications (Trade) Dose Ordered Sig/Jennifer Route PRN Reason Start Time Stop Time Status Last Admin Dose Admin Acetaminophen (TYLenol 325MG TAB) 650 mg Q6H PRN PO FEVER/HEADACHE 09/21/24 06:30 10/21/24 06:29 09/21/24 16:26 650 MG Acetaminophen/ Hydrocodone Bitart (NORco 5/325MG) 1 tab Q4H PRN PO MODERATE PAIN (4-6) 09/20/24 23:00 09/25/24 22:59 09/21/24 08:50 1 TAB Acetaminophen/ Hydrocodone Bitart (NORco 5/325MG) 2 tab Q4H PRN PO SEVERE PAIN (7-10) 09/20/24 23:00 09/25/24 22:59 09/22/24 06:05 2 TAB Cadexomer Iodine (Iodosorb Gel 40gm) 1 APPL DAILY TP 09/21/24 12:00 10/21/24 11:59 09/22/24 08:07 1 APPL Dextrose (D50w) 50 ml AD PRN IV HYPOGLYCEMIA PROTOCOL 09/20/24 23:00 10/20/24 22:59 Famotidine (Pepcid 20mg Tab) 20 mg BID PO 09/21/24 09:00 09/20/24 22:56 DC Famotidine (Pepcid 20mg Tab) 20 mg BID PO 09/21/24 09:00 10/21/24 08:59 09/22/24 08:07 20 MG Glucagon (Glucagon 1mg Kit) 1 mg AD PRN IM HYPOGLYCEMIA PROTOCOL 09/20/24 23:00 10/20/24 22:59 Heparin Sodium (Porcine) (HEParin 5,000 UNIT VIAL) 5,000 unit Q12H SQ 09/21/24 12:30 10/21/24 12:29 09/22/24 02:09 5,000 UNIT Insulin Human Regular (humuLIN R 100 UNIT/ML 3ML) INSULIN SLIDING SCAL... ACHS SQ 09/21/24 07:30 10/21/24 07:29 09/21/24 22:00 4 UNIT Lactulose (Constulose 20gm/ 30ml Udcup) 20 gm BID PRN PO CONSTIPATION 09/20/24 23:00 10/20/24 22:59 09/21/24 08:51 20 GM Magnesium Sulfate 50 ml @ 0 mls/hr PROTOCOL PRN IV OTHER [SEE ORDER COMMENTS] 09/20/24 23:00 10/20/24 22:59 Ondansetron HCl (zoFRAN 4MG INJ) 4 mg Q6H PRN IV NAUSEA/VOMITING 09/20/24 23:00 10/20/24 22:59 Piperacillin Sod/ Tazobactam Sod 50 ml @ 12.5 mls/hr ZOSY8 IV 09/21/24 05:00 10/01/24 04:59 09/22/24 12:11 12.5 MLS/HR Piperacillin Sod/ Tazobactam Sod 50 ml @ 200 mls/hr STAT STAT IVPB 09/20/24 20:24 09/20/24 20:38 DC 09/20/24 21:04 200 MLS/HR Potassium Chloride 100 ml @ 100 mls/hr AD PRN IV POTASSIUM PROTOCOL 09/20/24 23:00 10/20/24 22:59 Potassium Chloride (K-Dur/Klor-Con 20meq) 20 meq AD PRN PO POTASSIUM PROTOCOL 09/20/24 23:00 10/20/24 22:59 09/22/24 08:07 20 MEQ Potassium Chloride (KCl 10% Elixir 20meq/15ml) 20 meq AD PRN PO POTASSIUM PROTOCOL 09/20/24 23:00 10/20/24 22:59 Sodium Chloride 1,000 ml @ 100 mls/hr Q10H IV 09/20/24 23:00 10/20/24 22:59 09/22/24 05:58 100 MLS/HR Vancomycin HCl 250 ml @ 125 mls/hr ONCE IV 09/20/24 23:00 09/20/24 23:12 DC Vancomycin HCl 250 ml @ 125 mls/hr Q12H IV 09/21/24 09:00 10/01/24 08:59 09/22/24 08:06 125 MLS/HR Vancomycin HCl (Vancomycin Protocol) 1 each AD IV 09/20/24 23:30 10/04/24 23:29 DIAGNOSTICS / RADIOLOGY: [ ] ASSESSMENT: Right ankle cellulitis POA Poor wound healing ulcer to right big toe, pending culture results POA Leukocytosis POA Elevated acute phase reactants, ESR, Procalcitonin POA Uncontrolled type 2 diabetes mellitus POA Acute normocytic normochromic anemia Hyponatremia, resolved POA Hypoalbuminemia POA Obesity POA Nicotine dependence POA Active alcohol drinker POA PLAN: The patient remains admitted on the medical surgical floor. Right ankle cellulitis POA Poor wound healing ulcer to right big toe POA Leukocytosis Elevated acute phase reactants, ESR, Procalcitonin POA * Continue with 0.9% Na Cl 100 cc/hour and re-evaluate tomorrow. * Continue with broad-spectrum antibiotics IV Zosyn and vancomycin. * Monitor for febrile episodes. * MRI right foot without contrast is pending. Follow up with aerobic and anaerobic cultures when the results are available. 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 * Follow up with Infectious Disease recommendations. Uncontrolled type 2 diabetes mellitus POA * Continue with insulin sliding scale AC & HS with hypoglycemia protocol * Continue with consistent carb diet. Nicotine dependence POA Active alcohol drinker POA * Counseled on smoking and alcohol use cessation DVT prophylaxis: Heparin 5000 IU q.12h GI prophylaxis: Famotidine 20 mg p.o. b.i.d. We will replace electrolytes as needed per protocol P.r.n. medications: * Zofran 4 mg q.6 for nausea/vomiting * [place] 5/325 2 tablets q.4 for severe pain (7-10) * [place] 5/325 tablet q.4 for moderate pain (4-6) * Lactulose 20 g b.i.d. for constipation * Tylenol 650 mg q.6 for fever and headaches. Patient does not take any medications at home. A.m. labs: CBC, BMP The plan was discussed with the patient. He verbalizes understanding. Further orders per hospitalization course. RUSS MCCOY MD Sep 22, 2024 13:12
[2024-09-22] MEDS: hydroMORPHone 0.5 MG SYG (0.5MG/0.5ML) IVP PRN (15:18)
[2024-09-22] MEDS ORDERED: proPOFol 10 MG/ML 20ML VIAL IV ONE ×3 (17:11→18:21)
[2024-09-22] MEDS ORDERED: FENTanyl CITRate PF 50 MCG/1 ML 2ML VIAL ONE ×2 (17:11→18:06)
[2024-09-22] MEDS ORDERED: ondanSETRON 4MG INJ ONE ×2 (17:11→18:09)
[2024-09-22] MEDS ORDERED: BUPIvacaine/PF 0.5% 30ML VIAL ONE (18:07)
[2024-09-22] MEDS ORDERED: MIDAZOLAM HCL 1 MG/ML 2ML VIAL ONE (18:07)
[2024-09-22] MEDS ORDERED: LIDOCAINE HCL 1% 20 ML VIAL ONE (18:07)
[2024-09-22] MEDS ORDERED: ketaMINE 50MG/ML SYRINGE 50 MG/ML DISP.SYRIN ONE (18:08)
[2024-09-22] MEDS ORDERED: rocuRONium bROMide 10MG/1ML 5ML VL ONE (18:22)
--- NOTE | 2024-09-22 18:51 | OP ---
Operative Note: DATE OF PROCEDURE: 09/22/24 SURGEON: JARROD SMITH DPM NON DESTRUCTIVE EVALUATION MANAGER: OR Tech ANESTHESIA: General with postoperative popliteal block ANESTHESIOLOGIST/CHARTERED ACCOUNTANT: Otto Brumfield CRNA PREOPERATIVE DIAGNOSIS: Right ankle abscess POSTOPERATIVE DIAGNOSIS: Right ankle abscess to joint level septic joint SYNOPSIS: Patient admitted through the ER with ulceration to the plantar aspect of the right foot and cellulitis to the right ankle aspiration of the right ankle was positive for abscess at this time was taken to the OR for incision and drainage of this abscess this abscess was noted to be into the ankle joint. And today was drained and pulse lavage with packing was done. PROCEDURE: Incision and drainage abscess and septic joint right ankle ESTIMATED BLOOD LOSS: 10 cc INDICATIONS: Septic joint abscess right ankle DESCRIPTION OF PROCEDURE: The patient was brought into the operating room table placed in the supine position. At this time the right ankle and foot was prepped and draped in usual sterile fashion. At this moment then utilizing a 15 blade curvilinear incision was performed along posterior aspect of the lateral malleoli. This incision was carried down through subcutaneous tissue. At this time abscess formation was noted to be within the subcutaneous tissue. Utilizing blunt instrumentation further dissection was performed down to the level of the ankle lateral. Were the abscess was continued lateral and dorsally. And into the joint capsule at this time. Drainage was performed at this time of this abscess and utilizing pulse lavage the area was irrigated with 1 L of normal saline. The wound was packed at this time with iodoform packing 4x4s and Kerlix. Continue IV antibiotics. Cultures and sensitivity were taken during this operation. And were sent for aerobic anaerobic and Gram stain. At this time we will continue with local wound care IV antibiotics daily. With wound packing. Patient tolerated procedure and anesthesia well was sent to recovery room with vital signs stable. JARROD SMITH DPM Sep 22, 2024 18:51
[2024-09-23] VITALS (10 sets, daily range): BP systolic 105–158; BP diastolic 51–72; PULSE 62–78; RESP 18–20; TEMP 98–98.4; O2SAT 99–100
--- NOTE | 2024-09-23 12:37 | PN ---
[facility] PROGRESS NOTE Date of Service: Sep 23, 2024 Time of Service: 12:37 SUBJECTIVE: The patient is a 49-year-old male with a past medical history of type 2 diabetes mellitus presented to the emergency department with swelling, redness, and pain in his right ankle. Additionally, he has had an ulcer on his right big toe for approximately nine months. The patient was seen at this facility on September 06 and prescribed antibiotics; however, he did not complete the course. While the pain slightly improved, the swelling worsened and extended further into the right ankle. In the emergency department, the patient was febrile, with a temperature of 10 0.9F. Laboratory results showed a white blood cell count of 12.8, an ESR greater than 150, sodium levels of 131, and glucose levels of 198. An X-ray of the right foot and ankle indicated soft tissue swelling consistent with cellulitis, but no evidence of bony destruction or osteomyelitis was found. The patient received fluid resuscitation and was started on vancomycin and Zosyn. He was admitted for further management. 09/21/24: The patient was examined at bedside today. He had a fever of 102F at 4:00 a.m. but was otherwise normotensive and breathing room air. He is complaining of swelling and pain in his right foot, which is very sensitive and extremely tender to the touch. The patient is a chronic smoker, consuming one pack of cigarettes every two days for the past 33 years, and he does not have an established primary care provider. 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 He denies any vomiting, abdominal pain, dizziness, or other complaints. Laboratory results show that his white blood cell count has increased to 13.5 from 12.8, with neutrophils at 79.1%. His hemoglobin is at 9.5 g/dL, and hematocrit is at 28.1%. Kidney function tests are normal, blood sugar is 140 mg/dL, and a procalcitonin level is 0.51. We will continue treatment with 0.9% NaCl at 100 cc/hour, Zosyn, and vancomycin. An MRI of foot without contrast is pending. Podiatry recommendations are available, Iodosorb daily for wound care. The 10 mL fluid over foot swelling was aspirated, which was sent for analysis by the Infectious Disease provider. Wound cultures, both aerobic and anaerobic, are pending. Further assessment and planning will be discussed below. 09/22/24 patient was seen and examined at bedside. Case discussed with RN and family by the bedside. He was still having a fever as high as 102 await podiatry intervention. 09/23/24: The patient was examined at the bedside today. He underwent incision and drainage yesterday by Dr. Lemos due to an abscess in the right ankle that reached the joint level, resulting in a septic joint. The procedure was completed without any complications. Recommendations include continuing local wound care and administering IV antibiotics daily along with a wound dressing. According to the nurse, the packing was completely soaked with pus, indicating that it is actively draining. An MRI revealed mild abnormal T1 and T2 signals in the left inferior distal phalanx of the first toe, suggesting early osteomyelitis. Dr. Lemos recommended amputation of the hallux; however, the patient prefers to avoid amputation and pursue a trial of antibiotics instead. He has been afebrile for over 24 hours, and his vital signs are stable. He reports slight improvement in his right ankle pain and denies any additional complaints or concerns. Laboratory results show a decrease in white blood cell count from 13.5 to 11.7, with hemoglobin at 8.9 and hematocrit at 25.5. Blood sugar levels have significantly improved, currently at 124, down from 198. Cultures have showed coagulase negative Staphylococcus, patient continues to receive vancomycin and Zosyn. He was told that the preoperative EKG was abnormal, and we will repeat the EKG today. We will continue with IV antibiotics and fluids. Follow up with Podiatry and adhere to Infectious Disease recommendations. Further assessment and planning are discussed below. REVIEW OF SYSTEMS CONSTITUTIONAL: No fever, chills, or night sweats. No unintentional weight loss reported. NEUROLOGICAL: Denies headache, amaurosis fugax, motor weakness, sensory deficit, vertigo/spinning sensation, gait abnormalities, or tremors. ENT: No hearing loss, otalgia, otorrhea, rhinitis, rhinorrhea, hoarseness, or sore throat. CARDIOVASCULAR: Denies any exertional angina, dyspnea on exertion, orthopnea, paroxysmal nocturnal dyspnea, palpitations, life-threatening arrhythmias, claudication. PULMONARY: Denies any shortness of breath, cough, phlegm/sputum, hemoptysis, pleuritic chest pain. SLEEP: Denies morning headaches, daytime somnolence or napping. Denies difficulty falling asleep, staying asleep, waking from sleep. Denies knowledge of snoring. GASTROINTESTINAL: Denies any type of dysphagia to either liquids or solids. Denies nausea, vomiting, pyrosis, early satiety, abdominal pain, diarrhea, constipation, or changes in stool consistency or caliber. Denies coffee-ground emesis, hematemesis, hematochezia, or melanotic stools. GENITOURINARY: Denies frequency, urgency, nocturia, hematuria or incontinence (Storage/Irritative symptoms.) Low urinary stream, straining to void, urinary intermittency or hesitancy, splitting of the voiding stream, terminal dribbling. ENDOCRINOLOGIC: Denies polyuria, polydipsia, polyphagia or heat/cold intolerances. HEMATOLOGIC: Denies thrombophilia/previous clots, or coagulopathy/bleeding disorders. ONCOLOGIC: Denies personal history of malignancy. DERMATOLOGIC: Complaints of right ankle and foot swelling pain, ulcer over right great toe Denies rashes or pruritus. PSYCHIATRIC: Denies any suicidal or homicidal ideation. Denies hallucinations. PHYSICAL EXAM GENERAL APPEARANCE: The patient is awake, alert, and oriented, in no acute cardiopulmonary distress. NEUROLOGICAL: Cranial nerves II-XII grossly intact. Motor is 5/5 in bilateral upper and lower extremities proximal to distal. No sensory deficits. HEENT: Face is symmetric. Pupils are equal and reactive. Extraocular movements are intact. NECK: Supple. No JVD. No thyromegaly. No submental, submandibular, pre- /postauricular, occipital or supraclavicular lymphadenopathy. CHEST: Normal chest expansion. No Telemetry. LUNGS: Absence of any rales, rhonchi or any wheezing. CARDIOVASCULAR: Regular. S1 and S2 normal. No appreciable rubs, murmurs or gallops. ABDOMEN: Soft, nontender, and nondistended. There is no rebound, voluntary guarding, or rigidity. : Deferred. No Newman. EXTREMITIES: Right foot swelling, redness and tenderness. Incision and drainage on the lateral portion of the right ankle, with packing in placed SKIN: Poor healing wound ulcer to right big toe Vital Signs (last 8hr) Date Time Temp Pulse Resp B/P (MAP) Pulse Ox O2 Delivery O2 Flow Rate FiO2 09/23/24 11:27 98.4 70 18 105/59 97 Room Air 09/23/24 08:00 99 Room Air* 0 21 09/23/24 07:55 98.4 65 18 158/65 99 Room Air LABS: Laboratory: Test 09/23/24 10:51 09/22/24 07:50 09/22/24 04:53 Range/Units Whole Blood Glucose 202 #H 70-110 MG/DL Vancomycin Level Trough 7.4 L 10.0-20.0 UG/ML White Blood Count 11.7 H 4.8-10.8 K/uL Red Blood Count 2.98 L 4.50-6.20 MIL/uL Hemoglobin 8.9 L 14.0-18.0 g/dL Hematocrit 25.5 L 42-54 % Mean Corpuscular Volume 85.6 79-99 fL Mean Corpuscular Hemoglobin 29.9 27.0-33.0 pg Mean Corpuscular Hemoglobin Concent 34.9 32.0-36.0 g/dL Red Cell Distribution Width 14.0 11.0-15.5 % Platelet Count 406 H 130-400 K/uL Mean Platelet Volume 9.9 7.5-10.5 fL Immature Granulocyte % (Auto) 0.9 0-1 % Neutrophils (%) (Auto) 72.1 40.0-77.0 % Lymphocytes (%) (Auto) 14.2 L 21.0-51.0 % Monocytes (%) (Auto) 11.3 3.0-13.0 % Eosinophils (%) (Auto) 0.9 0.0-8.0 % Basophils (%) (Auto) 0.6 0.0-5.0 % Neutrophils # (Auto) 8.5 H 1.8-7.7 K/uL Lymphocytes # (Auto) 1.7 1.0-4.8 K/uL Monocytes # (Auto) 1.3 H 0.1-1.0 K/uL Eosinophils # (Auto) 0.10 0.00-0.70 K/uL Basophils # (Auto) 0.07 0.00-0.20 K/uL Absolute Immature Granulocyte (auto 0.11 0-1 K/uL Nucleated Red Blood Cells 0.0 0.0-0.19 % Sodium Level 137 136-145 mmol/L Potassium Level 3.8 3.5-5.1 mmol/L Chloride Level 104 101-111 mmol/L Carbon Dioxide Level 22 21-32 mmol/L Blood Urea Nitrogen 8 7-18 mg/dL Creatinine 1.0 0.5-1.3 mg/dL Glomerular Filtration Rate Calc 93 >90 mL/min Random Glucose 107 H 70-105 mg/dL Total Calcium 8.3 L 8.5-10.1 mg/dL Current Medications Medications (Trade) Dose Ordered Sig/Jennfier Route PRN Reason Start Time Stop Time Status Last Admin Dose Admin Acetaminophen (TYLenol 325MG TAB) 650 mg Q6H PRN PO FEVER/HEADACHE 09/21/24 06:30 10/21/24 06:29 09/21/24 16:26 650 MG Acetaminophen/ Hydrocodone Bitart (NORco 5/325MG) 1 tab Q4H PRN PO MODERATE PAIN (4-6) 09/20/24 23:00 09/25/24 22:59 09/21/24 08:50 1 TAB Acetaminophen/ Hydrocodone Bitart (NORco 5/325MG) 2 tab Q4H PRN PO SEVERE PAIN (7-10) 09/20/24 23:00 09/25/24 22:59 09/23/24 12:11 2 TAB Cadexomer Iodine (Iodosorb Gel 40gm) 1 APPL DAILY TP 09/21/24 12:00 10/21/24 11:59 09/23/24 07:44 1 APPL Dextrose (D50w) 50 ml AD PRN IV HYPOGLYCEMIA PROTOCOL 09/20/24 23:00 10/20/24 22:59 Famotidine (Pepcid 20mg Tab) 20 mg BID PO 09/21/24 09:00 09/20/24 22:56 DC Famotidine (Pepcid 20mg Tab) 20 mg BID PO 09/21/24 09:00 10/21/24 08:59 09/23/24 07:43 20 MG Glucagon (Glucagon 1mg Kit) 1 mg AD PRN IM HYPOGLYCEMIA PROTOCOL 09/20/24 23:00 10/20/24 22:59 Heparin Sodium (Porcine) (HEParin 5,000 UNIT VIAL) 5,000 unit Q12H SQ 09/21/24 12:30 10/21/24 12:29 09/23/24 11:59 5,000 UNIT Hydromorphone HCl (DiLAUDid 0.5MG INJ) 0.5 mg Q6H PRN IVP SEVERE PAIN (7-10) 09/22/24 15:30 09/27/24 15:29 09/22/24 15:18 0.5 MG Insulin Human Regular (humuLIN R 100 UNIT/ML 3ML) INSULIN SLIDING SCAL... ACHS SQ 09/21/24 07:30 10/21/24 07:29 09/23/24 11:58 3 UNIT Lactulose (Constulose 20gm/ 30ml Udcup) 20 gm BID PRN PO CONSTIPATION 09/20/24 23:00 10/20/24 22:59 09/21/24 08:51 20 GM Magnesium Sulfate 50 ml @ 0 mls/hr PROTOCOL PRN IV OTHER [SEE ORDER COMMENTS] 09/20/24 23:00 10/20/24 22:59 Ondansetron HCl (zoFRAN 4MG INJ) 4 mg Q6H PRN IV NAUSEA/VOMITING 09/20/24 23:00 10/20/24 22:59 Piperacillin Sod/ Tazobactam Sod 50 ml @ 12.5 mls/hr ZOSY8 IV 09/21/24 05:00 10/01/24 04:59 09/23/24 12:01 12.5 MLS/HR Piperacillin Sod/ Tazobactam Sod 50 ml @ 200 mls/hr STAT STAT IVPB 09/20/24 20:24 09/20/24 20:38 DC 09/20/24 21:04 200 MLS/HR Potassium Chloride 100 ml @ 100 mls/hr AD PRN IV POTASSIUM PROTOCOL 09/20/24 23:00 10/20/24 22:59 Potassium Chloride (K-Dur/Klor-Con 20meq) 20 meq AD PRN PO POTASSIUM PROTOCOL 09/20/24 23:00 10/20/24 22:59 09/22/24 08:07 20 MEQ Potassium Chloride (KCl 10% Elixir 20meq/15ml) 20 meq AD PRN PO POTASSIUM PROTOCOL 09/20/24 23:00 10/20/24 22:59 Sodium Chloride 1,000 ml @ 100 mls/hr Q10H IV 09/20/24 23:00 10/20/24 22:59 09/22/24 05:58 100 MLS/HR Vancomycin HCl 250 ml @ 125 mls/hr ONCE IV 09/20/24 23:00 09/20/24 23:12 DC Vancomycin HCl 250 ml @ 125 mls/hr Q12H IV 09/21/24 09:00 10/01/24 08:59 09/23/24 07:43 125 MLS/HR Vancomycin HCl (Vancomycin Protocol) 1 each AD IV 09/20/24 23:30 10/04/24 23:29 DIAGNOSTICS / RADIOLOGY: [place] [id number] [place] [address] [id number] IMAGING REPORT Signed PATIENT: VERNON LAMBERT MR#: [id number] : 1975 SEX: M AGE: 49 LOCATION: 3BH ORDER 53 STATUS: ADM IN REPORT#: [id number] SERVICE 41 REASON: right foot cellulitis ORDERING PHYSICIAN: ISABEL AGEE PROCEDURE: FT RT WO - MR FOOT RIGHT WO MR FOOT RIGHT WO HISTORY: right foot cellulitis TECHNIQUE: Multiplanar multisequence MRI of the right mid/forefoot was performed without contrast. FINDINGS: Diffuse soft tissue swelling suggesting cellulitis/myositis. Study degraded by motion. Soft tissue ulcer seen in the first toe. Mild abnormal T1 and T2 signals in the distal phalanx of the first toe suggesting early osteomyelitis.. IMPRESSION: 1. Diffuse soft tissue swelling suggesting cellulitis/myositis. 2. Study degraded by motion. 3. Soft tissue ulcer seen in the first toe. 4. Mild abnormal T1 and T2 signals in the inferior distal phalanx of the first toe suggesting early osteomyelitis.. DICTATED BY: ORQUIDEA BERUMEN MD DATE: 09/22/24905 ELECTRONICALLY SIGNED BY: ORQUIDEA BERUMEN MD DATE: 09/22/24 0900 [facility] [address] [place] [address] IMAGING REPORT Signed PATIENT: VERNON LAMBERT MR#: [id number] : 1975 SEX: M AGE: 49 LOCATION: EDH ORDER 51 STATUS: REG ER REPORT#: [id number] SERVICE 50 REASON: swelling ORDERING PHYSICIAN: REINA SEAMAN TOOL GRINDING TECHNICIAN PROCEDURE: [id number] - ANKLE COMP 3VWS RT Exam Type: FOOT COMP 3+VWS RT, ANKLE COMP 3VWS RT Clinical Information: r/o osteomyelitis, swelling, cellulitis Comparison: None Findings and impression: Soft tissue swelling of the ankle consistent with cellulitis or sprain. No fractures or dislocations. Calcaneal spurs. No bone destruction to suggest osteomyelitis DICTATED BY: SHARDA SAMUEL MD DATE: 09/20/242107 ELECTRONICALLY SIGNED BY: SHARDA SAMUEL MD DATE: 09/20/242111 [address] [address] IMAGING REPORT Signed PATIENT: VERNON LAMBERT MR#: [id number] : 1975 SEX: M AGE: 49 LOCATION: ED ORDER 28 STATUS: REG ER REPORT#: [id number] SERVICE 23 REASON: r/o osteomyelitis, swelling, cellulitis ORDERING PHYSICIAN: REINA SEAMAN PROCEDURE: FT 3VW RT - FOOT COMP 3+VWS RT Exam Type: FOOT COMP 3+VWS RT, ANKLE COMP 3VWS RT Clinical Information: r/o osteomyelitis, swelling, cellulitis Comparison: None Findings and impression: Soft tissue swelling of the ankle consistent with cellulitis or sprain. No fractures or dislocations. Calcaneal spurs. No bone destruction to suggest osteomyelitis DICTATED BY: SHARDA SAMUEL MD DATE: 09/20/242107 ELECTRONICALLY SIGNED BY: SHARDA SAMUEL MD DATE: 09/20/242111 RUN DATE: 09/23/24 [facility] PAGE 1 RUN TIME: 53[id number] [place] [id number] [employer] CLIA # [id number] Fiberglasser: Nixon Sharma DO Specimen Report PATIENT: VERNON LAMBERT ACCT: [id number] LOC: [facility] U: [id number] AGE/SX: 49/M ROOM: [facility] RE09/20/[address]: TARAS CARR MD : 1975 BED: 1 DIS: STATUS: ADM IN TLOC: SPEC: [id number] SHEILA: 09/21/24 STATUS: RES REQ: [id number] RECD: 09/21/[address]: YANI MENDOZA MD SOURCE: LEG ENTR: 09/21/[address]: TARAS CARR MD SPDESC: ABSCESS SELF,REFERRAL JARROD LEMOS DPM ORDERED: ASTRID CULTURE, AEROBIC CULTURE COMMENTS: Has specimen been collected/obtained? Y Has specimen been collected/obtained? Y Has specimen been collected/obtained? Y Has specimen been collected/obtained? Y Has specimen been collected/obtained? Y Procedure Result Brad Date-Time ANAEROBIC CULTURE Preliminary 09/23/24 [facility] COLONY DESCRIPTION: REPORT 1: NO ANAEROBES AT 24-35 HOURS; STUDIES TO CONTINUE Test(s) performed by: [facility] [address] [place] [address] AEROBIC CULTURE Preliminary 09/23/24 [facility] COLONY DESCRIPTION: REPORT 1: 1+ SKIN JULIANNE ; STUDIES TO CONTINUE COAGULASE NEGATIVE STAPHYLOCOCCUS @ [facility] Test Performed at: [facility] [address] [place], [place] Medical Insulating Machine Operator: Sukh Alicea D.O. RUN DATE: 09/23/24 [facility] PAGE 1 RUN TIME: 53[id number] [address], [place] [address] Department of Laboratories CLIA # [id number] Fiberglasser: Nixon Sharma DO Specimen Report PATIENT: VERNON LAMBERT ACCT: [id number] LOC: [facility] U: [id number] AGE/SX: 49/M ROOM: 311 RE09/20/[address]: TARAS CARR MD : 1975 BED: 1 DIS: STATUS: ADM IN TLOC: SPEC: [id number] SHEILA: 09/21/24 STATUS: RES REQ: [id number] RECD: 09/21/[address]: REINA SEAMANP SOURCE: FOOT ENTR: 09/20/[address],REFERRAL ORDERED: ASTRID CULTURE, AEROBIC CULTURE - Procedure Result Brad Date-Time ANAEROBIC CULTURE Preliminary 09/23/24-1004 [facility] COL[facility]Y DESCRIPTION: REPORT 1: NO ANAEROBES AT 24-35 HOURS; STUDIES TO CONTINUE REPORT 2: NO ANAEROBES AT 48-59 HOURS; STUDIES TO CONTINUE Test(s) performed by: [facility] [address] [place] [address] AEROBIC CULTURE Preliminary 09/23/24-1004 [facility] COL[place] DESCRIPTION: REPORT 1: 1+ SKIN JULIANNE ; STUDIES TO CONTINUE COAGULASE NEGATIVE STAPHYLOCOCCUS REPORT 2: 1+ GRAM POSITIVE COCCI IN CLUSTERS STAPHYLOCOCCUS AUREUS SENSITIVITY TO FOLLOW @ [facility] Test Performed at: [facility] [address] [place], [place], [place] Medical Insulating Machine Operator: Sukh Alicea D.O. ASSESSMENT: Right ankle cellulitis and abscess, s/p incision and drainage on 09/22/2024 POA Poor wound healing ulcer to right big toe, +coagulase negative Staphylococcus aureus POA Possible right great toe osteomyelitis, per MRI 09/20/2024 Leukocytosis POA Elevated acute phase reactants, ESR, Procalcitonin POA Uncontrolled type 2 diabetes mellitus POA Acute normocytic normochromic anemia Hyponatremia, resolved POA Hypoalbuminemia POA Obesity POA Nicotine dependence POA Active alcohol drinker POA PLAN: The patient remains admitted on the medical surgical floor. Right ankle cellulitis and abscess, s/p incision and drainage on 09/22/2024 POA Poor wound healing ulcer to right big toe, +coagulase negative Staphylococcus aureus POA Leukocytosis POA Elevated acute phase reactants, ESR, Procalcitonin POA * Continue with 0.9% Na Cl 100 cc/hour and re-evaluate tomorrow. * Continue with broad-spectrum antibiotics IV Zosyn and vancomycin. * Monitor for febrile episodes. * Cultures showed coagulase negative Staphylococcus aureus, skin julianne, susceptibility results are pending. * Continue with Iodosorb daily for wound care per legal support assistant recommendations. * Follow up with Infectious Disease recommendations. Possible right great toe osteomyelitis, per MRI 09/20/2024 * The legal support assistant discussed that the patient will need an amputation of the hallux; however, the patient does not want to proceed with the amputation and instead wants to try a course of antibiotics. Uncontrolled type 2 diabetes mellitus POA * Continue with insulin sliding scale AC & HS with hypoglycemia protocol * Continue with consistent carb diet. Nicotine dependence POA Active alcohol drinker POA * Counseled on smoking and alcohol use cessation DVT prophylaxis: Heparin 5000 IU q.12h GI prophylaxis: Famotidine 20 mg p.o. b.i.d. We will replace electrolytes as needed per protocol P.r.n. medications: * Zofran 4 mg q.6 for nausea/vomiting * [place] 5/325 2 tablets q.4 for severe pain (7-10) * [place] 5/325 tablet q.4 for moderate pain (4-6) * Lactulose 20 g b.i.d. for constipation * Tylenol 650 mg q.6 for fever and headaches. Patient does not take any medications at home. A.m. labs: CBC, BMP The plan was discussed with the patient. He verbalizes understanding. Further orders per hospitalization course. ATTESTATION BY PHYSICIAN I have seen and examined the patient. I reviewed the documentation, medical decision making, and treatment plan as noted by the resident provider above. I agree with the findings and plan of care. Nickolas Fraser MD, MANALI MD Sep 23, 2024 12:37
[2024-09-24] VITALS (7 sets, daily range): BP systolic 117–138; BP diastolic 55–77; PULSE 60–73; RESP 16–48; TEMP 97.7–98.2; O2SAT 95–100
--- NOTE | 2024-09-24 04:43 | NUR ---
nurse note patient alert and oriented times 4. plan of care discussed with him and he verbalized understanding. patient voids on the urinal osmin clear urine. He has been having intermittent pain tonight on his right ankle relieved by dilaudid and narco. I changed his right foot dressing at this time. His right great toe has yellow slough. I placed ns, pat dry, iodosorb, 4x4 gauze, kerlix, tape. His right ankle is red and swollen around the incision side. The incision site has bright red tissue inside with minimal serosanguineous drainage. I cleaned it with ns, pat dry, packed it with iodoform packing, 4x4, kerlix, tape. The patient tolerated it well. He is calm in bed ready to go to sleep again. He has slept about 5 hours tonight. Call light within reach, bed alarm on, 2 side rails up. will continue to monitor patient.
[2024-09-24 05:34] LABS: BASOPHILS # (AUTO) 0.09 K/uL (0.00-0.20); BASOPHILS % (AUTO) 0.9 % (0.0-5.0); EOSINOPHILS # (AUTO) 0.17 K/uL (0.00-0.70); EOSINOPHILS % (AUTO) 1.7 % (0.0-8.0); IMMATURE GRANULOCYTE ABSOLUTE 0.12 K/uL (0-1); LYMPHOCYTES # (AUTO) 1.5 K/uL (1.0-4.8); LYMPHOCYTES % (AUTO) 15.6 % (21.0-51.0); MEAN CORPUSCULAR HEMOGLOBIN 29.3 pg (27.0-33.0); MEAN CORPUSCULAR HGB CONC 34.6 g/dL (32.0-36.0); MEAN CORPUSCULAR VOLUME 84.8 fL (79-99); MONOCYTES # (AUTO) 0.8 K/uL (0.1-1.0); MONOCYTES % (AUTO) 8.2 % (3.0-13.0); NEUTROPHILS # (AUTO) 7.1 K/uL (1.8-7.7); NEUTROPHILS % (AUTO) 72.4 % (40.0-77.0); PLATELET COUNT (AUTO) 446 K/uL (130-400); RED BLOOD CELL COUNT(AUTO) 2.83 MIL/uL (4.50-6.20); RED CELL DISTRIBUTION WIDTH 13.7 % (11.0-15.5); WHITE BLOOD COUNT (AUTO) 9.8 K/uL (4.8-10.8)
[2024-09-24 05:47] LABS: CREATININE 1.1 mg/dL (0.5-1.3); POTASSIUM 3.9 mmol/L (3.5-5.1)
--- NOTE | 2024-09-24 09:06 | PN ---
[facility] PROGRESS NOTE Date of Service: Sep 24, 2024 Time of Service: 09:06 SUBJECTIVE: The patient is a 49-year-old male with a past medical history of type 2 diabetes mellitus presented to the emergency department with swelling, redness, and pain in his right ankle. Additionally, he has had an ulcer on his right big toe for approximately nine months. The patient was seen at this facility on September 06 and prescribed antibiotics; however, he did not complete the course. While the pain slightly improved, the swelling worsened and extended further into the right ankle. In the emergency department, the patient was febrile, with a temperature of 10 0.9F. Laboratory results showed a white blood cell count of 12.8, an ESR greater than 150, sodium levels of 131, and glucose levels of 198. An X-ray of the right foot and ankle indicated soft tissue swelling consistent with cellulitis, but no evidence of bony destruction or osteomyelitis was found. The patient received fluid resuscitation and was started on vancomycin and Zosyn. He was admitted for further management. 09/21/24: The patient was examined at bedside today. He had a fever of 102F at 4:00 a.m. but was otherwise normotensive and breathing room air. He is complaining of swelling and pain in his right foot, which is very sensitive and extremely tender to the touch. The patient is a chronic smoker, consuming one pack of cigarettes every two days for the past 33 years, and he does not have an established primary care provider. 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 He denies any vomiting, abdominal pain, dizziness, or other complaints. Laboratory results show that his white blood cell count has increased to 13.5 from 12.8, with neutrophils at 79.1%. His hemoglobin is at 9.5 g/dL, and hematocrit is at 28.1%. Kidney function tests are normal, blood sugar is 140 mg/dL, and a procalcitonin level is 0.51. We will continue treatment with 0.9% NaCl at 100 cc/hour, Zosyn, and vancomycin. An MRI of foot without contrast is pending. Podiatry recommendations are available, Iodosorb daily for wound care. The 10 mL fluid over foot swelling was aspirated, which was sent for analysis by the Infectious Disease provider. Wound cultures, both aerobic and anaerobic, are pending. Further assessment and planning will be discussed below. 09/22/24 patient was seen and examined at bedside. Case discussed with RN and family by the bedside. He was still having a fever as high as 102 await podiatry intervention. 09/23/24: The patient was examined at the bedside today. He underwent incision and drainage yesterday by Dr. Lemos due to an abscess in the right ankle that reached the joint level, resulting in a septic joint. The procedure was completed without any complications. Recommendations include continuing local wound care and administering IV antibiotics daily along with a wound dressing. According to the nurse, the packing was completely soaked with pus, indicating that it is actively draining. An MRI revealed mild abnormal T1 and T2 signals in the left inferior distal phalanx of the first toe, suggesting early osteomyelitis. Dr. Lemos recommended amputation of the hallux; however, the patient prefers to avoid amputation and pursue a trial of antibiotics instead. He has been afebrile for over 24 hours, and his vital signs are stable. He reports slight improvement in his right ankle pain and denies any additional complaints or concerns. Laboratory results show a decrease in white blood cell count from 13.5 to 11.7, with hemoglobin at 8.9 and hematocrit at 25.5. Blood sugar levels have significantly improved, currently at 124, down from 198. Cultures have showed coagulase negative Staphylococcus, patient continues to receive vancomycin and Zosyn. He was told that the preoperative EKG was abnormal, and we will repeat the EKG today. We will continue with IV antibiotics and fluids. Follow up with Podiatry and adhere to Infectious Disease recommendations. Further assessment and planning are discussed below. 09/24/24: The patient was examined at the bedside today, and there were no acute episodes overnight. He is hemodynamically stable, afebrile for over 48 hours. The patient inquired about how long he should take to decide on amputation. It was explained that this decision would depend on improvements seen with IV antibiotics, his clinical symptoms, and follow-up radiology investigations. Declined amputation of hallux for now. The wound culture tested positive for beta-hemolytic Streptococcus group G, and coagulase negative staphylococcus which is susceptible to penicillin; sensitivity results are still pending. He is currently receiving Zosyn and vancomycin. He has not been ambulating since admission, as he is anxious about getting his symptoms back worse than before. Lab results show an improvement in white blood cell count, now at 9.8 (down from 11.7), hemoglobin at 8.3, sodium at 135, and BUN 9 and creatinine at 1.1, with no other significant abnormalities. We continue to conduct daily wound dressings and are awaiting recommendations from Infectious Disease regarding whether the patient requires long-term IV ant ibiotics post discharge. Further assessment and planning have been discussed below. REVIEW OF SYSTEMS CONSTITUTIONAL: No fever, chills, or night sweats. No unintentional weight loss reported. NEUROLOGICAL: Denies headache, amaurosis fugax, motor weakness, sensory deficit, vertigo/spinning sensation, gait abnormalities, or tremors. ENT: No hearing loss, otalgia, otorrhea, rhinitis, rhinorrhea, hoarseness, or sore throat. CARDIOVASCULAR: Denies any exertional angina, dyspnea on exertion, orthopnea, paroxysmal nocturnal dyspnea, palpitations, life-threatening arrhythmias, claudication. PULMONARY: Denies any shortness of breath, cough, phlegm/sputum, hemoptysis, pleuritic chest pain. SLEEP: Denies morning headaches, daytime somnolence or napping. Denies difficulty falling asleep, staying asleep, waking from sleep. Denies knowledge of snoring. GASTROINTESTINAL: Denies any type of dysphagia to either liquids or solids. Denies nausea, vomiting, pyrosis, early satiety, abdominal pain, diarrhea, constipation, or changes in stool consistency or caliber. Denies coffee-ground emesis, hematemesis, hematochezia, or melanotic stools. GENITOURINARY: Denies frequency, urgency, nocturia, hematuria or incontinence (Storage/Irritative symptoms.) Low urinary stream, straining to void, urinary intermittency or hesitancy, splitting of the voiding stream, terminal dribbling. ENDOCRINOLOGIC: Denies polyuria, polydipsia, polyphagia or heat/cold intolerances. HEMATOLOGIC: Denies thrombophilia/previous clots, or coagulopathy/bleeding disorders. ONCOLOGIC: Denies personal history of malignancy. DERMATOLOGIC: Complaints of right ankle and foot swelling pain, dressing present over right foot, Denies rashes or pruritus. PSYCHIATRIC: Denies any suicidal or homicidal ideation. Denies hallucinations. PHYSICAL EXAM GENERAL APPEARANCE: The patient is awake, alert, and oriented, in no acute cardiopulmonary distress. NEUROLOGICAL: Cranial nerves II-XII grossly intact. Motor is 5/5 in bilateral upper and lower extremities proximal to distal. No sensory deficits. HEENT: Face is symmetric. Pupils are equal and reactive. Extraocular movements are intact. NECK: Supple. No JVD. No thyromegaly. No submental, submandibular, pre- /postauricular, occipital or supraclavicular lymphadenopathy. CHEST: Normal chest expansion. No Telemetry. LUNGS: Absence of any rales, rhonchi or any wheezing. CARDIOVASCULAR: Regular. S1 and S2 normal. No appreciable rubs, murmurs or gallops. ABDOMEN: Soft, nontender, and nondistended. There is no rebound, voluntary guarding, or rigidity. : Deferred. No Newman. EXTREMITIES: Incision and drainage on the lateral portion of the right ankle, with packing in placed SKIN: Poor healing wound ulcer to right big toe Vital Signs (last 8hr) Date Time Temp Pulse Resp B/P (MAP) Pulse Ox O2 Delivery O2 Flow Rate FiO2 09/24/24 08:29 97.9 60 18 133/66 100 Room Air 09/24/24 03:33 98.2 73 16 138/77 98 Room Air LABS: Laboratory: Test 09/24/24 05:10 09/24/24 05:05 09/23/24 19:57 Range/Units White Blood Count 9.8 4.8-10.8 K/uL Red Blood Count 2.83 L 4.50-6.20 MIL/uL Hemoglobin 8.3 L 14.0-18.0 g/dL Hematocrit 24.0 L 42-54 % Mean Corpuscular Volume 84.8 79-99 fL Mean Corpuscular Hemoglobin 29.3 27.0-33.0 pg Mean Corpuscular Hemoglobin Concent 34.6 32.0-36.0 g/dL Red Cell Distribution Width 13.7 11.0-15.5 % Platelet Count 446 H 130-400 K/uL Mean Platelet Volume 9.5 7.5-10.5 fL Immature Granulocyte % (Auto) 1.2 H 0-1 % Neutrophils (%) (Auto) 72.4 40.0-77.0 % Lymphocytes (%) (Auto) 15.6 L 21.0-51.0 % Monocytes (%) (Auto) 8.2 3.0-13.0 % Eosinophils (%) (Auto) 1.7 0.0-8.0 % Basophils (%) (Auto) 0.9 0.0-5.0 % Neutrophils # (Auto) 7.1 1.8-7.7 K/uL Lymphocytes # (Auto) 1.5 1.0-4.8 K/uL Monocytes # (Auto) 0.8 0.1-1.0 K/uL Eosinophils # (Auto) 0.17 0.00-0.70 K/uL Basophils # (Auto) 0.09 0.00-0.20 K/uL Absolute Immature Granulocyte (auto 0.12 0-1 K/uL Nucleated Red Blood Cells 0.0 0.0-0.19 % Sodium Level 135 L 136-145 mmol/L Potassium Level 3.9 3.5-5.1 mmol/L Chloride Level 101 101-111 mmol/L Carbon Dioxide Level 24 21-32 mmol/L Blood Urea Nitrogen 9 7-18 mg/dL Creatinine 1.1 0.5-1.3 mg/dL Glomerular Filtration Rate Calc 83 >90 mL/min Random Glucose 113 H 70-105 mg/dL Total Calcium 8.3 L 8.5-10.1 mg/dL Whole Blood Glucose 111 #H 70-110 MG/DL Vancomycin Level Trough 10.3 # 10.0-20.0 UG/ML Current Medications Medications (Trade) Dose Ordered Sig/Jennifer Route PRN Reason Start Time Stop Time Status Last Admin Dose Admin Acetaminophen (TYLenol 325MG TAB) 650 mg Q6H PRN PO FEVER/HEADACHE 09/21/24 06:30 10/21/24 06:29 09/21/24 16:26 650 MG Acetaminophen/ Hydrocodone Bitart (NORco 5/325MG) 1 tab Q4H PRN PO MODERATE PAIN (4-6) 09/20/24 23:00 09/25/24 22:59 09/21/24 08:50 1 TAB Acetaminophen/ Hydrocodone Bitart (NORco 5/325MG) 2 tab Q4H PRN PO SEVERE PAIN (7-10) 09/20/24 23:00 09/25/24 22:59 09/24/24 04:11 2 TAB Cadexomer Iodine (Iodosorb Gel 40gm) 1 APPL DAILY TP 09/21/24 12:00 10/21/24 11:59 09/24/24 08:50 1 APPL Dextrose (D50w) 50 ml AD PRN IV HYPOGLYCEMIA PROTOCOL 09/20/24 23:00 10/20/24 22:59 Famotidine (Pepcid 20mg Tab) 20 mg BID PO 09/21/24 09:00 09/20/24 22:56 DC Famotidine (Pepcid 20mg Tab) 20 mg BID PO 09/21/24 09:00 10/21/24 08:59 09/24/24 08:48 20 MG Glucagon (Glucagon 1mg Kit) 1 mg AD PRN IM HYPOGLYCEMIA PROTOCOL 09/20/24 23:00 10/20/24 22:59 Heparin Sodium (Porcine) (HEParin 5,000 UNIT VIAL) 5,000 unit Q12H SQ 09/21/24 12:30 10/21/24 12:29 09/23/24 22:15 5,000 UNIT Hydromorphone HCl (DiLAUDid 0.5MG INJ) 0.5 mg Q6H PRN IVP SEVERE PAIN (7-10) 09/22/24 15:30 09/24/24 07:49 DC 09/23/24 22:16 0.5 MG Insulin Human Regular (humuLIN R 100 UNIT/ML 3ML) INSULIN SLIDING SCAL... ACHS SQ 09/21/24 07:30 10/21/24 07:29 09/23/24 20:15 4 UNIT Lactulose (Constulose 20gm/ 30ml Udcup) 20 gm BID PRN PO CONSTIPATION 09/20/24 23:00 10/20/24 22:59 09/21/24 08:51 20 GM Magnesium Sulfate 50 ml @ 0 mls/hr PROTOCOL PRN IV OTHER [SEE ORDER COMMENTS] 09/20/24 23:00 10/20/24 22:59 Ondansetron HCl (zoFRAN 4MG INJ) 4 mg Q6H PRN IV NAUSEA/VOMITING 09/20/24 23:00 10/20/24 22:59 Piperacillin Sod/ Tazobactam Sod 50 ml @ 12.5 mls/hr ZOSY8 IV 09/21/24 05:00 10/01/24 04:59 09/24/24 03:37 12.5 MLS/HR Piperacillin Sod/ Tazobactam Sod 50 ml @ 200 mls/hr STAT STAT IVPB 09/20/24 20:24 09/20/24 20:38 DC 09/20/24 21:04 200 MLS/HR Potassium Chloride 100 ml @ 100 mls/hr AD PRN IV POTASSIUM PROTOCOL 09/20/24 23:00 10/20/24 22:59 Potassium Chloride (K-Dur/Klor-Con 20meq) 20 meq AD PRN PO POTASSIUM PROTOCOL 09/20/24 23:00 10/20/24 22:59 09/22/24 08:07 20 MEQ Potassium Chloride (KCl 10% Elixir 20meq/15ml) 20 meq AD PRN PO POTASSIUM PROTOCOL 09/20/24 23:00 10/20/24 22:59 Sodium Chloride 1,000 ml @ 100 mls/hr Q10H IV 09/20/24 23:00 10/20/24 22:59 09/24/24 03:36 100 MLS/HR Vancomycin HCl 250 ml @ 125 mls/hr ONCE IV 09/20/24 23:00 09/20/24 23:12 DC Vancomycin HCl 250 ml @ 125 mls/hr Q12H IV 09/21/24 09:00 10/01/24 08:59 09/24/24 08:48 125 MLS/HR Vancomycin HCl (Vancomycin Protocol) 1 each AD IV 09/20/24 23:30 10/04/24 23:29 DIAGNOSTICS / RADIOLOGY: [place] [address] IMAGING REPORT Signed PATIENT: VERNON LAMBERT MR#: [id number] : 1975 SEX: M AGE: 49 LOCATION: 3BH ORDER 53 STATUS: ADM IN REPORT#: [id number] SERVICE 41 REASON: right foot cellulitis ORDERING PHYSICIAN: ISABEL AGEE VOLCANOLOGY TEACHER PROCEDURE: FT RT WO - MR FOOT RIGHT WO MR FOOT RIGHT WO HISTORY: right foot cellulitis TECHNIQUE: Multiplanar multisequence MRI of the right mid/forefoot was performed without contrast. FINDINGS: Diffuse soft tissue swelling suggesting cellulitis/myositis. Study degraded by motion. Soft tissue ulcer seen in the first toe. Mild abnormal T1 and T2 signals in the distal phalanx of the first toe suggesting early osteomyelitis.. IMPRESSION: 1. Diffuse soft tissue swelling suggesting cellulitis/myositis. 2. Study degraded by motion. 3. Soft tissue ulcer seen in the first toe. 4. Mild abnormal T1 and T2 signals in the inferior distal phalanx of the first toe suggesting early osteomyelitis.. DICTATED BY: ORQUIDEA BERUMEN MD DATE: 09/22/24905 ELECTRONICALLY SIGNED BY: ORQUIDEA BERUMEN MD DATE: 09/22/24912 [place] [id number] [place] [address] [id number] IMAGING REPORT Signed PATIENT: VERNON LAMBERT MR#: [id number] : 1975 SEX: M AGE: 49 LOCATION: EDH ORDER 51 STATUS: REG ER REPORT#: [id number] SERVICE 50 REASON: swelling ORDERING PHYSICIAN: REINA SEAMAN PROCEDURE: [id number] - ANKLE COMP 3VWS RT Exam Type: FOOT COMP 3+VWS RT, ANKLE COMP 3VWS RT Clinical Information: r/o osteomyelitis, swelling, cellulitis Comparison: None Findings and impression: Soft tissue swelling of the ankle consistent with cellulitis or sprain. No fractures or dislocations. Calcaneal spurs. No bone destruction to suggest osteomyelitis DICTATED BY: SHARDA SAMUEL MD DATE: 09/20/242107 ELECTRONICALLY SIGNED BY: SHARDA SAMUEL MD DATE: 09/20/242111 [place] [address] [id number] IMAGING REPORT Signed PATIENT: VERNON LAMBERT MR#: [id number] : 1975 SEX: M AGE: 49 LOCATION: EDH ORDER 28 STATUS: REG ER REPORT#: [id number] SERVICE 23 REASON: r/o osteomyelitis, swelling, cellulitis ORDERING PHYSICIAN: REINA SEAMAN PROCEDURE: FT 3VW RT - FOOT COMP 3+VWS RT Exam Type: FOOT COMP 3+VWS RT, ANKLE COMP 3VWS RT Clinical Information: r/o osteomyelitis, swelling, cellulitis Comparison: None Findings and impression: Soft tissue swelling of the ankle consistent with cellulitis or sprain. No fractures or dislocations. Calcaneal spurs. No bone destruction to suggest osteomyelitis DICTATED BY: SHARDA SAMUEL MD DATE: 09/20/242107 ELECTRONICALLY SIGNED BY: SHARDA SAMUEL MD DATE: 09/20/242111 RUN DATE: 09/24/24 [facility] [address] RUN TIME: [id number] [address], [place] [address] Department of [employer] CLIA # [id number] Field Artillery Cannoneer: Nixon Sharma DO Specimen Report PATIENT: VERNON LAMBERT ACCT: [id number] LOC: [facility] U: [id number] AGE/SX: 49/M ROOM: [facility] RE09/20/[address]: TARAS CARR MD : 1975 BED: 1 DIS: STATUS: ADM IN TLOC: SPEC: [id number] SHEILA: 09/21/24 STATUS: COMP REQ: [id number] RECD: 09/21/[address]: REINA SEAMAN SOURCE: FOOT ENTR: 09/20/24 MICHELLE GARRIDO: NONE SPDESC: FOOT RIGHT SELF,REFERRAL ORDERED: ASTRID CULTURE, AEROBIC CULTURE Procedure Result Brad Date-Time ANAEROBIC CULTURE Final 09/24/24-529 MRL COLONY DESCRIPTION: REPORT 1: NO ANAEROBES AT 24-35 HOURS; STUDIES TO CONTINUE REPORT 2: NO ANAEROBES AT 48-59 HOURS; STUDIES TO CONTINUE REPORT 3: NO ANAEROBES AT 72-96 HOURS Test(s) performed by: [facility] [address] [place] [place] [address] AEROBIC CULTURE Final 09/24/24-35 [facility] COLONY DESCRIPTION: REPORT 1: 1+ SKIN JULIANNE ; STUDIES TO CONTINUE COAGULASE NEGATIVE STAPHYLOCOCCUS REPORT 2: 1+ GRAM POSITIVE COCCI IN CLUSTERS STAPHYLOCOCCUS AUREUS SENSITIVITY TO FOLLOW REPORT 3: NO FURTHER WORK-UP DONE STAPHYLOCOCCUS AUREUS S. AUREUS M.I.C. RX --------- ---- ERYTHROMYCIN <=0.5 S GENTAMICIN <=4 S LEVOFLOXACIN <=1 S VANCOMYCIN 1 S OXACILLIN DILMA 1 S RIFAMPIN <=1 S PENICILLIN >8 Diego TRIMETHOPRIM/SUFLAMETHOXAZOLE <=0.5/9.5 S -------- ---- @ [facility] Test Performed at: [facility] [address], [place], [place] Medical Game Breeding Farm Manager: Sukh Alicea D.O. ASSESSMENT: Right ankle cellulitis and abscess, s/p incision and drainage on 09/22/2024 POA Poor wound healing ulcer to right big toe, +coagulase negative Staphylococcus aureus POA Possible right great toe osteomyelitis, per MRI 09/20/2024 Leukocytosis, resolved POA Elevated acute phase reactants, ESR, Procalcitonin POA Uncontrolled type 2 diabetes mellitus POA Acute normocytic normochromic anemia Hyponatremia, resolved POA Hypoalbuminemia POA Obesity POA Nicotine dependence POA Active alcohol drinker POA PLAN: The patient remains admitted on the medical surgical floor. Right ankle cellulitis and abscess, s/p incision and drainage on 09/22/2024 POA Poor wound healing ulcer to right big toe, +coagulase negative Staphylococcus aureus POA Leukocytosis, resolved POA Elevated acute phase reactants, ESR, Procalcitonin POA * Continue with 0.9% Na Cl 100 cc/hour and re-evaluate tomorrow. * Cultures showed beta-hemolytic Streptococcus group G and Coagulase negative staphylococcus aureus sensitive to penicillin. Continue with current antibiotics IV Zosyn and vancomycin. * Monitor for febrile episodes. * Continue with Iodosorb daily for wound care per metal rivet machine operator recommendations. * Follow up with Infectious Disease recommendations. Possible right great toe osteomyelitis, per MRI 09/20/2024 * The metal rivet machine operator discussed that the patient will need an amputation of the hallux; however, the patient does not want to proceed with the amputation and instead wants to try a course of antibiotics. Uncontrolled type 2 diabetes mellitus POA * Recent blood sugar level today is 113. * Continue with insulin sliding scale AC & HS with hypoglycemia protocol * Continue with consistent carb diet. Nicotine dependence POA Active alcohol drinker POA * Counseled on smoking and alcohol use cessation DVT prophylaxis: Heparin 5000 IU q.12h GI prophylaxis: Famotidine 20 mg p.o. b.i.d. We will replace electrolytes as needed per protocol P.r.n. medications: * Zofran 4 mg q.6 for nausea/vomiting * [place] 5/325 2 tablets q.4 for severe pain (7-10) * [place] 5/325 tablet q.4 for moderate pain (4-6) * Lactulose 20 g b.i.d. for constipation * Tylenol 650 mg q.6 for fever and headaches. A.m. labs: CBC, BMP We are per currently pending Infectious Disease recommendations if the patient requires long-term IV antibiotics post discharge. The patient does not have insurance, case management assistance requested. Follow up with the recommendations. The plan was discussed with the patient. He verbalizes understanding. Further orders per hospitalization course. ATTESTATION BY PHYSICIAN I have seen and examined the patient. I reviewed the documentation, medical decision making, and treatment plan as noted by the resident provider above. I agree with the findings and plan of care. Nickolas Fraser MD, MANALI MD Sep 24, 2024 09:06
--- NOTE | 2024-09-24 12:01 | EKG ---
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
--- NOTE | 2024-09-24 17:37 | PN ---
PROGRESS NOTE Date of Service: Sep 24, 2024 Time of Service: 17:35 SUBJECTIVE: Follow up cellulitis and abscess ankle right s/p aspiration of ankle with pus discharge. MRI positive for osteomyelitis of the right hallux. Postoperative day 2. Status post incision and drainage with ankle abscess and septic joint. REVIEW OF SYSTEMS CONSTITUTIONAL: Denies fever, chills, or fatigue. HEAD/FACE: No signs of trauma. EENT: Denies eye pain, blurred vision, double vision, or light sensitivity. RESPIRATORY: Denies shortness of breath, cough, wheezing CARDIOVASCULAR: Denies chest pain, palpitation, syncope GASTROINTESTINAL/ABDOMINAL: Denies abdominal pain, constipation, diarrhea, nausea or vomiting GENITOURINARY: Denies dysuria or hematuria. MUSCULOSKELETAL: Denies joint pain, tenderness, or trauma. INTEGUMENTARY: Open ulcer plantar great toe right foot cellulitis of the right ankle open wound status post incision and drainage of ankle decreased edema and erythema. NEUROLOGICAL/PSYCH: Denies anxiety, depression, heat or cold intolerance. PHYSICAL EXAM EYES: Anicteric. Pupils equal and reactive. HENT: No oral thrush seen, moist Oral mucosa NECK: Supple, no JVD or thyromegaly. LUNGS: Good air entry. No rales, no rhonchi. CARDIOVASCULAR: S1, S2 regular. No murmur heard. ABDOMEN: Soft, non tender, bowel sounds present, no organomegaly CENTRAL NERVOUS SYSTEM: Awake, alert, oriented x 3. Peripheral polyneuropathy secondary to diabetes SKIN: Ulcer plantar aspect of the right hallux at the level of subcutaneous tissue cellulitis of the right ankle wound open status post incision and drainage wound packing in place Xeroform packing. LYMPHATICS: No peripheral lymphadenopathy MUSCULOSKELETAL: No joint swelling, erythema or tenderness. EXTREMITIES: No cyanosis or clubbing BACK: No deformity, no pressure ulcer. GENITOURINARY: No dysuria or hematuria Vital Signs (last 8hr) Date Time Temp Pulse Resp B/P (MAP) Pulse Ox O2 Delivery O2 Flow Rate FiO2 09/24/24 17:14 97.7 60 18 117/55 99 Room Air 09/24/24 12:18 98.1 63 48 127/68 LABS: Laboratory: Test 09/24/24 15:38 09/24/24 05:10 09/23/24 19:57 Range/Units Whole Blood Glucose 168 H 70-110 MG/DL White Blood Count 9.8 4.8-10.8 K/uL Red Blood Count 2.83 L 4.50-6.20 MIL/uL Hemoglobin 8.3 L 14.0-18.0 g/dL Hematocrit 24.0 L 42-54 % Mean Corpuscular Volume 84.8 79-99 fL Mean Corpuscular Hemoglobin 29.3 27.0-33.0 pg Mean Corpuscular Hemoglobin Concent 34.6 32.0-36.0 g/dL Red Cell Distribution Width 13.7 11.0-15.5 % Platelet Count 446 H 130-400 K/uL Mean Platelet Volume 9.5 7.5-10.5 fL Immature Granulocyte % (Auto) 1.2 H 0-1 % Neutrophils (%) (Auto) 72.4 40.0-77.0 % Lymphocytes (%) (Auto) 15.6 L 21.0-51.0 % Monocytes (%) (Auto) 8.2 3.0-13.0 % Eosinophils (%) (Auto) 1.7 0.0-8.0 % Basophils (%) (Auto) 0.9 0.0-5.0 % Neutrophils # (Auto) 7.1 1.8-7.7 K/uL Lymphocytes # (Auto) 1.5 1.0-4.8 K/uL Monocytes # (Auto) 0.8 0.1-1.0 K/uL Eosinophils # (Auto) 0.17 0.00-0.70 K/uL Basophils # (Auto) 0.09 0.00-0.20 K/uL Absolute Immature Granulocyte (auto 0.12 0-1 K/uL Nucleated Red Blood Cells 0.0 0.0-0.19 % Sodium Level 135 L 136-145 mmol/L Potassium Level 3.9 3.5-5.1 mmol/L Chloride Level 101 101-111 mmol/L Carbon Dioxide Level 24 21-32 mmol/L Blood Urea Nitrogen 9 7-18 mg/dL Creatinine 1.1 0.5-1.3 mg/dL Glomerular Filtration Rate Calc 83 >90 mL/min Random Glucose 113 H 70-105 mg/dL Total Calcium 8.3 L 8.5-10.1 mg/dL Vancomycin Level Trough 10.3 # 10.0-20.0 UG/ML DIAGNOSTICS / RADIOLOGY: X-rays negative for osteomyelitis or gas in the soft tissues. ASSESSMENT: Diabetic foot ulcer right hallux Cellulitis of the right ankle Diabetic foot infection. Diabetic polyneuropathy Osteomyelitis hallux right abscess ankle right Status post incision and drainage of septic joint ankle right postoperative day 2. PLAN: Continued IV antibiotics continue local wound care and medical management at this point. JARROD SMITH DPM Sep 24, 2024 17:37
--- NOTE | 2024-09-24 18:15 | PN ---
INFECTIOUS DISEASE PROGRESS NOTE Date of Service: Sep 24, 2024 SUBJECTIVE: This is a 49 year old male patient who was seen seen and examined at bedside in room 311. Patient is status post Incision and drainage of the right ankle abscess on 09/22/2024. Patient is afebrile, temperature is 98.1 and the WBC has trended down to 9.8. Patient's s preliminary cultures is growing coagulase-negative Staphylococcus. We will continue vancomycin and Zosyn and follow up on the intraoperative wound culture results. No reports of nausea or vomiting. PHYSICAL EXAM EYES: Anicteric. Pupils equal and reactive. HENT: No oral thrush seen, moist Oral mucosa NECK: Supple, no JVD or thyromegaly. LUNGS: Good air entry. No rales, no rhonchi. CARDIOVASCULAR: S1, S2 regular. No murmur heard. ABDOMEN: Soft, non tender, bowel sounds present, no organomegaly CENTRAL NERVOUS SYSTEM: Awake, alert, oriented x 3. SKIN: No rashes, no swelling. LYMPHATICS: No peripheral lymphadenopathy MUSCULOSKELETAL: No joint swelling, erythema or tenderness. EXTREMITIES: Right ankle cellulitis with abscess, status post I&D. Right great toe diabetic ulcer. BACK: No deformity, no pressure ulcer. GENITOURINARY: No dysuria or hematuria Vital Sign (Last 12 Hours) 09/24/24 09/24/24 09/24/24 09/24/24 08:00 08:29 12:18 17:14 Temp 97.9 98.1 97.7 Pulse 60 63 60 Resp 18 48 18 B/P (MAP) 133/66 127/68 117/55 Pulse Ox 100 100 99 O2 Delivery Room Air* Room Air Room Air O2 Flow Rate 0 FiO2 21 Intake & Output (last 24hrs) 09/23/24 09/23/24 09/24/24 15:00 23:00 07:00 Intake Total 600 ml 600 ml 2150.0 ml Output Total 800 ml 1200 ml Balance 600 ml -200 ml 950.0 ml LABS: Laboratory: Test 09/24/24 15:38 09/24/24 05:10 09/23/24 19:57 Range/Units Whole Blood Glucose 168 H 70-110 MG/DL White Blood Count 9.8 4.8-10.8 K/uL Red Blood Count 2.83 L 4.50-6.20 MIL/uL Hemoglobin 8.3 L 14.0-18.0 g/dL Hematocrit 24.0 L 42-54 % Mean Corpuscular Volume 84.8 79-99 fL Mean Corpuscular Hemoglobin 29.3 27.0-33.0 pg Mean Corpuscular Hemoglobin Concent 34.6 32.0-36.0 g/dL Red Cell Distribution Width 13.7 11.0-15.5 % Platelet Count 446 H 130-400 K/uL Mean Platelet Volume 9.5 7.5-10.5 fL Immature Granulocyte % (Auto) 1.2 H 0-1 % Neutrophils (%) (Auto) 72.4 40.0-77.0 % Lymphocytes (%) (Auto) 15.6 L 21.0-51.0 % Monocytes (%) (Auto) 8.2 3.0-13.0 % Eosinophils (%) (Auto) 1.7 0.0-8.0 % Basophils (%) (Auto) 0.9 0.0-5.0 % Neutrophils # (Auto) 7.1 1.8-7.7 K/uL Lymphocytes # (Auto) 1.5 1.0-4.8 K/uL Monocytes # (Auto) 0.8 0.1-1.0 K/uL Eosinophils # (Auto) 0.17 0.00-0.70 K/uL Basophils # (Auto) 0.09 0.00-0.20 K/uL Absolute Immature Granulocyte (auto 0.12 0-1 K/uL Nucleated Red Blood Cells 0.0 0.0-0.19 % Sodium Level 135 L 136-145 mmol/L Potassium Level 3.9 3.5-5.1 mmol/L Chloride Level 101 101-111 mmol/L Carbon Dioxide Level 24 21-32 mmol/L Blood Urea Nitrogen 9 7-18 mg/dL Creatinine 1.1 0.5-1.3 mg/dL Glomerular Filtration Rate Calc 83 >90 mL/min Random Glucose 113 H 70-105 mg/dL Total Calcium 8.3 L 8.5-10.1 mg/dL Vancomycin Level Trough 10.3 # 10.0-20.0 UG/ML ASSESSMENT: Right great toe diabetic ulcer with osteomyelitis. Right ankle cellulitis and abscess status post incision and drainage on 09/22/2024. Diabetes mellitus. Morbid obesity. PLAN: Continue vancomycin per pharmacy protocol. Continue Zosyn. Continue pain management. Continue wound care. Continue antidiabetic. We will follow up on the final cultures results. This case was reviewed and discussed with my supervising physician and the above assessment and plan was formulated and agreed upon. ATTESTATION BY PHYSICIAN I have seen and examined the patient. I reviewed the documentation, medical decision making, and treatment plan as noted by the mid-level provider above. I agree with the findings and plan of care. YANI MENDOZA MD, [facility] Sep 24, 2024 18:15
[2024-09-25] VITALS (8 sets, daily range): BP systolic 115–130; BP diastolic 54–72; PULSE 57–64; RESP 18–19; TEMP 98–98.4; O2SAT 93–97
[2024-09-25 06:45] LABS: EOSINOPHILS # (AUTO) 0.39 K/uL (0.00-0.70); EOSINOPHILS % (AUTO) 3.9 % (0.0-8.0); HEMATOCRIT 23.5 % (42-54); IMMATURE GRANULOCYTE ABSOLUTE 0.11 K/uL (0-1); LYMPHOCYTES # (AUTO) 1.8 K/uL (1.0-4.8); MEAN CORPUSCULAR HEMOGLOBIN 29.4 pg (27.0-33.0); MEAN CORPUSCULAR HGB CONC 33.6 g/dL (32.0-36.0); MEAN CORPUSCULAR VOLUME 87.4 fL (79-99); MONOCYTES # (AUTO) 0.9 K/uL (0.1-1.0); MONOCYTES % (AUTO) 9.1 % (3.0-13.0); NEUTROPHILS # (AUTO) 6.8 K/uL (1.8-7.7); NEUTROPHILS % (AUTO) 66.9 % (40.0-77.0); PLATELET COUNT (AUTO) 468 K/uL (130-400); RED BLOOD CELL COUNT(AUTO) 2.69 MIL/uL (4.50-6.20); RED CELL DISTRIBUTION WIDTH 13.8 % (11.0-15.5); WHITE BLOOD COUNT (AUTO) 10.1 K/uL (4.8-10.8)
[2024-09-25 07:07] LABS: POTASSIUM 4.1 mmol/L (3.5-5.1)
[2024-09-25 09:37] LABS: % IRON SATURATION 11.2 % (30-44)
--- NOTE | 2024-09-25 10:17 | PN ---
[facility] PROGRESS NOTE Date of Service: Sep 25, 2024 Time of Service: 10:16 SUBJECTIVE: The patient is a 49-year-old male with a past medical history of type 2 diabetes mellitus presented to the emergency department with swelling, redness, and pain in his right ankle. Additionally, he has had an ulcer on his right big toe for approximately nine months. The patient was seen at this facility on September 06 and prescribed antibiotics; however, he did not complete the course. While the pain slightly improved, the swelling worsened and extended further into the right ankle. In the emergency department, the patient was febrile, with a temperature of 1 00.9F. Laboratory results showed a white blood cell count of 12.8, an ESR greater than 150, sodium levels of 131, and glucose levels of 198. An X-ray of the right foot and ankle indicated soft tissue swelling consistent with cellulitis, but no evidence of bony destruction or osteomyelitis was found. The patient received fluid resuscitation and was started on vancomycin and Zosyn. He was admitted for further management. 09/21/24: The patient was examined at bedside today. He had a fever of 102F at 4:00 a.m. but was otherwise normotensive and breathing room air. He is complaining of swelling and pain in his right foot, which is very sensitive and extremely tender to the touch. The patient is a chronic smoker, consuming one pack of cigarettes every two days for the past 33 years, and he does not have an established primary care provider. 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 He denies any vomiting, abdominal pain, dizziness, or other complaints. Laboratory results show that his white blood cell count has increased to 13.5 from 12.8, with neutrophils at 79.1%. His hemoglobin is at 9.5 g/dL, and hematocrit is at 28.1%. Kidney function tests are normal, blood sugar is 140 mg/dL, and a procalcitonin level is 0.51. We will continue treatment with 0.9% NaCl at 100 cc/hour, Zosyn, and vancomycin. An MRI of foot without contrast is pending. Podiatry recommendations are available, Iodosorb daily for wound care. The 10 mL fluid over foot swelling was aspirated, which was sent for analysis by the Infectious Disease provider. Wound cultures, both aerobic and anaerobic, are pending. Further assessment and planning will be discussed below. 09/22/24 patient was seen and examined at bedside. Case discussed with RN and family by the bedside. He was still having a fever as high as 102 await podiatry intervention. 09/23/24: The patient was examined at the bedside today. He underwent incision and drainage yesterday by Dr. Lemos due to an abscess in the right ankle that reached the joint level, resulting in a septic joint. The procedure was completed without any complications. Recommendations include continuing local wound care and administering IV antibiotics daily along with a wound dressing. According to the nurse, the packing was completely soaked with pus, indicating that it is actively draining. An MRI revealed mild abnormal T1 and T2 signals in the left inferior distal phalanx of the first toe, suggesting early osteomyelitis. Dr. Lemos recommended amputation of the hallux; however, the patient prefers to avoid amputation and pursue a trial of antibiotics instead. He has been afebrile for over 24 hours, and his vital signs are stable. He reports slight improvement in his right ankle pain and denies any additional complaints or concerns. Laboratory results show a decrease in white blood cell count from 13.5 to 11.7, with hemoglobin at 8.9 and hematocrit at 25.5. Blood sugar levels have significantly improved, currently at 124, down from 198. Cultures have showed coagulase negative Staphylococcus, patient continues to receive vancomycin and Zosyn. He was told that the preoperative EKG was abnormal, and we will repeat the EKG today. We will continue with IV antibiotics and fluids. Follow up with Podiatry and adhere to Infectious Disease recommendations. Further assessment and planning are discussed below. 09/24/24: The patient was examined at the bedside today, and there were no acute episodes overnight. He is hemodynamically stable, afebrile for over 48 hours. The patient inquired about how long he should take to decide on amputation. It was explained that this decision would depend on improvements seen with IV antibiotics, his clinical symptoms, and follow-up radiology investigations. Declined amputation of hallux for now. The wound culture tested positive for beta-hemolytic Streptococcus group G, and coagulase negative staphylococcus which is susceptible to penicillin; sensitivity results are still pending. He is currently receiving Zosyn and vancomycin. He has not been ambulating since admission, as he is anxious about getting his symptoms back worse than before. Lab results show an improvement in white blood cell count, now at 9.8 (down from 11.7), hemoglobin at 8.3, sodium at 135, and BUN 9 and creatinine at 1.1, with no other significant abnormalities. We continue to conduct daily wound dressings and are awaiting recommendations from Infectious Disease regarding whether the patient requires long-term IV an tibiotics post discharge. Further assessment and planning have been discussed below. 09/25/24: The patient was examined at the bedside today. He is status post right ankle incision and drainage day 4. He ambulated from his bed to the bathroom for a shower yesterday, which was the only time he walked since admission, and he reported that it was painful. However, he feels that the infection is improving and that the swelling is decreasing. He denies any other complaints. He is hemodynamically stable. Laboratory results showed a hemoglobin level that increased from 7.9 to 8.3 since yesterday, a WBC count of 10.1, and platelet counts that tyrel from 446 to 448. Other results include sodium at 135, chloride at 100, and normal kidney function with a BUN of 9 and creatinine of 1.0. His blood sugar levels have been in the 150s and 160s. The iron panel indicated a percentage saturation of 11.2, TIBC of 154, and iron level of 17. The abscess culture from September 21 showed beta-hemolytic group G Streptococcus and coagulase-negative Staphylococcus aureus. The culture from September 22 revealed 1+ Gram-negative rods, and sensitivity results are pending. The patient is currently on Zosyn and vancomycin. We will start IV Venofer to address iron-deficiency anemia. Daily wound dressings will be performed, and we will follow Infectious Disease recommendations for further management. REVIEW OF SYSTEMS CONSTITUTIONAL: No fever, chills, or night sweats. No unintentional weight loss reported. NEUROLOGICAL: Denies headache, amaurosis fugax, motor weakness, sensory defici t, vertigo/spinning sensation, gait abnormalities, or tremors. ENT: No hearing loss, otalgia, otorrhea, rhinitis, rhinorrhea, hoarseness, or sore throat. CARDIOVASCULAR: Denies any exertional angina, dyspnea on exertion, orthopnea, paroxysmal nocturnal dyspnea, palpitations, life-threatening arrhythmias, claudication. PULMONARY: Denies any shortness of breath, cough, phlegm/sputum, hemoptysis, pleuritic chest pain. SLEEP: Denies morning headaches, daytime somnolence or napping. Denies difficulty falling asleep, staying asleep, waking from sleep. Denies knowledge of snoring. GASTROINTESTINAL: Denies any type of dysphagia to either liquids or solids. Denies nausea, vomiting, pyrosis, early satiety, abdominal pain, diarrhea, constipation, or changes in stool consistency or caliber. Denies coffee-ground emesis, hematemesis, hematochezia, or melanotic stools. GENITOURINARY: Denies frequency, urgency, nocturia, hematuria or incontinence (Storage/Irritative symptoms.) Low urinary stream, straining to void, urinary intermittency or hesitancy, splitting of the voiding stream, terminal dribbling. ENDOCRINOLOGIC: Denies polyuria, polydipsia, polyphagia or heat/cold intolerances. HEMATOLOGIC: Denies thrombophilia/previous clots, or coagulopathy/bleeding disorders. ONCOLOGIC: Denies personal history of malignancy. DERMATOLOGIC: Complaints of right ankle and foot swelling pain, dressing present over right foot, Denies rashes or pruritus. PSYCHIATRIC: Denies any suicidal or homicidal ideation. Denies hallucinations. PHYSICAL EXAM GENERAL APPEARANCE: The patient is awake, alert, and oriented, in no acute cardiopulmonary distress. NEUROLOGICAL: Cranial nerves II-XII grossly intact. Motor is 5/5 in bilateral upper and lower extremities proximal to distal. No sensory deficits. HEENT: Face is symmetric. Pupils are equal and reactive. Extraocular movements are intact. NECK: Supple. No JVD. No thyromegaly. No submental, submandibular, pre- /postauricular, occipital or supraclavicular lymphadenopathy. CHEST: Normal chest expansion. No Telemetry. LUNGS: Absence of any rales, rhonchi or any wheezing. CARDIOVASCULAR: Regular. S1 and S2 normal. No appreciable rubs, murmurs or gallops. ABDOMEN: Soft, nontender, and nondistended. There is no rebound, voluntary guarding, or rigidity. : Deferred. No Newman. EXTREMITIES: Incision and drainage on the lateral portion of the right ankle, with packing in placed SKIN: Poor healing wound ulcer to right big toe Vital Signs (last 8hr) Date Time Temp Pulse Resp B/P (MAP) Pulse Ox O2 Delivery O2 Flow Rate FiO2 6/10/25 08:40 98.1 58 18 118/62 97 Room Air 09/25/24 04:40 98.4 62 18 129/59 96 Room Air LABS: Laboratory: Test 09/25/24 06:09 09/25/24 05:34 09/23/24 19:57 Range/Units White Blood Count 10.1 4.8-10.8 K/uL Red Blood Count 2.69 L 4.50-6.20 MIL/uL Hemoglobin 7.9 L 14.0-18.0 g/dL Hematocrit 23.5 L 42-54 % Mean Corpuscular Volume 87.4 79-99 fL Mean Corpuscular Hemoglobin 29.4 27.0-33.0 pg Mean Corpuscular Hemoglobin Concent 33.6 32.0-36.0 g/dL Red Cell Distribution Width 13.8 11.0-15.5 % Platelet Count 468 H 130-400 K/uL Mean Platelet Volume 9.6 7.5-10.5 fL Immature Granulocyte % (Auto) 1.1 H 0-1 % Neutrophils (%) (Auto) 66.9 40.0-77.0 % Lymphocytes (%) (Auto) 18.0 L 21.0-51.0 % Monocytes (%) (Auto) 9.1 3.0-13.0 % Eosinophils (%) (Auto) 3.9 0.0-8.0 % Basophils (%) (Auto) 1.0 0.0-5.0 % Neutrophils # (Auto) 6.8 1.8-7.7 K/uL Lymphocytes # (Auto) 1.8 1.0-4.8 K/uL Monocytes # (Auto) 0.9 0.1-1.0 K/uL Eosinophils # (Auto) 0.39 0.00-0.70 K/uL Basophils # (Auto) 0.10 0.00-0.20 K/uL Absolute Immature Granulocyte (auto 0.11 0-1 K/uL Nucleated Red Blood Cells 0.0 0.0-0.19 % Sodium Level 135 L 136-145 mmol/L Potassium Level 4.1 3.5-5.1 mmol/L Chloride Level 100 L 101-111 mmol/L Carbon Dioxide Level 27 21-32 mmol/L Blood Urea Nitrogen 9 7-18 mg/dL Creatinine 1.0 0.5-1.3 mg/dL Glomerular Filtration Rate Calc 93 >90 mL/min Random Glucose 158 H 70-105 mg/dL Total Calcium 8.5 8.5-10.1 mg/dL Iron Level 17 L 65-175 mcg/dL Total Iron Binding Capacity 151 L 250-450 mcg/dL Percent Iron Saturation 11.2 L 30-44 % Vitamin B12 Level 555 193-986 pg/mL Folic Acid (LAB) 12.40 2-20 ng/mL Whole Blood Glucose 154 H 70-110 MG/DL Vancomycin Level Trough 10.3 # 10.0-20.0 UG/ML Current Medications Medications (Trade) Dose Ordered Sig/Jennifer Route PRN Reason Start Time Stop Time Status Last Admin Dose Admin Acetaminophen (TYLenol 325MG TAB) 650 mg Q6H PRN PO FEVER/HEADACHE 09/21/24 06:30 10/21/24 06:29 09/21/24 16:26 650 MG Acetaminophen/ Hydrocodone Bitart (NORco 5/325MG) 1 tab Q4H PRN PO MODERATE PAIN (4-6) 09/20/24 23:00 09/25/24 22:59 09/21/24 08:50 1 TAB Acetaminophen/ Hydrocodone Bitart (NORco 5/325MG) 2 tab Q4H PRN PO SEVERE PAIN (7-10) 09/20/24 23:00 09/25/24 22:59 09/25/24 03:39 2 TAB Cadexomer Iodine (Iodosorb Gel 40gm) 1 APPL DAILY TP 09/21/24 12:00 10/21/24 11:59 09/25/24 08:13 1 APPL Dextrose (D50w) 50 ml AD PRN IV HYPOGLYCEMIA PROTOCOL 09/20/24 23:00 10/20/24 22:59 Famotidine (Pepcid 20mg Tab) 20 mg BID PO 09/21/24 09:00 09/20/24 22:56 DC Famotidine (Pepcid 20mg Tab) 20 mg BID PO 09/21/24 09:00 10/21/24 08:59 09/25/24 08:12 20 MG Glucagon (Glucagon 1mg Kit) 1 mg AD PRN IM HYPOGLYCEMIA PROTOCOL 09/20/24 23:00 10/20/24 22:59 Heparin Sodium (Porcine) (HEParin 5,000 UNIT VIAL) 5,000 unit Q12H SQ 09/21/24 12:30 10/21/24 12:29 09/24/24 23:53 5,000 UNIT Hydromorphone HCl (DiLAUDid 0.5MG INJ) 0.5 mg Q6H PRN IVP SEVERE PAIN (7-10) 09/22/24 15:30 09/24/24 07:49 DC 09/23/24 22:16 0.5 MG Insulin Human Regular (humuLIN R 100 UNIT/ML 3ML) INSULIN SLIDING SCAL... ACHS SQ 09/21/24 07:30 10/21/24 07:29 09/24/24 11:38 2 UNIT Lactulose (Constulose 20gm/ 30ml Udcup) 20 gm BID PRN PO CONSTIPATION 09/20/24 23:00 10/20/24 22:59 09/24/24 21:01 20 GM Magnesium Sulfate 50 ml @ 0 mls/hr PROTOCOL PRN IV OTHER [SEE ORDER COMMENTS] 09/20/24 23:00 10/20/24 22:59 Ondansetron HCl (zoFRAN 4MG INJ) 4 mg Q6H PRN IV NAUSEA/VOMITING 09/20/24 23:00 10/20/24 22:59 Piperacillin Sod/ Tazobactam Sod 50 ml @ 12.5 mls/hr ZOSY8 IV 09/21/24 05:00 10/01/24 04:59 09/25/24 04:08 12.5 MLS/HR Piperacillin Sod/ Tazobactam Sod 50 ml @ 200 mls/hr STAT STAT IVPB 09/20/24 20:24 09/20/24 20:38 DC 09/20/24 21:04 200 MLS/HR Potassium Chloride 100 ml @ 100 mls/hr AD PRN IV POTASSIUM PROTOCOL 09/20/24 23:00 10/20/24 22:59 Potassium Chloride (K-Dur/Klor-Con 20meq) 20 meq AD PRN PO POTASSIUM PROTOCOL 09/20/24 23:00 10/20/24 22:59 09/22/24 08:07 20 MEQ Potassium Chloride (KCl 10% Elixir 20meq/15ml) 20 meq AD PRN PO POTASSIUM PROTOCOL 09/20/24 23:00 10/20/24 22:59 Sodium Chloride 1,000 ml @ 100 mls/hr Q10H IV 09/20/24 23:00 10/20/24 22:59 09/24/24 03:36 100 MLS/HR Vancomycin HCl 250 ml @ 125 mls/hr ONCE IV 09/20/24 23:00 09/20/24 23:12 DC Vancomycin HCl 250 ml @ 125 mls/hr Q12H IV 09/21/24 09:00 10/01/24 08:59 09/25/24 08:12 125 MLS/HR Vancomycin HCl (Vancomycin Protocol) 1 each AD IV 09/20/24 23:30 10/04/24 23:29 DIAGNOSTICS / RADIOLOGY: [facility] [address] [place] [address] [id number] IMAGING REPORT Signed PATIENT: VERNON LAMBERT MR#: [id number] : 1975 SEX: M AGE: 49 LOCATION: [facility] ORDER 53 STATUS: ADM IN REPORT#: [id number] SERVICE 2245 REASON: right foot cellulitis ORDERING PHYSICIAN: ISABEL AGEE SANITATION ENGINEER PROCEDURE: FT RT WO - MR FOOT RIGHT WO MR FOOT RIGHT WO HISTORY: right foot cellulitis TECHNIQUE: Multiplanar multisequence MRI of the right mid/forefoot was performed without contrast. FINDINGS: Diffuse soft tissue swelling suggesting cellulitis/myositis. Study degraded by motion. Soft tissue ulcer seen in the first toe. Mild abnormal T1 and T2 signals in the distal phalanx of the first toe suggesting early osteomyelitis.. IMPRESSION: 1. Diffuse soft tissue swelling suggesting cellulitis/myositis. 2. Study degraded by motion. 3. Soft tissue ulcer seen in the first toe. 4. Mild abnormal T1 and T2 signals in the inferior distal phalanx of the first toe suggesting early osteomyelitis.. DICTATED BY: ORQUIDEA BERUMEN MD DATE: 09/22/24905 ELECTRONICALLY SIGNED BY: ORQUIDEA BERUMEN MD DATE: 09/22/24912 [facility] [address] [place], [place] [id number] IMAGING REPORT Signed PATIENT: VERNON LAMBERT MR#: [id number] : 1975 SEX: M AGE: 49 LOCATION: [facility] ORDER 51 STATUS: REG ER REPORT#: [id number] SERVICE 50 REASON: swelling ORDERING PHYSICIAN: REINA SEAMAN PROCEDURE: [id number] - ANKLE COMP 3VWS RT Exam Type: FOOT COMP 3+VWS RT, ANKLE COMP 3VWS RT Clinical Information: r/o osteomyelitis, swelling, cellulitis Comparison: None Findings and impression: Soft tissue swelling of the ankle consistent with cellulitis or sprain. No fractures or dislocations. Calcaneal spurs. No bone destruction to suggest osteomyelitis DICTATED BY: SHARDA SAMUEL MD DATE: 09/20/242107 ELECTRONICALLY SIGNED BY: SHARDA SAMUEL MD DATE: 09/20/242111 RUN DATE: 09/24/24 [facility] PAGE 1 RUN TIME: [address] [place] [address] Department of Laboratories CLIA # [id number] Door Liner: Nixon Sharma DO Specimen Report ------- ----- PATIENT: VERNON LAMBERT ACCT: [id number] LOC: [facility] U: [id number] AGE/SX: 49/M ROOM: 311 RE09/20/[address]: TARAS CARR MD : 1975 BED: 1 DIS: STATUS: ADM IN TLOC: SPEC: [id number] SHEILA: 09/21/24 STATUS: ALINA REQ: [id number] RECD: 09/21/[address]: REINA SEAMAN SOURCE: FOOT ENTR: 09/20/[address]: NONE SPDESC: FOOT RIGHT SELF,REFERRAL ORDERED: ASTRID CULTURE, AEROBIC CULTURE Procedure Result Brad Date-Time ANAEROBIC CULTURE Final 09/24/24-45 [facility] COLONY DESCRIPTION: REPORT 1: NO ANAEROBES AT 24-35 HOURS; STUDIES TO CONTINUE REPORT 2: NO ANAEROBES AT 48-59 HOURS; STUDIES TO CONTINUE REPORT 3: NO ANAEROBES AT 72-96 HOURS Test(s) performed by: [facility] [address] [place] [address] AEROBIC CULTURE Final 09/24/24-0982 [facility] COLONY DESCRIPTION: REPORT 1: 1+ SKIN JULIANNE ; STUDIES TO CONTINUE COAGULASE NEGATIVE STAPHYLOCOCCUS REPORT 2: 1+ GRAM POSITIVE COCCI IN CLUSTERS STAPHYLOCOCCUS AUREUS SENSITIVITY TO FOLLOW REPORT 3: NO FURTHER WORK-UP DONE STAPHYLOCOCCUS AUREUS S. AUREUS M.I.C. RX --------- ---- ERYTHROMYCIN <=0.5 S GENTAMICIN <=4 S LEVOFLOXACIN <=1 S VANCOMYCIN 1 S OXACILLIN DILMA 1 S RIFAMPIN <=1 S PENICILLIN >8 Diego TRIMETHOPRIM/SUFLAMETHOXAZOLE <=0.5/9.5 S @ [facility] Test Performed at: [facility] [address], [place], [place] Medical Testing Shaking Shipping: Sukh Alicea D.O. RUN DATE: 09/25/24 [facility] [address] 1 RUN TIME: [address] [address], [place] [address] Department of Laboratories CLIA # [id number] Door Liner: Nixon Sharma DO Specimen Report PATIENT: VERNON LAMBERT ACCT: [id number] LOC: [facility] U: [id number] AGE/SX: 49/M ROOM: 311 RE09/20/[address]: TARAS CARR MD : 1975 BED: 1 DIS: STATUS: ADM IN TLOC: SPEC: [id number] SHEILA: 09/21/24 STATUS: ALINA REQ: [id number] RECD: 09/21/[address]: YANI MENDOZA MD SOURCE: LEG ENTR: 09/21/[address]: [facility]ARR [facility]ESS SELF,REFERRAL JARROD LEMOS DPM ORDERED: ASTRID CULTURE, AEROBIC CULTURE COMMENTS: Has specimen been collected/obtained? Y Has specimen been collected/obtained? Y Has specimen been collected/obtained? Y Has specimen been collected/obtained? Y Has specimen been collected/obtained? Y Has specimen been collected/obtained? Y Has specimen been collected/obtained? Y Has specimen been collected/obtained? Y Has specimen been collected/obtained? Y Has specimen been collected/obtained? Y Has specimen been collected/obtained? Y Procedure Result Brad Date-Time ANAEROBIC CULTURE Final 09/25/24-1019 [facility] COLONY DESCRIPTION: REPORT 1: NO ANAEROBES AT 24-35 HOURS; STUDIES TO CONTINUE REPORT 2: NO ANAEROBES AT 48-59 HOURS; STUDIES TO CONTINUE REPORT 3: NO ANAEROBES AT 72-96 HOURS Test(s) performed by: [facility] [address] [place] [address] AEROBIC CULTURE Final 09/24/24-0801 [facility] COLONY DESCRIPTION: REPORT 1: 1+ SKIN JULIANNE ; STUDIES TO CONTINUE COAGULASE NEGATIVE STAPHYLOCOCCUS REPORT 2: 1+ GRAM POSITIVE COCCI IN CHAINS IDENTIFICATION TO FOLLOW BETA HEMOLYTIC STREPTOCOCCUS GROUP G NO FURTHER WORK-UP DONE COMMENT: BETA STREPTOCOCCUS REMAIN SUSCEPTIBLE TO PENICILLIN COMMENT: NO FURTHER WORK-UP STREPTOCOCCUS GROUP G @ [facility] Test Performed at: [facility] [address], [place], [place] Medical Testing Shaking Shipping: Sukh Alicea D.O. RUN DATE: 09/25/24 [facility] [address] 1 RUN TIME: [address] [address], [place] [address] Department of Laboratories CLIA # [id number] Door Liner: Nixon Sharma DO Specimen Report PATIENT: VERNON LAMBERT ACCT: [id number] LOC: [facility] U: [id number] AGE/SX: 49/M ROOM: [facility] RE09/20/[address]: TARAS CARR MD : 1975 BED: 1 DIS: STATUS: ADM IN TLOC: SPEC: [id number] SHEILA: 09/22/24 STATUS: RES REQ: [id number] RECD: 09/22/[address]: LEMOS,MYNOR DPM SOURCE: ANKLE ENTR: 09/22/24-[address]: YANI MENDOZA MD SPDESC: RIGHT TARAS CARR MD SELF,REFERRAL ORDERED: ASTRID CULTURE, AEROBIC CULTURE COMMENTS: Has specimen been collected/obtained? Y Specimen Comment: RIGHT ANKLE ABSCESS Has specimen been collected/obtained? Y Specimen Comment: RIGHT ANKLE ABSCESS Has specimen been collected/obtained? Y Specimen Comment: RIGHT ANKLE ABSCESS Has specimen been collected/obtained? Y Specimen Comment: RIGHT ANKLE ABSCESS Has specimen been collected/obtained? Y Specimen Comment: RIGHT ANKLE ABSCESS Has specimen been collected/obtained? Y Specimen Comment: RIGHT ANKLE ABSCESS Has specimen been collected/obtained? Y Specimen Comment: RIGHT ANKLE ABSCESS Has specimen been collected/obtained? Y Specimen Comment: RIGHT ANKLE ABSCESS Has specimen been collected/obtained? Y Specimen Comment: RIGHT ANKLE ABSCESS Procedure Result Brad Date-Time ANAEROBIC CULTURE Preliminary 09/25/24 [facility] COLONY DESCRIPTION: REPORT 1: NO ANAEROBES AT 16-23 HOURS; STUDIES TO CONTINUE Test(s) performed by: [facility] [address] [place] [address] AEROBIC CULTURE Preliminary 09/25/24 [facility] COLONY DESCRIPTION: REPORT 1: 1+ GRAM NEGATIVE RODS IDENTIFICATION AND SENSITIVITY TO FOLLOW REPORT 2: SLOW-GROWER; RESULTS PENDING @ [facility] Test Performed at: [facility] [address], [place], [place] Medical Testing Shaking Shipping: Sukh Alicea D.O. ASSESSMENT: Right ankle cellulitis and abscess, s/p incision and drainage on 09/22/2024 POA Right ankle abscess +coagulase negative Staphylococcus aureus, Streptococcus gr oup G Poor wound healing ulcer to right big toe, POA Possible right great toe osteomyelitis, per MRI 09/20/2024 Leukocytosis, resolved POA Elevated acute phase reactants, ESR, Procalcitonin POA Uncontrolled type 2 diabetes mellitus POA Iron deficiency anemia Reactive thrombocytosis likely secondary to Iron deficiency anemia Hyponatremia, resolved POA Hypoalbuminemia POA Obesity POA Nicotine dependence POA Active alcohol drinker POA PLAN: The patient remains admitted on the medical surgical floor. Right ankle cellulitis and abscess, s/p incision and drainage on 09/22/2024 POA Right ankle abscess +coagulase negative Staphylococcus aureus, Streptococcus group G Poor wound healing ulcer to right big toe, POA Leukocytosis, resolved POA Elevated acute phase reactants, ESR, Procalcitonin POA * Continue with 0.9% Na Cl 100 cc/hour and re-evaluate tomorrow. * Abscess Cultures showed beta-hemolytic Streptococcus group G, Coagulase negative staphylococcus aureus sensitive to penicillin and 1+ gram negative rods. Continue with current antibiotics IV Zosyn and vancomycin. * Monitor for febrile episodes. * Continue with Iodosorb daily for wound care per shake loader recommendations. * Follow up with Infectious Disease recommendations. Possible right great toe osteomyelitis, per MRI 09/20/2024 * The shake loader discussed that the patient will need an amputation of the hallux; however, the patient does not want to proceed with the amputation and instead wants to try a course of antibiotics. Uncontrolled type 2 diabetes mellitus POA * Recent blood sugar level today is 158 * Continue with insulin sliding scale AC & HS with hypoglycemia protocol * Continue with consistent carb diet. Iron deficiency anemia * Iron 17, % Saturation 11.2, TIBC 151, start with IV Venofer 200 mg for 3 days. Nicotine dependence POA Active alcohol drinker POA * Counseled on smoking and alcohol use cessation DVT prophylaxis: Heparin 5000 IU q.12h GI prophylaxis: Famotidine 20 mg p.o. b.i.d. We will replace electrolytes as needed per protocol P.r.n. medications: * Zofran 4 mg q.6 for nausea/vomiting * [place] 5/325 2 tablets q.4 for severe pain (7-10) * [place] 5/325 tablet q.4 for moderate pain (4-6) * Lactulose 20 g b.i.d. for constipation * Tylenol 650 mg q.6 for fever and headaches. A.m. labs: CBC, BMP We are per currently pending Infectious Disease recommendations if the patient requires long-term IV antibiotics post discharge. The patient does not have insurance; therefore, case management assistance was requested yesterday and is currently being addressed. The plan was discussed with the patient. He verbalizes understanding. Further orders per hospitalization course. ATTESTATION BY PHYSICIAN I have seen and examined the patient. I reviewed the documentation, medical decision making, and treatment plan as noted by the resident provider above. I agree with the findings and plan of care. Nickolas Fraser MD, MANALI MD Sep 25, 2024 10:17
--- NOTE | 2024-09-25 11:43 | PN ---
INFECTIOUS DISEASE PROGRESS NOTE Date of Service: Sep 25, 2024 SUBJECTIVE: This is a 49 year old male patient who was seen seen and examined at bedside in room 311. Patient is status post Incision and drainage of the right ankle abscess on 09/22/2024. The right ankle preliminary intraoperative wound culture is growing Gram-negative rods. No fever, temperature is 98.1. We will continue vancomycin and Zosyn. PHYSICAL EXAM EYES: Anicteric. Pupils equal and reactive. HENT: No oral thrush seen, moist Oral mucosa NECK: Supple, no JVD or thyromegaly. LUNGS: Good air entry. No rales, no rhonchi. CARDIOVASCULAR: S1, S2 regular. No murmur heard. ABDOMEN: Soft, non tender, bowel sounds present, no organomegaly CENTRAL NERVOUS SYSTEM: Awake, alert, oriented x 3. SKIN: No rashes, no swelling. LYMPHATICS: No peripheral lymphadenopathy MUSCULOSKELETAL: No joint swelling, erythema or tenderness. EXTREMITIES: Right ankle cellulitis with abscess, status post I&D. Right great toe diabetic ulcer. BACK: No deformity, no pressure ulcer. GENITOURINARY: No dysuria or hematuria Vital Sign (Last 12 Hours) 09/25/24 09/25/24 09/25/24 00:24 04:40 08:40 Temp 98.1 98.4 98.1 Pulse 61 62 58 Resp 18 18 18 B/P (MAP) 130/66 129/59 118/62 Pulse Ox 95 96 97 O2 Delivery Room Air Room Air Room Air Intake & Output (last 24hrs) 09/24/24 09/24/24 09/25/24 15:00 23:00 07:00 Intake Total 480 ml 240 ml 350.0 ml Output Total 700 ml 500 ml Balance -220 ml -260 ml 350.0 ml LABS: Laboratory: Test 09/25/24 11:24 09/25/24 06:09 09/23/24 19:57 Range/Units Whole Blood Glucose 194 H 70-110 MG/DL White Blood Count 10.1 4.8-10.8 K/uL Red Blood Count 2.69 L 4.50-6.20 MIL/uL Hemoglobin 7.9 L 14.0-18.0 g/dL Hematocrit 23.5 L 42-54 % Mean Corpuscular Volume 87.4 79-99 fL Mean Corpuscular Hemoglobin 29.4 27.0-33.0 pg Mean Corpuscular Hemoglobin Concent 33.6 32.0-36.0 g/dL Red Cell Distribution Width 13.8 11.0-15.5 % Platelet Count 468 H 130-400 K/uL Mean Platelet Volume 9.6 7.5-10.5 fL Immature Granulocyte % (Auto) 1.1 H 0-1 % Neutrophils (%) (Auto) 66.9 40.0-77.0 % Lymphocytes (%) (Auto) 18.0 L 21.0-51.0 % Monocytes (%) (Auto) 9.1 3.0-13.0 % Eosinophils (%) (Auto) 3.9 0.0-8.0 % Basophils (%) (Auto) 1.0 0.0-5.0 % Neutrophils # (Auto) 6.8 1.8-7.7 K/uL Lymphocytes # (Auto) 1.8 1.0-4.8 K/uL Monocytes # (Auto) 0.9 0.1-1.0 K/uL Eosinophils # (Auto) 0.39 0.00-0.70 K/uL Basophils # (Auto) 0.10 0.00-0.20 K/uL Absolute Immature Granulocyte (auto 0.11 0-1 K/uL Nucleated Red Blood Cells 0.0 0.0-0.19 % Sodium Level 135 L 136-145 mmol/L Potassium Level 4.1 3.5-5.1 mmol/L Chloride Level 100 L 101-111 mmol/L Carbon Dioxide Level 27 21-32 mmol/L Blood Urea Nitrogen 9 7-18 mg/dL Creatinine 1.0 0.5-1.3 mg/dL Glomerular Filtration Rate Calc 93 >90 mL/min Random Glucose 158 H 70-105 mg/dL Total Calcium 8.5 8.5-10.1 mg/dL Iron Level 17 L 65-175 mcg/dL Total Iron Binding Capacity 151 L 250-450 mcg/dL Percent Iron Saturation 11.2 L 30-44 % Vitamin B12 Level 555 193-986 pg/mL Folic Acid (LAB) 12.40 2-20 ng/mL Vancomycin Level Trough 10.3 # 10.0-20.0 UG/ML DIAGNOSTIC/RADIOLOGY: RUN DATE: 09/25/24 [facility] [address] RUN TIME: [id number] [address], [place] [address] Department of Laboratories [facility] # [id number] Laboratory Technical Specialist: Nixon Sharma DO Specimen Report SPEC: [id number] PATIENT: VERNON LAMBERT [id number] (Continued) Procedure Result Brad Date-Time AEROBIC CULTURE Preliminary 09/25/24-1033 [facility]ONY DESCRIPTION: REPORT 1: 1+ GRAM NEGATIVE RODS IDENTIFICATION AND SENSITIVITY TO FOLLOW REPORT 2: SLOW-GROWER; RESULTS PENDING ASSESSMENT: Right great toe diabetic ulcer with osteomyelitis. Right ankle cellulitis and abscess status post incision and drainage on 09/22/2024. Infection with methicillin susceptible Staphylococcus aureus. Iron-deficiency anemia. Diabetes mellitus. Morbid obesity. PLAN: Continue vancomycin per pharmacy protocol. Continue Zosyn. Continue pain management. Continue wound care. Continue antidiabetic. We will follow up on the final intraoperative cultures results. This case was reviewed and discussed with my supervising physician and the above assessment and plan was formulated and agreed upon. ATTESTATION BY PHYSICIAN I have seen and examined the patient. I reviewed the documentation, medical decision making, and treatment plan as noted by the mid-level provider above. I agree with the findings and plan of care. YANI MENDOZA MD, [facility] Sep 25, 2024 11:43
[2024-09-25] MEDS: IRON sUCROse COMPLEX 100 MG/5 ML VIAL IV SCH (12:35)
--- NOTE | 2024-09-25 12:47 | NUR ---
[facility] Follow-up: Patient re-assessed by wound healing team. See wound assessment. Assessment and recommendations provided to primary nurse. Education provided. Wound care done. Addendum: 09/28/24 at 0919 by RILEY WEST RN RN/ Amended: Links added.
[2024-09-25] MEDS: VANCOMYCIN 1.75 GM/250 ML BAG 250 ML IV SCH (21:54)
[2024-09-26 00:34] VITALS: BP 97/50; PULSE 60; RESP 18; TEMP 98
[2024-09-26] MEDS ORDERED: HYDROcodone/APAP 5/325 1 TAB TABLET PO PRN (01:00)
[2024-09-26] MEDS: HYDROcodone/APAP 5/325 1 TAB TABLET PO PRN (01:07)
[2024-09-26 01:11] VITALS: BP 120/74; PULSE 57
[2024-09-26 04:12] VITALS: BP 122/54; PULSE 48; RESP 19; TEMP 98.1
[2024-09-26 05:50] LABS: BASOPHILS # (AUTO) 0.09 K/uL (0.00-0.20); EOSINOPHILS # (AUTO) 0.35 K/uL (0.00-0.70); EOSINOPHILS % (AUTO) 4.1 % (0.0-8.0); HEMATOCRIT 25.2 % (42-54); LYMPHOCYTES # (AUTO) 1.9 K/uL (1.0-4.8); LYMPHOCYTES % (AUTO) 22.1 % (21.0-51.0); MEAN CORPUSCULAR HEMOGLOBIN 29.6 pg (27.0-33.0); MEAN CORPUSCULAR HGB CONC 34.5 g/dL (32.0-36.0); MEAN CORPUSCULAR VOLUME 85.7 fL (79-99); MONOCYTES # (AUTO) 0.7 K/uL (0.1-1.0); MONOCYTES % (AUTO) 8.6 % (3.0-13.0); NEUTROPHILS # (AUTO) 5.4 K/uL (1.8-7.7); PLATELET COUNT (AUTO) 455 K/uL (130-400); RED BLOOD CELL COUNT(AUTO) 2.94 MIL/uL (4.50-6.20); WHITE BLOOD COUNT (AUTO) 8.6 K/uL (4.8-10.8)
[2024-09-26 06:00] LABS: CREATININE 0.8 mg/dL (0.5-1.3); MAGNESIUM 1.8 mg/dL (1.80-2.40); POTASSIUM 4.2 mmol/L (3.5-5.1)
[2024-09-26 08:00] VITALS: BP 125/61; PULSE 59; RESP 19; TEMP 97.9
--- NOTE | 2024-09-26 10:13 | PN ---
[facility] PROGRESS NOTE Date of Service: Sep 26, 2024 Time of Service: 10:13 SUBJECTIVE: The patient is a 49-year-old male with a past medical history of type 2 diabetes mellitus presented to the emergency department with swelling, redness, and pain in his right ankle. Additionally, he has had an ulcer on his right big toe for approximately nine months. The patient was seen at this facility on September 06 and prescribed antibiotics; however, he did not complete the course. While the pain slightly improved, the swelling worsened and extended further into the right ankle. In the emergency department, the patient was febrile, with a temperature of 100.9F. Laboratory results showed a white blood cell count of 12.8, an ESR greater than 150, sodium levels of 131, and glucose levels of 198. An X-ray of the right foot and ankle indicated soft tissue swelling consistent with cellulitis, but no evidence of bony destruction or osteomyelitis was found. The patient received fluid resuscitation and was started on vancomycin and Zosyn. He was admitted for further management. 09/21/24: The patient was examined at bedside today. He had a fever of 102F at 4:00 a.m. but was otherwise normotensive and breathing room air. He is complaining of swelling and pain in his right foot, which is very sensitive and extremely tender to the touch. The patient is a chronic smoker, consuming one pack of cigarettes every two days for the past 33 years, and he does not have an established primary care provider. 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 He denies any vomiting, abdominal pain, dizziness, or other complaints. Laboratory results show that his white blood cell count has increased to 13.5 from 12.8, with neutrophils at 79.1%. His hemoglobin is at 9.5 g/dL, and hematocrit is at 28.1%. Kidney function tests are normal, blood sugar is 140 mg/dL, and a procalcitonin level is 0.51. We will continue treatment with 0.9% NaCl at 100 cc/hour, Zosyn, and vancomycin. An MRI of foot without contrast is pending. Podiatry recommendations are available, Iodosorb daily for wound care. The 10 mL fluid over foot swelling was aspirated, which was sent for analysis by the Infectious Disease provider. Wound cultures, both aerobic and anaerobic, are pending. Further assessment and planning will be discussed below. 09/22/24 patient was seen and examined at bedside. Case discussed with RN and family by the bedside. He was still having a fever as high as 102 await podiatry intervention. 09/23/24: The patient was examined at the bedside today. He underwent incision and drainage yesterday by Dr. eLmos due to an abscess in the right ankle that reached the joint level, resulting in a septic joint. The procedure was completed without any complications. Recommendations include continuing local wound care and administering IV antibiotics daily along with a wound dressing. According to the nurse, the packing was completely soaked with pus, indicating that it is actively draining. An MRI revealed mild abnormal T1 and T2 signals in the left inferior distal phalanx of the first toe, suggesting early osteomyelitis. Dr. Lemos recommended amputation of the hallux; however, the patient prefers to avoid amputation and pursue a trial of antibiotics instead. He has been afebrile for over 24 hours, and his vital signs are stable. He reports slight improvement in his right ankle pain and denies any additional complaints or concerns. Laboratory results show a decrease in white blood cell count from 13.5 to 11.7, with hemoglobin at 8.9 and hematocrit at 25.5. Blood sugar levels have significantly improved, currently at 124, down from 198. Cultures have showed coagulase negative Staphylococcus, patient continues to receive vancomycin and Zosyn. He was told that the preoperative EKG was abnormal, and we will repeat the EKG today. We will continue with IV antibiotics and fluids. Follow up with Podiatry and adhere to Infectious Disease recommendations. Further assessment and planning are discussed below. 09/24/24: The patient was examined at the bedside today, and there were no acute episodes overnight. He is hemodynamically stable, afebrile for over 48 hours. The patient inquired about how long he should take to decide on amputation. It was explained that this decision would depend on improvements seen with IV antibiotics, his clinical symptoms, and follow-up radiology investigations. Declined amputation of hallux for now. The wound culture tested positive for beta-hemolytic Streptococcus group G, and coagulase negative staphylococcus which is susceptible to penicillin; sensitivity results are still pending. He is currently receiving Zosyn and vancomycin. He has not been ambulating since admission, as he is anxious about getting his symptoms back worse than before. Lab results show an improvement in white blood cell count, now at 9.8 (down from 11.7), hemoglobin at 8.3, sodium at 135, and BUN 9 and creatinine at 1.1, with no other significant abnormalities. We continue to conduct daily wound dressings and are awaiting recommendations from Infectious Disease regarding whether the patient requires long-term IV a ntibiotics post discharge. Further assessment and planning have been discussed below. 09/25/24: The patient was examined at the bedside today. He is status post right ankle incision and drainage day 4. He ambulated from his bed to the bathroom for a shower yesterday, which was the only time he walked since admission, and he reported that it was painful. However, he feels that the infection is improving and that the swelling is decreasing. He denies any other complaints. He is hemodynamically stable. Laboratory results showed a hemoglobin level that increased from 7.9 to 8.3 since yesterday, a WBC count of 10.1, and platelet counts that tyrel from 446 to 448. Other results include sodium at 135, chloride at 100, and normal kidney function with a BUN of 9 and creatinine of 1.0. His blood sugar levels have been in the 150s and 160s. The iron panel indicated a percentage saturation of 11.2, TIBC of 154, and iron level of 17. The abscess culture from September 21 showed beta-hemolytic group G Streptococcus and coagulase-negative Staphylococcus aureus. The culture from September 22 revealed 1+ Gram-negative rods, and sensitivity results are pending. The patient is currently on Zosyn and vancomycin. We will start IV Venofer to address iron-deficiency anemia. Daily wound dressings will be performed, and we will follow Infectious Disease recommendations for further management. 09/26/24: The patient was examined at bedside and was lying comfortably. He walked a little yesterday from the bedroom to the bathroom and reported an improvement in his pain. The abscess culture from September 21 showed beta-hemolytic group G Streptococcus and coagulase-negative Staphylococcus aureus. Cultures taken on September 22 showed the presence of MDR ESBL Klebsiella pneumoniae. Lab results indicate that hemoglobin improved to 8.7 from 7.9 yesterday after starting with IV Venofer, while platelets slightly decreased to 455 from 468. Kidney function is normal, and the rest of the lab results are unremarkable. Continue with daily wound dressings. We are waiting for recommendations from Infectious Disease regarding the continuation of IV antibiotics. Further assessments and the plan are discussed below. REVIEW OF SYSTEMS CONSTITUTIONAL: No fever, chills, or night sweats. No unintentional weight loss reported. NEUROLOGICAL: Denies headache, amaurosis fugax, motor weakness, sensory deficit, vertigo/spinning sensation, gait abnormalities, or tremors. ENT: No hearing loss, otalgia, otorrhea, rhinitis, rhinorrhea, hoarseness, or sore throat. CARDIOVASCULAR: Denies any exertional angina, dyspnea on exertion, orthopnea, paroxysmal nocturnal dyspnea, palpitations, life-threatening arrhythmias, claudication. PULMONARY: Denies any shortness of breath, cough, phlegm/sputum, hemoptysis, pleuritic chest pain. SLEEP: Denies morning headaches, daytime somnolence or napping. Denies difficulty falling asleep, staying asleep, waking from sleep. Denies knowledge of snoring. GASTROINTESTINAL: Denies any type of dysphagia to either liquids or solids. Denies nausea, vomiting, pyrosis, early satiety, abdominal pain, diarrhea, constipation, or changes in stool consistency or caliber. Denies coffee-ground emesis, hematemesis, hematochezia, or melanotic stools. GENITOURINARY: Denies frequency, urgency, nocturia, hematuria or incontinence (Storage/Irritative symptoms.) Low urinary stream, straining to void, urinary intermittency or hesitancy, splitting of the voiding stream, terminal dribbling. ENDOCRINOLOGIC: Denies polyuria, polydipsia, polyphagia or heat/cold intolerances. HEMATOLOGIC: Denies thrombophilia/previous clots, or coagulopathy/bleeding d isorders. ONCOLOGIC: Denies personal history of malignancy. DERMATOLOGIC: Complaints of right ankle and foot swelling pain, dressing present over right foot, Denies rashes or pruritus. PSYCHIATRIC: Denies any suicidal or homicidal ideation. Denies hallucinations. PHYSICAL EXAM GENERAL APPEARANCE: The patient is awake, alert, and oriented, in no acute cardiopulmonary distress. NEUROLOGICAL: Cranial nerves II-XII grossly intact. Motor is 5/5 in bilateral upper and lower extremities proximal to distal. No sensory deficits. HEENT: Face is symmetric. Pupils are equal and reactive. Extraocular movements are intact. NECK: Supple. No JVD. No thyromegaly. No submental, submandibular, pre- /postauricular, occipital or supraclavicular lymphadenopathy. CHEST: Normal chest expansion. No Telemetry. LUNGS: Absence of any rales, rhonchi or any wheezing. CARDIOVASCULAR: Regular. S1 and S2 normal. No appreciable rubs, murmurs or gallops. ABDOMEN: Soft, nontender, and nondistended. There is no rebound, voluntary guarding, or rigidity. : Deferred. No Newman. EXTREMITIES: Incision and drainage on the lateral portion of the right ankle, with packing in placed SKIN: Poor healing wound ulcer to right big toe Vital Signs (last 8hr) Date Time Temp Pulse Resp B/P (MAP) Pulse Ox O2 Delivery O2 Flow Rate FiO2 09/26/24 08:00 97.9 59 19 125/61 97 Room Air 21 09/26/24 04:12 98.1 48 19 122/54 97 Room Air LABS: Laboratory: Test 09/26/24 05:43 09/26/24 05:16 09/25/24 20:10 09/25/24 06:09 Range/Units Whole Blood Glucose 128 H 70-110 MG/DL White Blood Count 8.6 4.8-10.8 K/uL Red Blood Count 2.94 L 4.50-6.20 MIL/uL Hemoglobin 8.7 L 14.0-18.0 g/dL Hematocrit 25.2 L 42-54 % Mean Corpuscular Volume 85.7 79-99 fL Mean Corpuscular Hemoglobin 29.6 27.0-33.0 pg Mean Corpuscular Hemoglobin Concent 34.5 32.0-36.0 g/dL Red Cell Distribution Width 14.0 11.0-15.5 % Platelet Count 455 H 130-400 K/uL Mean Platelet Volume 9.5 7.5-10.5 fL Immature Granulocyte % (Auto) 1.2 H 0-1 % Neutrophils (%) (Auto) 63.0 40.0-77.0 % Lymphocytes (%) (Auto) 22.1 21.0-51.0 % Monocytes (%) (Auto) 8.6 3.0-13.0 % Eosinophils (%) (Auto) 4.1 0.0-8.0 % Basophils (%) (Auto) 1.0 0.0-5.0 % Neutrophils # (Auto) 5.4 1.8-7.7 K/uL Lymphocytes # (Auto) 1.9 1.0-4.8 K/uL Monocytes # (Auto) 0.7 0.1-1.0 K/uL Eosinophils # (Auto) 0.35 0.00-0.70 K/uL Basophils # (Auto) 0.09 0.00-0.20 K/uL Absolute Immature Granulocyte (auto 0.10 0-1 K/uL Nucleated Red Blood Cells 0.0 0.0-0.19 % Sodium Level 135 L 136-145 mmol/L Potassium Level 4.2 3.5-5.1 mmol/L Chloride Level 100 L 101-111 mmol/L Carbon Dioxide Level 27 21-32 mmol/L Blood Urea Nitrogen 8 7-18 mg/dL Creatinine 0.8 0.5-1.3 mg/dL Glomerular Filtration Rate Calc 110 >90 mL/min Random Glucose 136 H 70-105 mg/dL Total Calcium 8.8 8.5-10.1 mg/dL Magnesium Level 1.80 1.80-2.40 mg/dL Vancomycin Level Trough 9.2 L 10.0-20.0 UG/ML Iron Level 17 L 65-175 mcg/dL Total Iron Binding Capacity 151 L 250-450 mcg/dL Percent Iron Saturation 11.2 L 30-44 % Vitamin B12 Level 555 193-986 pg/mL Folic Acid (LAB) 12.40 2-20 ng/mL Current Medications Medications (Trade) Dose Ordered Sig/Jennifer Route PRN Reason Start Time Stop Time Status Last Admin Dose Admin Acetaminophen (TYLenol 325MG TAB) 650 mg Q6H PRN PO FEVER/HEADACHE 09/21/24 06:30 10/21/24 06:29 09/21/24 16:26 650 MG Acetaminophen/ Hydrocodone Bitart (NORco 5/325MG) 1 tab Q4H PRN PO MODERATE PAIN (4-6) 09/26/24 01:00 10/01/24 00:59 Acetaminophen/ Hydrocodone Bitart (NORco 5/325MG) 1 tab Q4H PRN PO MODERATE PAIN (4-6) 09/20/24 23:00 09/25/24 22:59 DC 09/21/24 08:50 1 TAB Acetaminophen/ Hydrocodone Bitart (NORco 5/325MG) 2 tab Q4H PRN PO SEVERE PAIN (7-10) 09/26/24 01:00 10/01/24 00:59 09/26/24 01:07 2 TAB Acetaminophen/ Hydrocodone Bitart (NORco 5/325MG) 2 tab Q4H PRN PO SEVERE PAIN (7-10) 09/20/24 23:00 09/25/24 22:59 DC 09/25/24 20:40 2 TAB Cadexomer Iodine (Iodosorb Gel 40gm) 1 APPL DAILY TP 09/21/24 12:00 10/21/24 11:59 09/26/24 09:21 1 APPL Dextrose (D50w) 50 ml AD PRN IV HYPOGLYCEMIA PROTOCOL 09/20/24 23:00 10/20/24 22:59 Famotidine (Pepcid 20mg Tab) 20 mg BID PO 09/21/24 09:00 09/20/24 22:56 DC Famotidine (Pepcid 20mg Tab) 20 mg BID PO 09/21/24 09:00 10/21/24 08:59 09/26/24 09:21 20 MG Glucagon (Glucagon 1mg Kit) 1 mg AD PRN IM HYPOGLYCEMIA PROTOCOL 09/20/24 23:00 10/20/24 22:59 Heparin Sodium (Porcine) (HEParin 5,000 UNIT VIAL) 5,000 unit Q12H SQ 09/21/24 12:30 10/21/24 12:29 09/26/24 01:03 5,000 UNIT Hydromorphone HCl (DiLAUDid 0.5MG INJ) 0.5 mg Q6H PRN IVP SEVERE PAIN (7-10) 09/22/24 15:30 09/24/24 07:49 DC 09/23/24 22:16 0.5 MG Insulin Human Regular (humuLIN R 100 UNIT/ML 3ML) INSULIN SLIDING SCAL... ACHS SQ 09/21/24 07:30 10/21/24 07:29 09/25/24 20:46 2 UNIT Iron Sucrose (VenoFER) 200 mg DAILY IV 09/25/24 13:00 09/27/24 15:00 09/26/24 09:21 200 MG Lactulose (Constulose 20gm/ 30ml Udcup) 20 gm BID PRN PO CONSTIPATION 09/20/24 23:00 10/20/24 22:59 09/24/24 21:01 20 GM Magnesium Sulfate 50 ml @ 0 mls/hr PROTOCOL PRN IV OTHER [SEE ORDER COMMENTS] 09/20/24 23:00 10/20/24 22:59 Ondansetron HCl (zoFRAN 4MG INJ) 4 mg Q6H PRN IV NAUSEA/VOMITING 09/20/24 23:00 10/20/24 22:59 Piperacillin Sod/ Tazobactam Sod 50 ml @ 12.5 mls/hr ZOSY8 IV 09/21/24 05:00 10/01/24 04:59 09/26/24 05:21 12.5 MLS/HR Piperacillin Sod/ Tazobactam Sod 50 ml @ 200 mls/hr STAT STAT IVPB 09/20/24 20:24 09/20/24 20:38 DC 09/20/24 21:04 200 MLS/HR Potassium Chloride 100 ml @ 100 mls/hr AD PRN IV POTASSIUM PROTOCOL 09/20/24 23:00 10/20/24 22:59 Potassium Chloride (K-Dur/Klor-Con 20meq) 20 meq AD PRN PO POTASSIUM PROTOCOL 09/20/24 23:00 10/20/24 22:59 09/22/24 08:07 20 MEQ Potassium Chloride (KCl 10% Elixir 20meq/15ml) 20 meq AD PRN PO POTASSIUM PROTOCOL 09/20/24 23:00 10/20/24 22:59 Sodium Chloride 1,000 ml @ 100 mls/hr Q10H IV 09/20/24 23:00 10/20/24 22:59 09/24/24 03:36 100 MLS/HR Vancomycin HCl 250 ml @ 125 mls/hr ONCE IV 09/20/24 23:00 09/20/24 23:12 DC Vancomycin HCl 250 ml @ 125 mls/hr Q12H IV 09/25/24 21:00 10/05/24 20:59 09/26/24 09:21 125 MLS/HR Vancomycin HCl 250 ml @ 125 mls/hr Q12H IV 09/21/24 09:00 09/25/24 20:52 DC 09/25/24 08:12 125 MLS/HR Vancomycin HCl (Vancomycin Protocol) 1 each AD IV 09/20/24 23:30 10/04/24 23:29 DIAGNOSTICS / RADIOLOGY: [facility] [address] [id number] IMAGING REPORT Signed PATIENT: VERNON LAMBERT MR#: [id number] : 1975 SEX: M AGE: 49 LOCATION: [facility] ORDER 53 STATUS: ADM IN REPORT#: [id number] SERVICE 41 REASON: right foot cellulitis ORDERING PHYSICIAN: ISABEL AGEE GRILL PREP COOK PROCEDURE: FT RT WO - MR FOOT RIGHT WO MR FOOT RIGHT WO HISTORY: right foot cellulitis TECHNIQUE: Multiplanar multisequence MRI of the right mid/forefoot was performed without contrast. FINDINGS: Diffuse soft tissue swelling suggesting cellulitis/myositis. Study degraded by motion. Soft tissue ulcer seen in the first toe. Mild abnormal T1 and T2 signals in the distal phalanx of the first toe suggesting early osteomyelitis.. IMPRESSION: 1. Diffuse soft tissue swelling suggesting cellulitis/myositis. 2. Study degraded by motion. 3. Soft tissue ulcer seen in the first toe. 4. Mild abnormal T1 and T2 signals in the inferior distal phalanx of the first toe suggesting early osteomyelitis.. DICTATED BY: ORQUIDEA BERUMEN MD DATE: 09/22/24905 ELECTRONICALLY SIGNED BY: ORQUIDEA BERUMEN MD DATE: 09/22/24912 RUN DATE: 09/26/24 [facility] PAGE 2 RUN TIME: [id number] [address] Department of Laboratories [facility] # [id number] Wood Handler: Nixon Sharma DO Specimen Report SPEC: [id number] PATIENT: VERNON LAMBERT [id number] (Continued) Procedure Result Brad Date-Time ANAEROBIC CULTURE Preliminary 09/26/24-0842 MRL COLONY DESCRIPTION: REPORT 1: NO ANAEROBES AT 16-23 HOURS; STUDIES TO CONTINUE REPORT 2: NO ANAEROBES AT 36-47 HOURS; STUDIES TO CONTINUE Test(s) performed by: [facility] [address] [facility] [place] [address] AEROBIC CULTURE Preliminary 09/26/24-0842 MRL EXTENDED SPECTRUM BETA-LACTAMASE ORGANISM IDENTIFIED. CRITICAL RESULT WAS CALLED BY VERNON RIVERA ON 09/26/24 AT 0839. CRITICAL VALUES WERE READ BACK AND ACKNOWLEDGED BY JAYME MTZ ( [facility] ) COLONY DESCRIPTION: REPORT 1: 1+ GRAM NEGATIVE RODS IDENTIFICATION AND SENSITIVITY TO FOLLOW REPORT 2: SLOW-GROWER; RESULTS PENDING COMMENTS(R): ESBL KLEBSIELLA PNEUMONIAE K PNEUMO M.I.C. RX --------- ---- AZTREONAM <=4 R* CEFAZOLIN >16 R* CEFTAZIDIME <=1 R* CEFTAZIDIME/AVIBACTAM <=8 S CEFTRIAXONE >2 ESBL GENTAMICIN <=2 S LEVOFLOXACIN <=0.5 S AMPICILLIN/SULBACTAM 16/8 I MEROPENEM <=1 S PIPERACILLIN/TAZOBACTAM <=8 S TRIMETHOPRIM/SUFLAMETHOXAZOLE >2/38 R KLEBSIELLA PNEUMONIAE: NEGATIVE/URINE COMBO 62 Lab Alert - ESBL (Extended-Spectrum Beta-Lactamase queen producer) Procedure Result Brad Date-Time ANAEROBIC CULTURE Final 09/25/24-1018 [facility] COLONY DESCRIPTION: REPORT 1: NO ANAEROBES AT 24-35 HOURS; STUDIES TO CONTINUE REPORT 2: NO ANAEROBES AT 48-59 HOURS; STUDIES TO CONTINUE REPORT 3: NO ANAEROBES AT 72-96 HOURS Test(s) performed by: [facility] [address] [place] [address] AEROBIC CULTURE Final 09/24/24-0801 [facility] COLONY DESCRIPTION: REPORT 1: 1+ SKIN JULIANNE ; STUDIES TO CONTINUE COAGULASE NEGATIVE STAPHYLOCOCCUS REPORT 2: 1+ GRAM POSITIVE COCCI IN CHAINS IDENTIFICATION TO FOLLOW BETA HEMOLYTIC STREPTOCOCCUS GROUP G NO FURTHER WORK-UP DONE COMMENT: BETA STREPTOCOCCUS REMAIN SUSCEPTIBLE TO PENICILLIN COMMENT: NO FURTHER WORK-UP STREPTOCOCCUS GROUP G @ [facility] Test Performed at: [facility] [address]ith[address], [place], [place] Medical Wool Sorter: Sukh Alicea D.O. RUN DATE: 09/24/24 [facility] PAGE 1 RUN TIME: 0735 [address] [address], [place] [address] Department of Laboratories CLIA # [id number] Wood Handler: Nixon Sharma DO Specimen Report PATIENT: VERNON LAMBERT ACCT: [id number] LOC: [facility] U: [id number] AGE/SX: 49/M ROOM: [facility] RE09/20/[address]: TARAS CARR MD : 1975 BED: 1 DIS: STATUS: ADM IN TLOC: SPEC: [id number] SHEILA: 09/21/24 STATUS: COMP REQ: [id number] RECD: 09/21/[address]: REINA SEAMANP SOURCE: FOOT ENTR: 09/20/24-[address]: JENNIFER SPDESC: FOOT RIGHT SELF,REFERRAL ORDERED: ASTRID CULTURE, AEROBIC CULTURE ------ ------ Procedure Result Brad Date-Time ANAEROBIC CULTURE Final 09/24/24-529 [facility] COLONY DESCRIPTION: REPORT 1: NO ANAEROBES AT 24-35 HOURS; STUDIES TO CONTINUE REPORT 2: NO ANAEROBES AT 48-59 HOURS; STUDIES TO CONTINUE REPORT 3: NO ANAEROBES AT 72-96 HOURS Test(s) performed by: [facility] [address] [place] [address] AEROBIC CULTURE Final 09/24/24-734 [facility] COLONY DESCRIPTION: REPORT 1: 1+ SKIN JULIANNE ; STUDIES TO CONTINUE COAGULASE NEGATIVE STAPHYLOCOCCUS REPORT 2: 1+ GRAM POSITIVE COCCI IN CLUSTERS STAPHYLOCOCCUS AUREUS SENSITIVITY TO FOLLOW REPORT 3: NO FURTHER WORK-UP DONE STAPHYLOCOCCUS AUREUS S. AUREUS M.I.C. RX --------- ---- ERYTHROMYCIN <=0.5 S GENTAMICIN <=4 S LEVOFLOXACIN <=1 S VANCOMYCIN 1 S OXACILLIN DILMA 1 S RIFAMPIN <=1 S PENICILLIN >8 Diego TRIMETHOPRIM/SUFLAMETHOXAZOLE <=0.5/9.5 S @ [facility] Test Performed at: [facility] [address] [place], [place], [place] Medical Wool Sorter: Sukh Dolz, D.O. ASSESSMENT: Right ankle cellulitis and abscess, s/p incision and drainage on 09/22/2024 POA Right ankle abscess +coagulase negative Staphylococcus aureus, Streptococcus group G, ESBL klebsiella pneumoniae Poor wound healing ulcer to right big toe, POA Possible right great toe osteomyelitis, per MRI 09/20/2024 Leukocytosis, resolved POA Elevated acute phase reactants, ESR, Procalcitonin POA Uncontrolled type 2 diabetes mellitus POA Iron deficiency anemia Reactive thrombocytosis likely secondary to Iron deficiency anemia, improving Hyponatremia, resolved POA Hypoalbuminemia POA Obesity POA Nicotine dependence POA Active alcohol drinker POA PLAN: The patient remains admitted on the medical surgical floor. Right ankle cellulitis and abscess, s/p incision and drainage on 09/22/2024 POA Right ankle abscess +coagulase negative Staphylococcus aureus, Streptococcus group G, ESBL klebsiella pneumoniae Poor wound healing ulcer to right big toe, POA Possible right great toe osteomyelitis, per MRI 09/20/2024 Leukocytosis, resolved POA Elevated acute phase reactants, ESR, Procalcitonin POA * Continue with 0.9% Na Cl 100 cc/hour and re-evaluate tomorrow. * Abscess Cultures showed beta-hemolytic Streptococcus group G, Coagulase negative staphylococcus aureus sensitive to penicillin and ESBL klebsiella pneumoniae. Continue with current antibiotics IV Zosyn and vancomycin. * Monitor for febrile episodes. * Continue with Iodosorb daily for wound care per patient care director recommendations. * Follow up with Infectious Disease recommendations. Possible right great toe osteomyelitis, per MRI 09/20/2024 * The patient care director discussed that the patient will need an amputation of the hallux; however, the patient does not want to proceed with the amputation and instead wants to try a course of antibiotics. Uncontrolled type 2 diabetes mellitus POA * Recent blood sugar level today is 136 * Continue with insulin sliding scale AC & HS with hypoglycemia protocol * Continue with consistent carb diet. Iron deficiency anemia * Iron 17, % Saturation 11.2, TIBC 151 on 09/25, hemoglobin improved to 8 0.7 from 7.9, continue with IV Venofer 200 mg 2/3 days. Nicotine dependence POA Active alcohol drinker POA * Counseled on smoking and alcohol use cessation DVT prophylaxis: Heparin 5000 IU q.12h GI prophylaxis: Famotidine 20 mg p.o. b.i.d. We will replace electrolytes as needed per protocol P.r.n. medications: * Zofran 4 mg q.6 for nausea/vomiting * [place] 5/325 2 tablets q.4 for severe pain (7-10) * [place] 5/325 1 tablet q.4 for moderate pain (4-6) * Lactulose 20 g b.i.d. for constipation * Tylenol 650 mg q.6 for fever and headaches. A.m. labs: CBC, BMP We are currently pending Infectious Disease recommendations if the patient requires long-term IV antibiotics post discharge. The patient does not have insurance; therefore, case management is currently assisting. The plan was discussed with the patient. He verbalizes understanding. Further orders per hospitalization course. ATTESTATION BY PHYSICIAN I have seen and examined the patient. I reviewed the documentation, medical decision making, and treatment plan as noted by the resident provider above. I agree with the findings and plan of care. Nickolas Fraser MD, MANALI MD Sep 26, 2024 10:13
[2024-09-26 12:00] VITALS: BP 130/66; PULSE 60; RESP 20; TEMP 98.5
--- NOTE | 2024-09-26 15:10 | DS ---
Discharge Summary Java Development Manager(s): Dr. Ethan Fisher, Infectious disease Dr. John Lemos, Podiatry Procedure(s): [place] [address] [address] IMAGING REPORT Signed PATIENT: VERNON LAMBERT MR#: [id number] : 1975 SEX: M AGE: 49 LOCATION: ED ORDER 28 STATUS: REG ER REPORT#: [id number] SERVICE 23 REASON: r/o osteomyelitis, swelling, cellulitis ORDERING PHYSICIAN: REINA SEAMAN PROCEDURE: FT 3VW RT - FOOT COMP 3+VWS RT Exam Type: FOOT COMP 3+VWS RT, ANKLE COMP 3VWS RT Clinical Information: r/o osteomyelitis, swelling, cellulitis Comparison: None Findings and impression: Soft tissue swelling of the ankle consistent with cellulitis or sprain. No fractures or dislocations. Calcaneal spurs. No bone destruction to suggest osteomyelitis DICTATED BY: SHARDA SAMUEL MD DATE: 09/20/242107 ELECTRONICALLY SIGNED BY: SHARDA SAMUEL MD DATE: 09/20/242111 [address] [address] IMAGING REPORT Signed PATIENT: VERNON LAMBERT MR#: [id number] : 1975 SEX: M AGE: 49 LOCATION: ED ORDER 51 STATUS: REG ER REPORT#: [id number] SERVICE 50 REASON: swelling ORDERING PHYSICIAN: REINA SEAMAN PROCEDURE: EPR1OWG - ANKLE COMP 3VWS RT Exam Type: FOOT COMP 3+VWS RT, ANKLE COMP 3VWS RT Clinical Information: r/o osteomyelitis, swelling, cellulitis Comparison: None Findings and impression: Soft tissue swelling of the ankle consistent with cellulitis or sprain. No fractures or dislocations. Calcaneal spurs. No bone destruction to suggest osteomyelitis DICTATED BY: SHARDA SAMUEL MD DATE: 09/20/242107 ELECTRONICALLY SIGNED BY: SHARDA SAMUEL MD DATE: 09/20/242111 [place] [address] [address] IMAGING REPORT Signed PATIENT: VERNON LAMBERT MR#: [id number] : 1975 SEX: M AGE: 49 LOCATION: 3BH ORDER 225 STATUS: ADM IN REPORT#: [id number] SERVICE 41 REASON: right foot cellulitis ORDERING PHYSICIAN: ISABEL AGEE PROCEDURE: FT RT WO - MR FOOT RIGHT WO MR FOOT RIGHT WO HISTORY: right foot cellulitis TECHNIQUE: Multiplanar multisequence MRI of the right mid/forefoot was performed without contrast. FINDINGS: Diffuse soft tissue swelling suggesting cellulitis/myositis. Study degraded by motion. Soft tissue ulcer seen in the first toe. Mild abnormal T1 and T2 signals in the distal phalanx of the first toe suggesting early osteomyelitis.. IMPRESSION: 1. Diffuse soft tissue swelling suggesting cellulitis/myositis. 2. Study degraded by motion. 3. Soft tissue ulcer seen in the first toe. 4. Mild abnormal T1 and T2 signals in the inferior distal phalanx of the first toe suggesting early osteomyelitis.. DICTATED BY: ORQUIDEA BERUMEN MD DATE: 09/22/24905 ELECTRONICALLY SIGNED BY: ORQUIDEA BEURMEN MD DATE: 09/22/24 0994 [place] [address] [id number] IMAGING REPORT Signed PATIENT: VERNON LAMBERT MR#: [id number] : 1975 SEX: M AGE: 49 LOCATION: 3BH ORDER 0857 STATUS: ADM IN REPORT#: [id number] SERVICE 0855 REASON: Shortness of breath on exertion, leukocytosis ORDERING PHYSICIAN: VIRI JACKSON MD PROCEDURE: CXR1VW - CHEST 1VW Exam Type: CHEST 1VW Clinical Information: Shortness of breath on exertion, leukocytosis Comparison: None Findings: The lungs are clear of infiltrates. The heart is normal in size. The bony and soft tissue structures of the chest are unremarkable. Impression: Clear lungs. DICTATED BY: SHARDA SAMUEL MD DATE: 09/21/24944 ELECTRONICALLY SIGNED BY: SHARDA SAMUEL MD DATE: 09/21/2454 Microbiology RUN DATE: 09/25/24 [facility] PAGE 1 RUN TIME: [address] of Laboratories CLIA # [id number] Family Preservation Worker: Nixon Sharma DO Specimen Report PATIENT: VERNON LAMBERT ACCT: [id number] LOC: [facility] U: [id number] AGE/SX: 49/M ROOM: [facility] RE09/20/[address]: TARAS ACRR MD : 1975 BED: 1 DIS: STATUS: ADM IN TLOC: SPEC: [id number] SHEILA: 09/20/24-2044 STATUS: COMP REQ: [id number] RECD: 09/20/[address]: MEAGAN LOMAX MD SOURCE: BLOOD ENTR: 09/20/24-[address]: NONE SPDESC: SELF,REFERRAL ORDERED: BLOOD CULTURE COMMENTS: What is the Source? BLOOD Procedure Result Brad Date-Time BLOOD CULT Final 09/25/24-2103 NO GROWTH AFTER 5 DAYS RUN DATE: 09/24/24 [facility] PAGE 1 RUN TIME: [address] [address] Department of Laboratories CLIA # [id number] Family Preservation Worker: Nixon Sharma DO Specimen Report PATIENT: VERNON LAMBERT ACCT: [id number] LOC: [facility] U: [id number] AGE/SX: 49/M ROOM: 311 RE09/20/[address]: TARAS CARR MD : 1975 BED: 1 DIS: STATUS: ADM IN TLOC: SPEC: [id number] SHEILA: 09/21/24 STATUS: COMP REQ: [id number] RECD: 09/21/24 [facility] DR: REINA SEAMAN SOURCE: FOOT ENTR: 09/20/24 MICHELLE GARRIDO: NONE SPDESC: FOOT RIGHT SELF,REFERRAL ORDERED: ASTRID CULTURE, AEROBIC CULTURE Procedure Result Brad Date-Time ANAEROBIC CULTURE Final 09/24/24-0446 [facility] DESCRIPTION: REPORT 1: NO ANAEROBES AT 24-35 HOURS; STUDIES TO CONTINUE REPORT 2: NO ANAEROBES AT 48-59 HOURS; STUDIES TO CONTINUE REPORT 3: NO ANAEROBES AT 72-96 HOURS Test(s) performed by: [facility] [address] [place] [address] AEROBIC CULTURE Final 09/24/24-9005 [facility] DESCRIPTION: REPORT 1: 1+ SKIN JULIANNE ; STUDIES TO CONTINUE COAGULASE NEGATIVE STAPHYLOCOCCUS REPORT 2: 1+ GRAM POSITIVE COCCI IN CLUSTERS STAPHYLOCOCCUS AUREUS SENSITIVITY TO FOLLOW REPORT 3: NO FURTHER WORK-UP DONE STAPHYLOCOCCUS AUREUS S. AUREUS M.I.C. RX --------- ---- ERYTHROMYCIN <=0.5 S GENTAMICIN <=4 S LEVOFLOXACIN <=1 S VANCOMYCIN 1 S OXACILLIN DILMA 1 S RIFAMPIN <=1 S PENICILLIN >8 Diego TRIMETHOPRIM/SUFLAMETHOXAZOLE <=0.5/9.5 S @ [facility] Test Performed at: [facility] [address], [place], [place] Medical Instructor Psychiatric Aide: Sukh Alicea D.O. RUN DATE: 09/25/24 [facility] PAGE 1 RUN TIME: 5131 0254 [place] [address] Department of Laboratories CLIA # [id number] Family Preservation Worker: Nixon Sharma DO Specimen Report PATIENT: VERNON LAMBERT ACCT: [id number] LOC: [facility] U: [id number] AGE/SX: 49/M ROOM: 311 RE09/20/[address]: TARAS CARR MD : 1975 BED: 1 DIS: STATUS: ADM IN TLOC: --------- --- SPEC: [id number] SHEILA: 09/21/24 STATUS: ALINA REQ: [id number] RECD: 09/21/24 [facility] DR: ETHAN MENDOZA MD SOURCE: LEG ENTR: 09/21/24 [facility] DR: TARAS CARR MD SPDESC: ABSCESS SELF,REFERRAL JOHN LEMOS DPM ORDERED: ASTRID CULTURE, AEROBIC CULTURE COMMENTS: Has specimen been collected/obtained? Y Has specimen been collected/obtained? Y Has specimen been collected/obtained? Y Has specimen been collected/obtained? Y Has specimen been collected/obtained? Y Has specimen been collected/obtained? Y Has specimen been collected/obtained? Y Has specimen been collected/obtained? Y Has specimen been collected/obtained? Y Has specimen been collected/obtained? Y Has specimen been collected/obtained? Y Procedure Result Brad Date-Time ANAEROBIC CULTURE Final 09/25/24-1019 [facility] DESCRIPTION: REPORT 1: NO ANAEROBES AT 24-35 HOURS; STUDIES TO CONTINUE REPORT 2: NO ANAEROBES AT 48-59 HOURS; STUDIES TO CONTINUE REPORT 3: NO ANAEROBES AT 72-96 HOURS Test(s) performed by: [facility] [address] [place] [place] [address] AEROBIC CULTURE Final 09/24/24-01 [facility] DESCRIPTION: REPORT 1: 1+ SKIN JULIANNE ; STUDIES TO CONTINUE COAGULASE NEGATIVE STAPHYLOCOCCUS REPORT 2: 1+ GRAM POSITIVE COCCI IN CHAINS IDENTIFICATION TO FOLLOW BETA HEMOLYTIC STREPTOCOCCUS GROUP G NO FURTHER WORK-UP DONE COMMENT: BETA STREPTOCOCCUS REMAIN SUSCEPTIBLE TO PENICILLIN COMMENT: NO FURTHER WORK-UP STREPTOCOCCUS GROUP G @ [facility] Test Performed at: [facility] [address], [place], [place] Medical Instructor Psychiatric Aide: Sukh Alicea D.O. RUN DATE: 09/26/24 [facility] PAGE 2 RUN TIME: 0397 [address] [place] [address], [place] [address] Department of Laboratories [facility] # [id number] Family Preservation Worker: Nixon Sharma DO Specimen Report SPEC: [id number] PATIENT: VERNON LAMBERT [id number] (Continued) Procedure Result Brad Date-Time ANAEROBIC CULTURE Final 09/26/24-1048 [facility] DESCRIPTION: REPORT 1: NO ANAEROBES AT 16-23 HOURS; STUDIES TO CONTINUE REPORT 2: NO ANAEROBES AT 36-47 HOURS; STUDIES TO CONTINUE REPORT 3: NO ANAEROBES AT 60 TO 71 HOURS Test(s) performed by: [facility] [address] [place] [address] AEROBIC CULTURE Final 09/26/24-8 [facility] EXTENDED SPECTRUM BETA-LACTAMASE ORGANISM IDENTIFIED. CRITICAL RESULT WAS CALLED BY VERNON RIVERA ON 09/26/24 AT 0839. CRITICAL VALUES WERE READ BACK AND ACKNOWLEDGED BY JAYME MTZ ( [facility] COLONY DESCRIPTION: REPORT 1: 1+ GRAM NEGATIVE RODS IDENTIFICATION AND SENSITIVITY TO FOLLOW REPORT 2: SLOW-GROWER; RESULTS PENDING REPORT 3: NO FURTHER WORK-UP DONE COMMENTS(R): ESBL COMMENTS(R): CONFIRMED BY REPEAT ANALYSIS KLEBSIELLA PNEUMONIAE K PNEUMO M.I.C. RX --------- ---- AZTREONAM <=4 R* CEFAZOLIN >16 R* CEFTAZIDIME <=1 R* CEFTAZIDIME/AVIBACTAM <=8 S CEFTRIAXONE >2 ESBL GENTAMICIN <=2 S LEVOFLOXACIN <=0.5 S AMPICILLIN/SULBACTAM 16/8 I MEROPENEM <=1 S PIPERACILLIN/TAZOBACTAM <=8 S TRIMETHOPRIM/SUFLAMETHOXAZOLE >2/38 R KLEBSIELLA PNEUMONIAE: NEGATIVE/URINE COMBO 62 Lab Alert - ESBL (Extended-Spectrum Beta-Lactamase producer assistant) @ [facility] Test Performed at: [facility] [address], [place], [place] Medical Instructor Psychiatric Aide: Sukh Alicea D.O. Assessment/Plan: ASSESSMENT: Right ankle cellulitis and abscess, s/p incision and drainage on 09/22/2024 POA Right ankle abscess +coagulase negative Staphylococcus aureus, Streptococcus group G, ESBL klebsiella pneumoniae Poor wound healing ulcer to right big toe, POA Possible right great toe osteomyelitis, per MRI 09/20/2024 Leukocytosis, resolved POA Elevated acute phase reactants, ESR, Procalcitonin POA Uncontrolled type 2 diabetes mellitus POA Iron deficiency anemia Reactive thrombocytosis likely secondary to Iron deficiency anemia, improving Hyponatremia, resolved POA Hypoalbuminemia POA Obesity POA Nicotine dependence POA Active alcohol drinker POA PLAN: The patient remains admitted on the medical surgical floor. Right ankle cellulitis and abscess, s/p incision and drainage on 09/22/2024 POA Right ankle abscess +coagulase negative Staphylococcus aureus, Streptococcus group G, ESBL klebsiella pneumoniae Poor wound healing ulcer to right big toe, POA Possible right great toe osteomyelitis, per MRI 09/20/2024 Leukocytosis, resolved POA Elevated acute phase reactants, ESR, Procalcitonin POA * Continue with 0.9% Na Cl 100 cc/hour and re-evaluate tomorrow. * Abscess Cultures showed beta-hemolytic Streptococcus group G, Coagulase negative staphylococcus aureus sensitive to penicillin and ESBL klebsiella pneumoniae. Continue with current antibiotics IV Zosyn and vancomycin. * Monitor for febrile episodes. * Continue with Iodosorb daily for wound care per service desk team lead recommendations. * Follow up with Infectious Disease recommendations. Possible right great toe osteomyelitis, per MRI 09/20/2024 * The service desk team lead discussed that the patient will need an amputation of the hallux; however, the patient does not want to proceed with the amputation and instead wants to try a course of antibiotics. Uncontrolled type 2 diabetes mellitus POA * Recent blood sugar level today is 136 * Continue with insulin sliding scale AC & HS with hypoglycemia protocol * Continue with consistent carb diet. Iron deficiency anemia * Iron 17, % Saturation 11.2, TIBC 151 on 09/25, hemoglobin improved to 8 0.7 from 7.9, continue with IV Venofer 200 mg 2/3 days. Nicotine dependence POA Active alcohol drinker POA * Counseled on smoking and alcohol use cessation DVT prophylaxis: Heparin 5000 IU q.12h GI prophylaxis: Famotidine 20 mg p.o. b.i.d. We will replace electrolytes as needed per protocol P.r.n. medications: * Zofran 4 mg q.6 for nausea/vomiting * O[place]ala 5/325 2 tablets q.4 for severe pain (7-10) * O[place]ala 5/325 1 tablet q.4 for moderate pain (4-6) * Lactulose 20 g b.i.d. for constipation * Tylenol 650 mg q.6 for fever and headaches. A.m. labs: CBC, BMP We are currently pending Infectious Disease recommendations if the patient requires long-term IV antibiotics post discharge. The patient does not have insurance; therefore, case management is currently assisting. The plan was discussed with the patient. He verbalizes understanding. Further orders per hospitalization course. Home Medications: Active Scripts Ketorolac Tromethamine (Ketorolac Tromethamine) 10 Mg Tablet, 1 TAB PO TID for pain for 5 Days, #15 TAB 0 Refills Prov:JOHN COLON 09/06/24 Clindamycin HCl (Clindamycin HCl) 300 Mg Capsule, 1 CAP PO QID for 10 Days, #40 CAP 0 Refills Prov:JOHN COLON 09/06/24 Discontinued Medications: Clindamycin HCl (Clindamycin HCl) 300 Mg Capsule 1 CAP PO QID for 10 Days, #40 CAP 0 Refills Ketorolac Tromethamine (Ketorolac Tromethamine) 10 Mg Tablet 1 TAB PO TID for pain for 5 Days, #15 TAB 0 Refills Time spent arranging discharge: 31-60 minutes ATTESTATION BY PHYSICIAN I have seen and examined the patient. I reviewed the documentation, medical decision making, and treatment plan as noted by the resident provider above. I agree with the findings and plan of care. Nickolas Fraser MD, MANALI MD Sep 26, 2024 15:10
[2024-09-26 16:00] VITALS: BP 135/76; PULSE 55; RESP 19; TEMP 97.6
--- NOTE | 2024-09-26 16:24 | PN ---
INFECTIOUS DISEASE PROGRESS NOTE Date of Service: Sep 26, 2024 SUBJECTIVE: This is a 49 year old male patient who was seen seen and examined at bedside in room 311. Patient is status post Incision and drainage of the right ankle abscess on 09/22/2024. The right ankle intraoperative wound culture came back positive for ESBL, Klebsiella pneumoniae. Patient is afebrile, temperature is 98.4. From Infectious Disease standpoint patient can be discharged on cephalexin 500 mg t.i.d. x 6 weeks and levofloxacin 750 mg p.o. daily x 6 weeks. Prescription was written. PHYSICAL EXAM EYES: Anicteric. Pupils equal and reactive. HENT: No oral thrush seen, moist Oral mucosa NECK: Supple, no JVD or thyromegaly. LUNGS: Good air entry. No rales, no rhonchi. CARDIOVASCULAR: S1, S2 regular. No murmur heard. ABDOMEN: Soft, non tender, bowel sounds present, no organomegaly CENTRAL NERVOUS SYSTEM: Awake, alert, oriented x 3. SKIN: No rashes, no swelling. LYMPHATICS: No peripheral lymphadenopathy MUSCULOSKELETAL: No joint swelling, erythema or tenderness. EXTREMITIES: Right ankle cellulitis with abscess, status post I&D. Right great toe diabetic ulcer. BACK: No deformity, no pressure ulcer. GENITOURINARY: No dysuria or hematuria Vital Sign (Last 12 Hours) 09/26/24 09/26/24 08:00 12:00 Temp 97.9 98.4 Pulse 59 60 Resp 19 20 B/P (MAP) 125/61 130/66 Pulse Ox 97 96 O2 Delivery Room Air Room Air FiO2 21 21 Intake & Output (last 24hrs) 09/25/24 09/25/24 09/26/24 14:59 22:59 06:59 Intake Total 480 ml Balance 480 ml LABS: Laboratory: Test 09/26/24 16:06 09/26/24 05:16 09/25/24 20:10 09/25/24 06:09 Range/Units Whole Blood Glucose 173 H 70-110 MG/DL Bedside Glucose Comment Notified Nurse White Blood Count 8.6 4.8-10.8 K/uL Red Blood Count 2.94 L 4.50-6.20 MIL/uL Hemoglobin 8.7 L 14.0-18.0 g/dL Hematocrit 25.2 L 42-54 % Mean Corpuscular Volume 85.7 79-99 fL Mean Corpuscular Hemoglobin 29.6 27.0-33.0 pg Mean Corpuscular Hemoglobin Concent 34.5 32.0-36.0 g/dL Red Cell Distribution Width 14.0 11.0-15.5 % Platelet Count 455 H 130-400 K/uL Mean Platelet Volume 9.5 7.5-10.5 fL Immature Granulocyte % (Auto) 1.2 H 0-1 % Neutrophils (%) (Auto) 63.0 40.0-77.0 % Lymphocytes (%) (Auto) 22.1 21.0-51.0 % Monocytes (%) (Auto) 8.6 3.0-13.0 % Eosinophils (%) (Auto) 4.1 0.0-8.0 % Basophils (%) (Auto) 1.0 0.0-5.0 % Neutrophils # (Auto) 5.4 1.8-7.7 K/uL Lymphocytes # (Auto) 1.9 1.0-4.8 K/uL Monocytes # (Auto) 0.7 0.1-1.0 K/uL Eosinophils # (Auto) 0.35 0.00-0.70 K/uL Basophils # (Auto) 0.09 0.00-0.20 K/uL Absolute Immature Granulocyte (auto 0.10 0-1 K/uL Nucleated Red Blood Cells 0.0 0.0-0.19 % Sodium Level 135 L 136-145 mmol/L Potassium Level 4.2 3.5-5.1 mmol/L Chloride Level 100 L 101-111 mmol/L Carbon Dioxide Level 27 21-32 mmol/L Blood Urea Nitrogen 8 7-18 mg/dL Creatinine 0.8 0.5-1.3 mg/dL Glomerular Filtration Rate Calc 110 >90 mL/min Random Glucose 136 H 70-105 mg/dL Total Calcium 8.8 8.5-10.1 mg/dL Magnesium Level 1.80 1.80-2.40 mg/dL Vancomycin Level Trough 9.2 L 10.0-20.0 UG/ML Iron Level 17 L 65-175 mcg/dL Total Iron Binding Capacity 151 L 250-450 mcg/dL Percent Iron Saturation 11.2 L 30-44 % Vitamin B12 Level 555 193-986 pg/mL Folic Acid (LAB) 12.40 2-20 ng/mL DIAGNOSTIC/RADIOLOGY: RUN DATE: 09/25/24 [facility] PAGE 2 RUN TIME: 2414 [address] [address], [place] [address] Department of Laboratories CLIA # [id number] Geotechnicial Properties Technician: Nixon Sharma DO Specimen Report SPEC: [id number] PATIENT: VERNON LAMBERT [id number] (Continued) Procedure Result Brad Date-Time AEROBIC CULTURE Preliminary 09/25/24-1033 [facility] DESCRIPTION: REPORT 1: 1+ GRAM NEGATIVE RODS IDENTIFICATION AND SENSITIVITY TO FOLLOW REPORT 2: SLOW-GROWER; RESULTS PENDING ASSESSMENT: Right great toe diabetic ulcer with osteomyelitis. Right ankle cellulitis and abscess status post incision and drainage on 09/22/2024. Infection with multidrug resistant organism Infection with methicillin susceptible Staphylococcus aureus. Iron-deficiency anemia. Diabetes mellitus. Morbid obesity. PLAN: From Infectious Disease standpoint patient can be discharged on cephalexin 500 mg t.i.d. x 6 weeks and levofloxacin 750 mg p.o. daily x 6 weeks. Prescription was written. This case was reviewed and discussed with my supervising physician and the above assessment and plan was formulated and agreed upon. ATTESTATION BY PHYSICIAN I have seen and examined the patient. I reviewed the documentation, medical decision making, and treatment plan as noted by the mid-level provider above. I agree with the findings and plan of care. YANI MENDOZA MD, [facility] Sep 26, 2024 16:24
== END 2024-09-26 19:10 | disposition home or self-care (01) | DRG 982 ==
LOC: EDH 20:08 → EDHIP 20:09 → 3BH 09-21 01:10
PROVIDERS: ADMIT Internal Medicine; ATTEND Internal Medicine
PROC: 0S9F0ZZ Drainage of Right Ankle Joint, Open Approach (ICD-10-PCS; principal; 2024-09-22 18:22)
DX: E11.628 Type 2 diabetes mellitus with other skin complications (principal); E87.1 Hypo-osmolality and hyponatremia; L02.415 Cutaneous abscess of right lower limb; M00.9 Pyogenic arthritis, unspecified; M86.8X6 Other osteomyelitis, lower leg; Z16.12 Extended spectrum beta lactamase (ESBL) resistance; L03.115 Cellulitis of right lower limb; E11.621 Type 2 diabetes mellitus with foot ulcer; E11.42 Type 2 diabetes mellitus with diabetic polyneuropathy; E11.69 Type 2 diabetes mellitus with other specified complication; E66.01 Morbid (severe) obesity due to excess calories; E88.09 Other disorders of plasma-protein metabolism, not elsewhere classified; B96.1 Klebsiella pneumoniae [K. pneumoniae] as the cause of diseases classified elsewhere; D50.9 Iron deficiency anemia, unspecified; D75.838 Other thrombocytosis; F17.210 Nicotine dependence, cigarettes, uncomplicated; I10 Essential (primary) hypertension; L97.519 Non-pressure chronic ulcer of other part of right foot with unspecified severity; Z79.899 Other long term (current) drug therapy
CPT/HCPCS: 36415; 71045; 73610; 73630; 73718; 80048; 80053; 80202; 81001; 82550; 82607; 82746; 82948; 83036; 83540; 83550; 83605; 83735; 84145; 84484; 85025; 85651; 87040; 87070; 87076; 87086; 87186; 93005; 99285; G0378; J1171; J1644; J1756; J1815; J2250; J2405; J2543; J2704; J3010; J3370; J3490; J7030; A4649; J0665